=== PATIENT | male | born 1950 | race Caucasian/White ===

== ENCOUNTER 2018-07-11 11:59 | Outpatient (REF) | payer MEDICARE, BC, SELFPAY ==
[2018-07-11 12:50] LABS: Bilirubin Negative (Negative); Blood Trace-lysed (Negative); Clarity Clear; Glucose Negative (Negative); Ketones Negative (Negative); Leukocyte Esterase Negative (Negative); Nitrite Negative (Negative); Urobilinogen 0.2 EU/dL (Up TO 0.2)
[2018-07-11 13:19] LABS: Bacteria Rare HPF (Negative); C & S Indicated? No; Casts Negative LPF (Negative); Crystals Negative HPF (Negative); Epithelial Cells Rare HPF (Negative); Mucus Moderate (Negative); RBC 0-2 (0-2); WBC 0-2 HPF (0-5)
== END 2018-07-11 12:19 ==
LOC: LBN 11:59
PROVIDERS: PCP Emergency Medicine; Visit Provider Emergency Medicine
DX: R31.9 Hematuria, unspecified (principal)
CPT/HCPCS: 81003; 81015

== ENCOUNTER 2018-07-11 13:47 | Outpatient (CLI) | payer MEDICARE, BC, SELFPAY ==
--- NOTE | 2018-07-11 09:16 | DI.RAD_ITS ---
SYMPTOMS/DIAGNOSIS: ASTHMA, J45.909 PA AND LATERAL CHEST: Comparison 02/06/02. The heart size and pulmonary vasculature are within normal limits. The lungs are clear. No effusions or pneumothoraces are identified. The lungs appear somewhat hyperinflated with flattened diaphragms suggesting air trapping. Degenerative changes are seen in the spine. IMPRESSION: Hyperextended lungs which may reflect COPD. No focal acute infiltrates are seen.
== END 2018-07-11 14:07 ==
PROVIDERS: PCP Emergency Medicine; Visit Provider Emergency Medicine
DX: J45.909 Unspecified asthma, uncomplicated (principal); J44.9 Chronic obstructive pulmonary disease, unspecified
CPT/HCPCS: 71046

== ENCOUNTER 2019-03-12 16:48 | Outpatient (CLI) | payer MEDICARE, BC, SELFPAY ==
--- NOTE | 2019-03-12 13:15 | DI.RAD_ITS ---
SYMPTOMS/DIAGNOSIS: IMPINGEMENT SYNDROME OF LEFT SHOULDER, M75.42 LEFT SHOULDER: Multiple views. There are mild degenerative changes at the acromioclavicular joint. The glenohumeral joint appears well maintained. The bones are intact and normally mineralized. The soft tissues are unremarkable. IMPRESSION: Osteoarthritis of the left AC joint.
== END 2019-03-12 17:08 ==
PROVIDERS: PCP Emergency Medicine; Visit Provider Family Medicine
DX: M75.42 Impingement syndrome of left shoulder (principal); M19.012 Primary osteoarthritis, left shoulder
CPT/HCPCS: 73030

== ENCOUNTER → 2019-04-02 14:09 | Outpatient (BNVA) | payer MEDICARE, BC, SELFPAY | PROVIDERS: PCP Emergency Medicine; Referring Provider Emergency Medicine; Visit Provider Student in an Organized Health Care Education/Training Program | DX: M75.82 Other shoulder lesions, left shoulder (principal); I10 Essential (primary) hypertension | CPT/HCPCS: 20610; 99202; 99203; J1040 ==

== ENCOUNTER 2019-04-11 09:02 | Outpatient (CLI) | payer MEDICARE, BC, SELFPAY ==
[2019-04-11 13:17] LABS: Calculated LDL 85 mg/dL; Cholesterol 158 mg/dL (50-200); HDL Cholesterol 42 mg/dL (40-60); Triglyceride 157 mg/dL (30-150)
[2019-04-12 10:03] LABS: PSA, Screening 2.1 ng/ml (0-4.5)
== END 2019-04-11 09:22 ==
PROVIDERS: PCP Emergency Medicine; Visit Provider Emergency Medicine
DX: I10 Essential (primary) hypertension (principal); Z12.5 Encounter for screening for malignant neoplasm of prostate
CPT/HCPCS: 36415; 80061; 83721; 84153

== ENCOUNTER → 2019-05-21 12:51 | Outpatient (BNVA) | payer MEDICARE, BC, SELFPAY | PROVIDERS: PCP Emergency Medicine; Referring Provider Emergency Medicine; Visit Provider Student in an Organized Health Care Education/Training Program | DX: M75.82 Other shoulder lesions, left shoulder (principal); Z98.890 Other specified postprocedural states | CPT/HCPCS: 99213 ==

== ENCOUNTER 2019-05-25 08:49 | Outpatient (CLI) | payer MEDICARE, BC, SELFPAY ==
--- NOTE | 2019-05-25 09:35 | DI.MRI_ITS ---
SYMPTOM/DIAGNOSIS: LT SHOULDER PAIN, DECREASED RANGE OF MOTION LEFT SHOULDER MRI: Routine noncontrast examination was performed. There is hyperintense signal seen on the T 2 weighted images within the supraspinatus tendon at its insertion site consistent with a partial tear. The infraspinatus tendon is intact as are the subscapularis and teres minor tendons. The muscles show normal signal and size. No significant muscular fatty atrophy is present. The biceps tendon has a normal appearance and location. There is increased signal seen within the superior labrum consistent with a tear. The remainder of the labrum is grossly unremarkable. There are hypertrophic changes seen at the acromioclavicular joint consistent with degenerative change. Marrow signal is otherwise within normal limits. No evidence of an occult facture or avascular necrosis. There is a small amount of fluid in the joint space. No other abnormal fluid collections are seen. No soft tissue masses are appreciated. The ligaments appear grossly unremarkable. The articular cartilage at the glenohumeral joint appears unremarkable. IMPRESSION: 1. Partial tear involving the supraspinatus tendon. 2. Findings suggestive of a tear involving the superior labrum consistent with a slap-type II injury.
== END 2019-05-25 09:09 ==
PROVIDERS: PCP Emergency Medicine; Visit Provider Student in an Organized Health Care Education/Training Program
DX: M25.512 Pain in left shoulder (principal); M75.102 Unspecified rotator cuff tear or rupture of left shoulder, not specified as traumatic; S43.432A Superior glenoid labrum lesion of left shoulder, initial encounter
CPT/HCPCS: 73221

== ENCOUNTER → 2019-05-30 14:13 | Outpatient (BNVA) | payer MEDICARE, BC, SELFPAY | PROVIDERS: PCP Emergency Medicine; Referring Provider Emergency Medicine; Visit Provider Student in an Organized Health Care Education/Training Program | DX: M75.112 Incomplete rotator cuff tear or rupture of left shoulder, not specified as traumatic (principal); M19.012 Primary osteoarthritis, left shoulder | CPT/HCPCS: 99213 ==

== ENCOUNTER 2019-06-25 00:33 | Outpatient (CLI) | payer MEDICARE, BC, SELFPAY ==
--- NOTE | 2019-06-25 06:54 | DI.RAD_ITS ---
EXAM: RF JOINT INJECTION FLUORO GUID CLINICAL HISTORY: Left Shoulder Injection,LT ROTATOR CUFF TEAR, M75.102. TECHNIQUE: 2D and realtime digital imaging was performed. COMPARISON: No exams were available for comparison FINDINGS: A needle is positioned over the humeral head in conjunction with a joint injection carried out by Dr. Drummond. Contrast material is noted in the joint. Please see Dr. Drummond's procedure report for further information.
[2019-06-25] MEDS: Omnipaque 300 MG/ML 10 ML BTL IJ (07:55)
[2019-06-25] MEDS: Bupivacaine 0.5% Pres-Free 10 ML VIAL IJ (07:55)
[2019-06-25] MEDS: methylPREDNISolone ACETATE 80 MG/ML VIAL IM (14:41)
--- NOTE | 2019-06-25 16:50 | W.PROCNOTE ---
Date of service: 06/25/19 Time of Service: 08:06 Procedure Note Date of procedure: 06/25/19 Procedure: Left Shoulder Injection Surgeon/Proceduralist/Physician: Shubham Drummond Procedure Diagnosis: Left rotator cuff tendinitis Procedure Indications: Sal has had persistent pain of the LEFT shoulder. Noninvasive measures have been tried. To serve as both diagnostic and therapeutic, an injection under fluoroscopy was recommended. I had discussed the risks of the procedure and the patient elected to proceed. Procedure Description: Sal was greeted in the flouroscopy room. The correct side was identified and the consent was reviewed with the patient and signed. The patient was then placed in the supine position on the fluoroscopy table. The LEFT shoulder was then prepped with Chloraprep. The anterior injection starting point was identiifed by bony landmarks and fluoroscopy. The skin and soft tissue in the tract of the injection was anesthetized with 1% Lidocaine. A spinal needle was then inserted deep into the shoulder joint at the level of the recess between the glenoid and superior humeral head. A small amount of Omnipaque solution was injected to confirm intraarticular placement. Once confirmed, the shoulder was injected with 4cc of 0.5% Bupivicaine and 80mg of Depo-Medrol. A bandaid was placed on the injection site. The patient tolerated the procedure well and noted improvement in pre-injection pain.
== END 2019-06-25 00:53 ==
PROVIDERS: PCP Emergency Medicine; Visit Provider Student in an Organized Health Care Education/Training Program
DX: M75.102 Unspecified rotator cuff tear or rupture of left shoulder, not specified as traumatic (principal); M25.512 Pain in left shoulder; M75.82 Other shoulder lesions, left shoulder
CPT/HCPCS: 20610; 77002; J1040

== ENCOUNTER 2019-09-03 10:33 | Outpatient (CLI) | payer MEDICARE, BC, SELFPAY ==
--- NOTE | 2019-09-03 10:54 | DI.RAD_ITS ---
EXAM: XR THUMB LT INDICATION: L thumb CMC and MCP pain. COMPARISON: No exams were available for comparison TECHNIQUE: 2D digital imaging was performed. FINDINGS: At the 1st carpometacarpal joint, there is moderate joint space narrowing and prominent periarticular spurring. Mild subchondral sclerosis is present. The metacarpal phalangeal joint is well maintaine d. The interphalangeal joint shows joint space narrowing and periarticular spurring. The soft tissu es are unremarkable. IMPRESSION: Degenerative changes of the left thumb.
== END 2019-09-03 10:53 ==
PROVIDERS: PCP Emergency Medicine; Referring Provider Emergency Medicine; Visit Provider Student in an Organized Health Care Education/Training Program
DX: M79.645 Pain in left finger(s) (principal); M18.12 Unilateral primary osteoarthritis of first carpometacarpal joint, left hand; I10 Essential (primary) hypertension
CPT/HCPCS: 99214; 73140

== ENCOUNTER 2020-03-08 13:12 | Emergency (ER) | payer MEDICARE, BC, SELFPAY ==
[2020-03-08 13:20] VITALS: BP 149/77; PULSE 76; RESP 18; TEMP 36.7; O2SAT 95
--- NOTE | 2020-03-08 13:33 | W.ED.GENAD ---
Discharge Plan Disposition Patient Disposition: HOME Condition: Good Discharge Details Chief Complaint: Cellulitis Clinical Impression: Pain of toe of right foot Primary Care Provider: Adi Bonilla ED Provider: Luis Mchugh Home Meds and New Rx's Prescriptions: New prednisone 20 mg tablet 40 mg PO DAILY 5 Days Qty: 10 RF: 0 colchicine 0.6 mg capsule 0.6 mg PO BID Qty: 3 RF: 0 Continued amlodipine 10 mg tablet 10 mg PO DAILY Qty: 90 RF: 3 cephalexin 500 mg tablet 500 mg PO QID 7 Days Qty: 28 RF: 0 sildenafil [Viagra] 100 MG tablet 1 tab PO PRN Qty: 5 RF: 12 losartan-hydrochlorothiazide [Hyzaar] 100-25 mg tablet 1 tab PO DAILY Qty: 90 RF: 4 albuterol sulfate [Proventil HFA] 90 mcg/actuation HFA aerosol inhaler 2 puff Inhalation QID MDD 10 puffs PRN (Reason: asthma) Qty: 3 RF: 6 Flovent HFA 110 mcg/actuation HFA aerosol inhaler 2 puff Inhalation BID Qty: 3 RF: 6 pravastatin [Pravachol] 40 mg tablet 40 mg PO DAILY Qty: 90 RF: 4 Discharge Instructions Additional Instructions: We will ask our care management team to make you a follow-up appointment in podiatry clinic. Please begin the colchicine 1 tablet every 12 hours for a total of 3 doses. You may begin this this evening. You were given a first dose of prednisone and your next dose will be by prescription tomorrow. As we discussed we will continue treatment for skin infection with the previously prescribed cephalexin/Keflex. Please finish the entire course of this prescription. Return if develop a shaking chill, fever, or any other acute concerns. May apply ice to area to reduce discomfort. Elevate to reduce pain and swelling. Please wear an open toe shoe as we discussed. Medical Decision Making 70-year-old male presents from home stating he is on day 3 of right long/2nd toe erythema and pain. He was seen in clinic yesterday and started on What she has been taking. Overnight he feels there is subjective worsening for which he seeks evaluation today. He is afebrile and well-appearing. The DIP joint of the right 2nd toe is erythematous and swollen, tender to the touch. The patient's white blood cell count is 8, hematocrit 47, platelets 206. Chemistries reassuring, creatinine is 1.1, C-reactive protein 0.3, uric acid 5.8. X-ray with no evidence of acute fracture. See formal report. Discussed with patient that given the appearance, location, question evidence of crystal formation of the soft tissues, moderately elevated uric acid and CRP that I do feel there is a strong consideration for gout. We will continue Keflex. I will refer the patient to podiatry for recheck and follow-up. I will place him on 3 0.6 mg doses of colchicine and a brief burst of prednisone. He understands homecare, indications to seek reevaluation. Lab Data Lab results reviewed: Yes I reviewed the patient's lab results. Labs: Laboratory Results - last 24 hr 03/08/20 03/08/20 13:49 13:49 WBC 8.80 RBC 5.22 Hgb 16.3 Hct 47.1 MCV 90.2 MCH 31.2 MCHC 34.6 RDW 13.3 Plt Count 206 MPV 10.7 Immature Gran % 0.2 Neutrophils % 59.9 Lymphocytes % 24.0 Monocytes % 10.9 Eosinophils % 4.9 Basophils % 0.1 Absolute Neutrophils 5.27 Absolute Lymphocytes 2.11 Absolute Monocytes 0.96 H Absolute Eosinophils 0.43 Absolute Basophils 0.01 Sodium 139 Potassium 3.5 Chloride 102 Carbon Dioxide 26.8 Anion Gap 10.2 BUN 22 H Creatinine 1.14 Estimated GFR/1.73 m2 >= 60.00 Glucose 139 H Uric Acid 5.8 Calcium 8.7 C-Reactive Protein 0.36 H HPI General Mode of arrival: ambulatory. Date/Time Provider Initiated Documentation: 03/08/20 13:19. Information obtained by: patient. History of Present Illness 70 year old M presents to the emergency department with the chief complaint of Right third toe pain and erythema, on Keflex yesterday, described as moderate, Quality is described as dull and constant, and is localized to the right and lower extremity. Patient reports no radiation. Patient started experiencing this day(s) and it has been constant. No relieving factors improve symptom(s), No exacerbating factors reported . Patient notes other (No chills.); denies fever/chills. Patient did receive the following treatments prior to arrival, other (On Keflex since yesterday) Related Data Home Medications Medication Instructions Recorded Confirmed sildenafil [Viagra] 1 tab PO PRN #5 tab 12/08/16 03/08/20 losartan 100 1 tab PO DAILY #90 tab 03/13/19 03/08/20 mg-hydrochlorothiazide 25 mg tablet albuterol sulfate 90 mcg/actuation 2 puff INHALATION QID PRN #3 puff 07/24/19 03/08/20 aerosol inhaler MDD 10 puffs fluticasone propionate 110 2 puff INHALATION BID #3 puff 07/24/19 03/08/20 mcg/actuation HFA aerosol inhaler amlodipine 10 mg tablet 10 mg PO DAILY #90 tab 08/01/19 03/08/20 pravastatin 40 mg tablet 40 mg PO DAILY #90 tab-cap 09/11/19 03/08/20 cephalexin 500 mg tablet 500 mg PO QID 7 Days #28 tab 03/07/20 03/08/20 colchicine 0.6 mg PO BID #3 cap 03/08/20 prednisone 40 mg PO DAILY 5 Days #10 tab 03/08/20 Previous Rx's Medication Instructions Recorded losartan 100 1 tab PO DAILY #90 tab 03/13/19 mg-hydrochlorothiazide 25 mg tablet albuterol sulfate 90 mcg/actuation 2 puff INHALATION QID PRN #3 puff 07/24/19 aerosol inhaler MDD 10 puffs fluticasone propionate 110 2 puff INHALATION BID #3 puff 07/24/19 mcg/actuation HFA aerosol inhaler amlodipine 10 mg tablet 10 mg PO DAILY #90 tab 08/01/19 pravastatin 40 mg tablet 40 mg PO DAILY #90 tab-cap 09/11/19 cephalexin 500 mg tablet 500 mg PO QID 7 Days #28 tab 03/07/20 colchicine 0.6 mg PO BID #3 cap 03/08/20 prednisone 40 mg PO DAILY 5 Days #10 tab 03/08/20 Allergies Allergy/AdvReac Type Severity Reaction Status Date / Time enalapril Allergy Unknown RASH Verified 03/08/20 13:25 General Stated Complaint: Cellulitis BLAINE: 3 Review of Systems Narrative: No fever or chills, denies other injury or illness. 5 systems reviewed and negative. [facility] Medical History Asthma (Acute) BPH (benign prostatic hyperplasia) (Acute) Cardiac murmur (Acute) ECHO=trivial MR; stress echo=normal Essential hypertension (Acute 08/27/13) Generalized osteoarthrosis (Acute 05/02/12) RIGHT HIP W/ REPLACEMENT 05/2012 Hyperlipidemia (Acute) Obstructive sleep apnea syndrome (Acute) CPAP Polyuria (Inactive 05/26/12) PSA elevation (Acute 09/01/08) to Hina Undiagnosed cardiac murmurs (Acute) ECHO=trivial MR; stress echo=normal Surgical History Colonoscopy - MAC 2009 Status post hip replacement (Inactive) Total replacement of hip (~05/2012) right Family History Mother Hyperlipidemia Father Heart disease Myocardial infarction Sister No problems noted. Brother Heart disease Myocardial infarction Grandfather Heart disease Grandfather Heart disease Grandmother Hyperlipidemia Grandmother Stroke FAMILY HISTORY Heart disease Brother No problems noted. Sister No problems noted. Sister No problems noted. Brother No problems noted. Social History Smoking/Tobacco Use Status: Never Alcohol Intake: current Alcohol Intake frequency: 0-2 drinks per day Alcohol type: beer, wine and hard liquor Substance use type: does not use Household members: spouse current occupation: CPA Pets and animals: No Current gender identity: male What type of physical activity do you participate in: walking Duration: 30-45 minutes/day Frequency: 3-4 times per week Bhumi/Cheondoism: Scientology Special bhumi needs: No Do you feel safe at home: Yes Do you feel safe in your relationship?: Yes Exam Narrative Exam Narrative: GEN: awake, alert, oriented 3. Pleasant, well groomed, interactive. HEAD: Normocephalic, atraumatic EYES: PERRL, EOMI NECK: Full ROM, no PATRICK, no menigismus CHEST/RESP: Nontender, clear to auscultation bilateral, no wheeze/rhonchi/rales CARDIOVASCULAR: RRR, no murmur, rub alisa. 2+ Rad pulse bilateral EXT: Full ROM, right 2nd toe DIP joint is erythematous and tender. No distal or proximal tenderness. Palpable dorsalis pedis pulse bilaterally. The right foot is mildly warm to the touch. Neuro: Grossly normal neurologic exam, conversant, interactive. Psych: Speech fluent, thoughts congruent, affect normal Course Vital Signs Vital signs: Vital Signs Temperature 36.7 C 03/08/20 13:20 Pulse 76 03/08/20 13:20 Respiratory Rate 18 03/08/20 13:20 Blood Pressure 149/77 H 03/08/20 13:20 Pulse Oximetry 95 03/08/20 13:20 Temperature 36.7 C 03/08/20 13:20 Temperature Source Temporal Artery Scan 03/08/20 13:20 Pulse 76 03/08/20 13:20 Respiratory Rate 18 03/08/20 13:20 Respiratory Effort Non-Labored 03/08/20 13:27 Blood Pressure 149/77 H 03/08/20 13:20 Blood Pressure Position Sitting 03/08/20 13:20 Pulse Oximetry 95 03/08/20 13:20 Oxygen Delivery Method Room Air 03/08/20 13:20 Oxygen Flow Rate 0 03/08/20 13:20 Pain Level 1 03/08/20 13:20 Comment 03/08/20 13:20
[2020-03-08 13:59] LABS: Abs Immature Grans 0.02 k/cumm (0.0-0.09); Absolute Basophil Count 0.01 k/cumm (0.0-0.2); Absolute Eosinophil Count 0.43 k/cumm (0.0-0.7); Absolute Lymphocyte Count 2.11 k/cumm (1.2-3.4); Absolute Monocyte Count 0.96 k/cumm (0.11-0.7); Absolute Neutrophil Count 5.27 k/cumm (1.2-6.7); Basophils % 0.1; Eosinophils % 4.9; HCT 47.1 % (40.0-50.0); HGB 16.3 g/dL (13.5-17.5); Immature Grans % 0.2 %; Mean Corp. HGB Concentration 34.6 g/dL (32.0-36.0); Mean Corpuscular Hemoglobin 31.2 pg (27.0-33.0); Mean Corpuscular Volume 90.2 fL (80-95); Mean Platelet Volume 10.7 fL (8.0-11.0); Monocytes % 10.9; Neutrophils % 59.9; Platelet Count 206 x1000/uL (130-400); RBC 5.22 m/cumm (4.50-6.00); RBC Distribution Width 13.3 % (11.8-14.1)
[2020-03-08 14:07] LABS: Anion Gap 10.2 mmol/L (3-11); BUN 22 mg/dL (7-18); C-Reactive Protein 0.36 mg/dL (0.0-0.3); CO2 26.8 mmol/L (21.0-32.0); CREATININE 1.14 mg/dL (0.70-1.30); Calcium 8.7 mg/dL (8.5-10.1); Chloride 102 mmol/L (98-107); Glucose 139 mg/dL (74-106); Potassium 3.5 mmol/L (3.5-5.1); Sodium 139 mmol/L (136-145); Uric Acid 5.8 mg/dL (3.5-7.2)
--- NOTE | 2020-03-08 14:08 | DI.RAD_ITS ---
EXAM: XR TOE RT SECOND CLINICAL HISTORY: pain and swelling. TECHNIQUE: 2D digital imaging was performed. COMPARISON: No exams were available for comparison FINDINGS: BONES: No acute fracture is present. No bony destructive lesion is seen. JOINTS: No dislocation present. SOFT TISSUE: Soft tissue calcification medial to the middle phalanx of the 2nd toe. This is of uncer tain, if any clinical significance. The underlying bone is intact. No lytic or sclerotic lesion is seen. IMPRESSION: No evidence of acute fracture, dislocation, or subluxation. DATA REPOSITORY: RADIATION DOSE DELIVERED:
--- NOTE | 2020-03-08 14:15 | DI.VRAD_ITS ---
Addendum created by Sage Sofia MD on 03/08/2020 2:47:11 PM EDT Correction: There is a 5 mm ossifications in the on the medial aspect of the 2nd toe at the level of the middle phalanx which does not appear to be an acute process. Initial report created on 03/08/2020 2:14:56 PM EDT PROCEDURE INFORMATION: Exam: XR Right Toe(s) Exam date and time: 03/08/2020 2:02 PM Age: 70 years old Clinical indication: Toes; Right; Patient HX: 2nd toe pain, no known injury. Patient sts woke up and toe was red and swollen. No prev FX TECHNIQUE: Imaging protocol: XR Right toes. Views: Minimum 2 views. COMPARISON: No relevant prior studies available. FINDINGS: Bones/joints: Unremarkable. No acute fracture. Soft tissues: Normal. IMPRESSION: No acute findings. Dictated and Authenticated by: Sage Sofia MD. Ordering:HARVEY Smith MD
[2020-03-08] MEDS: predniSONE 40 MG, predniSONE 10 MG 50 MG PO (15:15)
--- NOTE | 2020-03-08 18:29 | NUR.NOTE ---
Nursing Note: podiatry consult faxed [facility]
== END 2020-03-08 15:19 | disposition home or self-care (01) ==
PROVIDERS: Emergency Provider Emergency Medicine; PCP Emergency Medicine
DX: M79.674 Pain in right toe(s) (principal); I10 Essential (primary) hypertension
CPT/HCPCS: 36415; 80048; 99284; 73660; 84550; 85025; 86140; J7512

== ENCOUNTER 2020-03-18 01:01 | Outpatient (CLI) | payer MEDICARE, BC, SELFPAY ==
[2020-03-18 17:21] LABS: Hemoglobin A1C 5.7 % (3.8-5.6)
== END 2020-03-18 01:21 ==
PROVIDERS: PCP Emergency Medicine; Visit Provider Emergency Medicine
DX: E11.9 Type 2 diabetes mellitus without complications (principal)
CPT/HCPCS: 36415; 83036

== ENCOUNTER 2020-05-19 10:46 | Outpatient (CLI) | payer MEDICARE, BC, SELFPAY ==
--- NOTE | 2020-05-19 11:00 | DI.RAD_ITS ---
EXAM: XR CHEST 2V PA LATERAL CLINICAL HISTORY: cough, SOB. r/o pneumonia,j40, bronchitis TECHNIQUE: 2D digital imaging was performed. COMPARISON: No exams were available for comparison FINDINGS: MEDIASTINUM: Normal. HEART: Normal. PULMONARY VASCULATURE: Normal. LUNGS: Clear. PLEURAL SPACE: No pleural effusion or pneumothorax. BONE:Normal. OTHER FINDINGS:Normal. IMPRESSION: No acute pulmonary findings. DATA REPOSITORY: RADIATION DOSE DELIVERED:
== END 2020-05-19 11:06 ==
PROVIDERS: PCP Emergency Medicine; Visit Provider Physician Assistant
DX: R05 Cough (principal); J40 Bronchitis, not specified as acute or chronic
CPT/HCPCS: 71046

== ENCOUNTER 2020-05-19 12:52 | Outpatient (CLI) | payer MEDICARE, BC, SELFPAY ==
[2020-05-21 21:15] LABS: SARS-CoV-2 RNA Undetected (Undetected); SARS-CoV-2 Specimen Source Nasopharynx
== END 2020-05-19 13:12 ==
PROVIDERS: PCP Emergency Medicine; Visit Provider Physician Assistant
DX: R05 Cough (principal); R06.02 Shortness of breath; J40 Bronchitis, not specified as acute or chronic
CPT/HCPCS: U0003; 71046

== ENCOUNTER 2020-06-30 07:27 | Outpatient (CLI) | payer MEDICARE, BC, SELFPAY ==
[2020-07-01 17:47] LABS: COVID-19 RT-PCR Result NEGATIVE (Negative)
== END 2020-06-30 07:47 ==
PROVIDERS: PCP Emergency Medicine; Visit Provider Family Medicine
DX: Z11.59 Encounter for screening for other viral diseases (principal); Z01.811 Encounter for preprocedural respiratory examination
CPT/HCPCS: U0003

== ENCOUNTER 2020-07-03 04:04 | Outpatient (CLI) | payer MEDICARE, BC, SELFPAY ==
[2020-07-03] MEDS: Albuterol HFA 18 GM 200 PUFF INH IH (12:03)
[2020-07-03] MEDS: Inhaler, Assist Device 1 EACH MC (12:03)
[2020-07-03] MEDS: Methacholine 100 MG VIAL IH (12:03)
--- NOTE | 2020-07-07 08:19 | W.PFT ---
Date of service: 07/03/20 Time of Service: 09:59 Pulmonary Function Test Result Interpretation Spirometry: Poor patient effort for spirometry. Spirometry shows mild obstructive airways disease with no significant bronchodilator response Lung Volumes: No evidence of restriction. Mild hyperinflation and air trapping Diffusion Capacity: Normal Airway Pressure: Normal Impression Poor patient effort for the spirometry. It shows Borderline mild obstructive airways disease with no significant bronchodilator response However these results may not be a true reflection of obstructive airways disease due to suboptimal patient effort Clinical Correlation therefore is recommended. Methacholine Challnege Test Date of Service Date of Service: 07/03/2020 Note After poor effort for spirometry showing possible borderline mild obstructive airways disease methacholine challenge testing was carried out up to methacholine concentration of 1 mg/mL at which point the patient had a 26% drop in FEV1 but again still showing a poor patient effort. Impression Positive methacholine challenge test.
== END 2020-07-03 04:24 ==
PROVIDERS: PCP Emergency Medicine; Visit Provider Emergency Medicine
DX: R05 Cough (principal); R94.2 Abnormal results of pulmonary function studies
CPT/HCPCS: 94060; 94726; 94729; 95070; 94010; J7674

== ENCOUNTER → 2021-02-10 13:15 | Outpatient (BNVA) | payer MEDICARE, BC, SELFPAY | PROVIDERS: PCP Emergency Medicine; Referring Provider Emergency Medicine; Visit Provider Surgery | DX: Z12.11 Encounter for screening for malignant neoplasm of colon (principal); Z12.12 Encounter for screening for malignant neoplasm of rectum ==

== ENCOUNTER 2021-03-26 06:07 | Day surgery (SDC) | payer MEDICARE, BC, SELFPAY ==
[2021-03-26 06:19] VITALS: BP 146/83; PULSE 65; RESP 16; TEMP 36.5; O2SAT 96
[2021-03-26] MEDS: Lactated Ringers 1,000 ML 80 ML IV (06:39)
--- NOTE | 2021-03-26 06:54 | W.ANESPRE ---
General Info Date of Service Date Performed: 03/26/21 Height: 6 ft Weight: 100.4 kg Body Mass Index (BMI): 29.9 Surgical Procedure: Operation Date: 03/26/21 07:35 Proposed Procedures Side Surgeon heather Miller MD Meds Allergies and Home Medications Allergies Allergy/AdvReac Type Severity Reaction Status Date / Time enalapril Allergy Unknown RASH Verified 03/24/21 11:42 Home Medication Medication Instructions Recorded sildenafil [Viagra] 1 tab PO PRN #5 tab 12/08/16 losartan 100 1 tab PO DAILY #90 tab 03/26/20 mg-hydrochlorothiazide 25 mg tablet budesonide-formoterol HFA 160 2 puff INHALATION BID #10.2 g 07/02/20 mcg-4.5 mcg/actuation aerosol inhaler albuterol sulfate 90 mcg/actuation 2 puff INHALATION QID PRN #3 puff 08/06/20 aerosol inhaler MDD 10 puffs amlodipine 10 mg tablet 10 mg PO DAILY #90 tab 08/06/20 pravastatin 40 mg tablet 40 mg PO DAILY #90 tab-cap 12/22/20 Current Visit Medications: Current Medications Generic Name Dose Route Start Last Admin Trade Name Freq PRN Reason Stop Dose Admin Ringer's Solution 1,000 mls @ 80 mls/hr 03/26/21 06:00 03/26/21 06:39 IV 04/24/21 23:59 80 mls/hr INFUSION SHERI Administration IV Miscellaneous Supplies 1 each 03/26/21 06:00 Iv Access IV 04/24/21 23:59 DIRECTED SHERI Sodium Chloride 0 ml 03/26/21 06:00 Normal Saline Flush 10 Ml Syr IV 04/24/21 23:59 PRN PRN Sodium Chloride 0 ml 03/26/21 06:00 Normal Saline 10 Ml Vial IJ 04/24/21 23:59 DIRECTED PRN Sterile Water 0 ml 03/26/21 06:00 Water,Injection,Sterile 10 Ml Vial IJ 04/24/21 23:59 DIRECTED PRN PFSH Active Problems Active Problems: Problem Status Onset Code Acromioclavicular joint arthritis M19.019 Left rotator cuff tear M75.102 Tendonitis of left rotator cuff M75.82 Neck pain M54.2 Cough R05 Bronchitis with acute wheezing J40 Arthritis of carpometacarpal (CMC) joint of left thumb M18.12 Asthma J45.909 BPH (benign prostatic hyperplasia) N40.0 Cardiac murmur R01.1 Essential hypertension 08/27/13 I10 Generalized osteoarthrosis 05/02/12 M15.9 Hyperlipidemia E78.5 Obstructive sleep apnea syndrome G47.33 PSA elevation 09/01/08 R97.20 Medical History Medical History Acromioclavicular joint arthritis Asthma BPH (benign prostatic hyperplasia) Cardiac murmur ECHO=trivial MR; stress echo=normal Essential hypertension (08/27/13) Generalized osteoarthrosis (05/02/12) RIGHT HIP W/ REPLACEMENT 05/2012 Hyperlipidemia Left rotator cuff tear Neck pain Obstructive sleep apnea syndrome CPAP Polyuria (05/26/12) PSA elevation (09/01/08) to Hina Tendonitis of left rotator cuff Injected: 04/02/2019 Surgical History Surgical History Colonoscopy - MAC 2008 Status post hip replacement Total replacement of hip (~05/2012) right Tobacco Smoking/Tobacco Use Status: Never Passive smoking exposure: No Alcohol Alcohol Intake: current Alcohol intake frequency: 0-2 drinks per day Alcohol type: beer, wine and hard liquor Substance Use Substance use type: does not use Vital Signs and Lab Results Vital Signs Most Recent Vital Signs in EMR: Most Recent Vital Signs Temp Pulse Resp BP Pulse Ox 36.5 C 65 16 146/83 H 96 03/26/21 06:19 03/26/21 06:19 03/26/21 06:19 03/26/21 06:19 03/26/21 06:19 Lab Results Blood Type / Crossmatch: No Data to Display Complete Blood Count: No Data to Display Complete Metabolic Panel: No Data to Display Liver Function Panel: No Data to Display Coagulation Panel: No Data to Display Cardiac Panel: No Data to Display Arterial Blood Gas: No Data to Display Venous Blood Gas: No Data to Display Pancreas Panel: No Data to Display Thyroid Panel: No Data to Display Infectious Disease: No Data to Display Blood Cultures: No Data to Display Toxicology Panel: No Data to Display Anesthesia Assessment and Plan Anesthesia History Personal History: No History of Anesthesia Complications Family History: No Family History of Anesthesia Complications Exercise Tolerance Exercise Tolerance: Metabolic Equivalents<4 Pertinent Negatives Pertinent Negatives: No Symptoms of GERD (Rare) and No Major Cardiovascular Symptoms or Complaints Cardiac & Pulmonary Exam Cardiac Exam: Normal S1/S2 Heart Sounds Pulmonary Exam: Clear Bilateral Breath Sounds Airway Exam Known Difficult Airway: No Mallampati Class: 3 Mouth Opening: Normal (> 3cm) Thyromental Distance: Greater than 3 cm Neck Range of Motion: Full ROM Neck Circumference: Normal Teeth Condition: Normal Dentition ASA Classification ASA Score: ASA 2 Emergency Case?: No NPO Status NPO Status: NPO Clears >2 hours, Solids >8 hours Anesthesia Plan Resuscitation Status: Full Code Anesthesia Technique: General Anesthesia Airway Planned: Natural Airway Monitors Used: Standard Monitors
[2021-03-26 07:00] VITALS: BMI 29.9
--- NOTE | 2021-03-26 07:33 | W.PM.HP.N ---
Date of service: 03/26/21 Time of Service: 07:38 Assessment and Plan Assessment and plan (1) Screening for colorectal cancer: Status: Acute Assessment and plan: 1) Encounter for colorectal cancer screening: Mr. Paul is a pleasant 71-year-old gentleman who is here today to discuss a screening colonoscopy. His last colonoscopy was in 2008 and was normal. He denies any changes in bowel habits, melena, hematochezia, abdominal pain, unintentional weight loss or family history of colon cancer. Risks, benefits and complications have been reviewed. Complications include but are not limited to bleeding, pain, perforation, missed small lesion/polyp, sore throat, aspiration and adverse reaction to the medications. Questions were entertained and answered to their satisfaction and they wished to proceed. No guarantees were given or implied. Proceed with colonoscopy under sedation Plan Detail Total time on date of encounter, ([id number] and non [id number]) (minutes): 20 Time was spent: providing direct patient care and documenting today's visit History of Present Illness History of Present Illness Chief Complaint: colorectal cancer screening Narrative: Mr. Paul is a 71 year old male who is here today to discuss a colonoscopy. His last colonoscopy was in 2008 and was normal. He denies any changes in bowel habits, melena, hematochezia, abdominal pain or family history of colon cancer. He is an active gentleman who does not have any shortness of breath with activity. His past medical history is significant for hypertension and hyperlipidemia. He does also have some asthma which is well controlled with Symbicort. He denies any chest pain. He has a benign cardiac murmur. He had an echo done which showed some very mild tricuspid regurg. He also underwent stress test which was normal. [facility] Medical History (Updated 03/26/21 @ 07:36 by Nish Miller MD) Acromioclavicular joint arthritis Asthma BPH (benign prostatic hyperplasia) Cardiac murmur ECHO=trivial MR; stress echo=normal Essential hypertension (08/27/13) Generalized osteoarthrosis (05/02/12) RIGHT HIP W/ REPLACEMENT 05/2012 Hyperlipidemia Left rotator cuff tear Neck pain Obstructive sleep apnea syndrome CPAP Polyuria (05/26/12) PSA elevation (09/01/08) to Hina Tendonitis of left rotator cuff Injected: 04/02/2019 Surgical History Colonoscopy - [facility] 2009 Status post hip replacement Total replacement of hip (~05/2012) right Family History Mother Hyperlipidemia Father Heart disease Myocardial infarction Brother Heart disease Myocardial infarction Grandfather Heart disease Grandfather Heart disease Grandmother Hyperlipidemia Grandmother Stroke FAMILY HISTORY Heart disease Social History Smoking/Tobacco Use Status: Never Smoking risk assessment performed?: Yes Alcohol Intake: current Alcohol Intake frequency: 0-2 drinks per day Alcohol type: beer, wine and hard liquor Substance use type: does not use Caregiver/Support person: No Household members: spouse Housing: house Communication Needs: None current occupation: CPA Pets and animals: No Sexually active: No Current gender identity: male What is your relationship status?: How often do you talk on the phone with friends or family?: decline to answer How often do you get together with friends or relatives?: decline to answer How often do you attend taoism or gnosticist services?: decline to answer Do you belong to any clubs or organized social groups?: decline to answer Panel score (0-1 are the most socially isolated patients): 1 What type of physical activity do you participate in: walking Duration: 30-45 minutes/day Frequency: 3-4 times per week Bhumi/Gnosticist: [employer] Special bhumi needs: No Do you feel safe at home: Yes Do you feel safe in your relationship?: Yes Meds Allergies and Home Medications Allergies Allergy/AdvReac Type Severity Reaction Status Date / Time enalapril Allergy Unknown RASH Verified 03/24/21 11:42 Home Medications Medication Instructions Recorded Confirmed Type sildenafil [Viagra] 1 tab PO PRN #5 tab 12/08/16 03/24/21 History losartan 100 1 tab PO DAILY #90 tab 03/26/20 03/26/21 Rx mg-hydrochlorothiazide 25 mg tablet budesonide-formoterol HFA 160 2 puff INHALATION BID #10.2 g 07/02/20 03/26/21 Rx mcg-4.5 mcg/actuation aerosol inhaler albuterol sulfate 90 mcg/actuation 2 puff INHALATION QID PRN #3 puff 08/06/20 03/26/21 Rx aerosol inhaler MDD 10 puffs amlodipine 10 mg tablet 10 mg PO DAILY #90 tab 08/06/20 03/26/21 Rx pravastatin 40 mg tablet 40 mg PO DAILY #90 tab-cap 12/22/20 03/26/21 Rx Exam Const General: cooperative, healthy appearing and comfortable Resp Effort & Inspection: normal respiratory effort Auscultation: clear to auscultation bilaterally Cardio Rate: regular rate Rhythm: regular rhythm Heart Sounds: S1 normal and S2 normal GI Palpation: soft, not firm, no guarding, not rigid and nontender Psych Appearance: grossly normal Mental Status: mental status grossly normal Speech and Movement: speech and movement normal Mood: congruent mood Affect: normal affect Attitude: cooperative Thought Content: normal Results Last Vital Signs Temp 97.7 F 03/26/21 06:19 Pulse 65 03/26/21 06:19 Resp 16 03/26/21 06:19 BP 146/83 H 03/26/21 06:19 Pulse Ox 96 03/26/21 06:19
[2021-03-26 08:25] VITALS: BP 124/84; PULSE 70; RESP 16; TEMP 36.4; O2SAT 93
--- NOTE | 2021-03-26 08:26 | W.ANESPOSTOP ---
Postoperative Evaluation Date, Time and Location Date Performed: 03/26/21 Time Performed: 08:26 Patient Location: Day Surgery Unit Vital Signs Most Recent Imported Vital Signs: Most Recent Vital Signs Temp Pulse Resp BP Pulse Ox 36.5 C 65 16 146/83 H 96 03/26/21 06:19 03/26/21 06:19 03/26/21 06:19 03/26/21 06:19 03/26/21 06:19 Most Recent Manually Entered Vital Signs: Adult Blood Pressure: 124/84 Heart Rate: 68 Respirations: 16 Oxygen Saturation (%): 95 Temperature (C): 36.4 C Pain Score (0-10 Scale): 0 Pain Score Most Recent Pain Score: Most Recent Pain Score Pain Level 10 03/26/21 06:19 Assessment Mental Status: Awake (Alert & Oriented to Patient Baseline) Airway and Respiratory Function: Patent airway with normal (patient baseline) respiratory exam Cardiovascular Function: Hemodynamically Stable Hydration Status: Adequately Hydrated Nausea & Vomiting: No Nausea or Vomiting Pain: Pt. Denies Any Pain Peripheral Nerve Block: Patient did not receive a nerve block
[2021-03-26 08:27] VITALS: BP 124/84; PULSE 68; RESP 16; TEMPC 36.4; O2SAT 95
--- NOTE | 2021-03-26 08:46 | W.COLOREPORT ---
Date of service: 03/26/21 Time of Service: 08:47 Colonoscopy Report Date of procedure: 03/26/21 Pre-op diagnosis general: screening for colorectal cancer Post-op diagnosis procedure note: same Procedure: Colonoscopy Surgeon: Nish Miller Anesthesia Type: MAC Estimated blood loss (mL): 0 Pathology: none sent Complications: None Disposition: same day Indications: This is a healthy 71-year-old male who presented for colorectal cancer screening. He has no complaints of abdominal pain, hematochezia, weight loss, or change in bowel habits. He has no family history of colorectal cancer. Prep: Miralax/Dulcolax Retraction Time: >12 minute Findings: normal colon, perianal skin tag Procedure Description: After informed consent was obtained, the patient was taken to the procedure room and placed in a left decubitus position. Monitors were applied and a time out was done. The patient's name, date of , procedure, allergies to medications, and metal in their body were reviewed. The patient was then sedated. Once sedated and comfortable, a digital rectal exam was done. External exam showed a skin tag. Internal exam revealed normal sphincter tone, and no palpable masses or gross blood. The colonoscope was then introduced and advanced to the cecum under direct visualization with no difficulty. The ileocecal valve and appendiceal orifice were visualized. The prep was good. The scope was then slowly withdrawn over 12 minutes in a circumferential manner to the rectum. In doing so, no polyps were encountered. There was no diverticulosis noted. The mucosa is pink and healthy. In the rectum, the scope was retroflexed, and no internal hemorrhoids were noted. The scope was straightened and withdrawn from the anus. The patient tolerated the procedure wll, and there were no immediate complications. The patient was taken to the Day Surgery Unit recovery area in good condition. Follow up: 10 years, or new symptoms
[2021-03-26 08:53] VITALS: BP 143/88; PULSE 60; RESP 16; TEMP 36.5; O2SAT 96
== END 2021-03-26 09:14 ==
LOC: SUR 06:07
PROVIDERS: PCP Emergency Medicine; Visit Provider Surgery
PROC: 0DJD8ZZ Inspection of Lower Intestinal Tract, Via Natural or Artificial Opening Endoscopic (ICD-10-PCS; CPT 45378; principal; 2021-03-26 07:30)
DX: Z12.11 Encounter for screening for malignant neoplasm of colon (principal); G47.33 Obstructive sleep apnea (adult) (pediatric); I10 Essential (primary) hypertension; E78.5 Hyperlipidemia, unspecified
CPT/HCPCS: G0121; J2704

== ENCOUNTER 2021-04-01 11:20 | Outpatient (CLI) | payer MEDICARE, BC, SELFPAY ==
--- NOTE | 2021-04-01 08:45 | DI.US_ITS ---
Exam(s) US SOFT TISSUE HEAD OR NECK EXAM: US SOFT TISSUE HEAD OR NECK CLINICAL HISTORY: Facial mass, R22.0, r/o cyst vs mass. TECHNIQUE: Ultrasound was performed using standard protocol. COMPARISON: No exams were available for comparison FINDINGS: Sonographic assessment utilizing grayscale and color Doppler imaging was performed and targeted to th e area of clinical concern. This is just lateral to the right eye There is a superficially located oval well-defined finding measuring approximately 10 x 6 millimeters with fluid interior and slightly thick wall measuring 2 millimeters. There does not appear to be a channel of communication to the overlying skin surface. IMPRESSION: As above. Appearance is most probably a sebaceous cyst or abscess. Appropriate follow-up recommende d DATA REPOSITORY:
== END 2021-04-01 11:40 ==
PROVIDERS: PCP Emergency Medicine; Visit Provider Nurse Practitioner Family
DX: R22.0 Localized swelling, mass and lump, head (principal)
CPT/HCPCS: 76536

== ENCOUNTER 2021-08-13 10:33 | Outpatient (CLI) | payer MEDICARE, BC, SELFPAY ==
--- NOTE | 2021-08-13 10:30 | RT.EKG_ITS ---
APPROVED REPORT Exam: Resting ECG Reason for Exam: chest discomfort Patient Location: O HR:78 bpm ECG Measurements Heart Rate 78 AXIS RI 205 P 27 QRSd 94 QRS 31 QT 381 T 98 QTc 436 Conclusion Sinus rhythm...normal P axis, V-rate 60- 99 Nonspecific T abnormalities, lateral leads...T <-0.10mV, I aVL V5 V6
== END 2021-08-13 10:34 | disposition home or self-care (01) ==
LOC: DI.CM 10:34
PROVIDERS: PCP Emergency Medicine; Visit Provider Physician Assistant
DX: R07.89 Other chest pain (principal)
CPT/HCPCS: 93010

== ENCOUNTER 2021-08-13 11:26 | Emergency (ER) | payer MEDICARE, BC, SELFPAY ==
[2021-08-13] VITALS (38 sets, daily range): BP systolic 116–142; BP diastolic 71–87; PULSE 67–79; RESP 10–21; TEMP 36.8; O2SAT 92–98
--- NOTE | 2021-08-13 11:15 | RT.EKG_ITS ---
APPROVED REPORT Exam: Resting ECG Reason for Exam: chest pain Patient Location: E HR:70 bpm ECG Measurements Heart Rate 70 AXIS IA 203 P 37 QRSd 88 QRS 16 QT 382 T 91 QTc 412 Conclusion Sinus rhythm...normal P axis, V-rate 60- 99 Nonspecific T abnormalities, lateral leads...T <-0.10mV, I aVL V5 V6. Sinus. No STEMI. I have reviewed and interpreted ECG and agree with software generated interpretation.
--- NOTE | 2021-08-13 11:29 | W.ED.GENAD ---
Discharge Plan Disposition Patient Disposition: HOME Condition: Stable Discharge Details Clinical Impression: Chest pain Primary Care Provider: Adi Bonilla ED Provider: Dulce Maria Iverson Home Meds and New Rx's Prescriptions: Continued clopidogrel 75 mg tablet 75 mg PO DAILY RF: 0 aspirin 81 mg tablet,chewable 81 mg PO DAILY RF: 0 acetaminophen [Tylenol Arthritis Pain] 650 mg tablet extended release 650 mg PO QID RF: 0 albuterol sulfate [Proventil HFA] 90 mcg/actuation HFA aerosol inhaler 2 puff Inhalation QID MDD 10 puffs PRN (Reason: asthma) Qty: 3 RF: 8 budesonide-formoterol [Symbicort] 160-4.5 mcg/actuation HFA aerosol inhaler 2 puff inhalation BID Qty: 10.2 RF: 6 sildenafil [Viagra] 100 MG tablet 1 tab PO PRN Qty: 5 RF: 12 atorvastatin 40 mg tablet 40 mg PO DAILY RF: 0 tramadol 50 mg tablet 50 mg PO PRN PRNRF: 0 metoprolol succinate 25 mg tablet extended release 24 hr 25 mg PO DAILY RF: 0 Discharge Instructions Instructions: Chest Pain (ED) Additional Instructions: Drink plenty of fluids and get plenty of rest. Continue your regular medications as directed. Follow-up with your primary care doctor for reevaluation and for referral to cardiology as directed. Return immediately to the emergency department if you develop any worsening or new concerning symptoms such as worsening chest pain, shortness of breath, dizziness or any other concerns. Referrals: Glenna Cruz MD [ [facility] STAFF PHYSICIAN] - Discharge Data Discharge Date/Time-TO BE ENTERED AT DEPARTURE: 08/13/21 16:05 Discharge Physician: Dulce Maria Iverson Medical Decision Making 71-year-old male with a history of remote history of PE post-op, hypertension, hyperlipidemia, sleep apnea and 1 month status post quadruple bypass in [place] presents for right-sided pleuritic chest pain this morning. EKG notes rate of 70, sinus, no STEMI, nondiagnostic. Vitals within normal limits. Patient appears comfortable and nontoxic. His midline surgical incision is healing well without signs of cellulitis. No right anterior chest tenderness. Differential diagnosis includes PE, ACS, musculoskeletal pain. History and presentation does not appear consistent with dissection. Will obtain cardiac work-up, CT chest. Labs and imaging reviewed. Troponin negative. CT chest notes small bilateral pleural effusions with question of bibasilar atelectasis versus pneumonia. No PE. He has no report of fever, cough or shortness of breath so presentation not consistent with pneumonia. Patient is agreeable to stay for repeat troponin which is negative. Repeat EKG unchanged. Case discussed with nurse practitioner Dulce Maria Stallworth from 's cardiothoracic surgeon Dr. Obi Cortez's practice in [place]. As patient work-up negative and history and presentation does not appear to with a cardiac etiology at this time, his pain could be residual due the previous multiple chest tubes, and overactive nerves postop. Patient is requesting to go home. Patient reassessed and he has no acute complaints. Advised to follow-up with Dr. Bonilla for reevaluation and for referral to cardiology. Usual and customary return precautions given prior to discharge. Medical Records Medical records reviewed: Yes I reviewed the patient's medical records. Imaging Data Radiologic Study: Radiologist's impression: CT CHEST PE CTA CLINICAL HISTORY: R sided chest pain, r/o acute pe, pneumonia. TECHNIQUE: Imaging Protocol: Axial CT angiography was performed with multi-slice acquisition and multi-planar and/or 3D reconstructions. CONTRAST MATERIAL: Intravenous: Omnipaque 350 Contrast volume:78 ml COMPARISON: CR XR CHEST 2V PA LATERAL from 05/19/2020 FINDINGS: Pulmonary Arteries: No evidence of filling defect to suggest pulmonary emboli. Tracheobronchial tree: Patent where visualized. Mediastinum and Madalyn: No dominant adenopathy or fluid collection. Pulmonary parenchyma: Mild respiratory motion and expiratory changes limit evaluation. Right basilar atelectasis. Greater left lower lobe atelectasis versus pneumonia. Pleura: Small bilateral pleural effusions. No pneumothorax. Heart: The heart is not dilated. Status post CABG severe coronary artery calcifications are seen. Aorta: Thoracic aorta non-dilated. Atherosclerotic changes. Upper abdomen: Unremarkable. Bones: Sternal wires. Degenerative changes, unremarkable for age. IMPRESSION: No evidence of pulmonary embolism. Small bilateral pleural effusions. Question of bibasilar atelectasis versus pneumonia. Lab Data Lab results reviewed: Yes I reviewed the patient's lab results. Labs: Laboratory Tests Range/Units 08/13/21 08/13/21 08/13/21 11:47 11:47 14:50 WBC (4.4-10.8) 10^3/uL 7.91 RBC (4.36-5.78) 10^6/uL 4.63 Hgb (13.5-17.5) g/dL 14.0 Hct (40.0-50.0) % 42.9 MCV (80-95) fL 92.7 MCH (27.0-33.0) pg 30.2 MCHC (32.0-36.0) % 32.6 RDW (11.8-14.1) % 13.1 Plt Count (130-400) 10^3/uL 541 H MPV (8.0-11.0) fL 9.4 Immature Gran % 0.4 Neutrophils % 58.6 Lymphocytes % 23.3 Monocytes % 11.5 Eosinophils % 5.6 Basophils % 0.6 Nucleated RBC % % 0 Absolute Neutrophils (1.2-6.7) 10^3/uL 4.64 Absolute Lymphocytes (1.2-3.4) 10^3/uL 1.84 Absolute Monocytes (0.1-0.8) 10^3/uL 0.91 H Absolute Eosinophils (0.0-0.7) 10^3/uL 0.44 Absolute Basophils (0.0-0.2) 10^3/uL 0.05 Sodium (136-145) mmol/L 138 Potassium (3.5-5.1) mmol/L 4.7 Chloride (98-107) mmol/L 102 Carbon Dioxide (21.0-32.0) mmol/L 29.1 Anion Gap (3-11) mmol/L 6.9 BUN (7-18) mg/dL 21 H Creatinine (0.70-1.30) mg/dL 1.1 Estimated GFR/1.73 m2 (mL/min/1.73m2) >= 60.00 Glucose (74-106) mg/dL 88 Calcium (8.5-10.1) mg/dL 9.1 Magnesium (1.8-2.4) mg/dL 2.6 H Total Bilirubin (0.2-1.0) mg/dL 0.5 AST (15-37) U/L 18 ALT (16-63) U/L 36 Alkaline Phosphatase (46-116) U/L 126 H Troponin I (<0.06) ng/mL < 0.05 < 0.05 Total Protein (6.4-8.2) g/dL 8.1 Albumin (3.4-5.0) g/dL 3.7 ECG Data Attestation: I personally reviewed and interpreted this ECG (s) as follows: Interpretation: #1 -- rate of 70, sinus, no acute ST elevation or depression. CO 203. QRS 88. QTc 412. #2 -- rate of 74, sinus, no acute ST elevation or depression. CO 217. QRS 92. QTc 420 HPI General Mode of arrival: ambulatory. Date/Time Provider Initiated Documentation: 08/13/21 11:27. Limitations to Documentation: no limitations. Information obtained by: patient. HPI Narrative: Patient is a 71-year-old male with a history of hypertension, hyperlipidemia, sleep apnea who is 1 month status post quadruple bypass while on vacation in [place] presents for right-sided chest pain that is worse with deep breath and movement since this morning. Patient states he has had intermittent chest and back pain which he felt was musculoskeletal since his surgery 1 month ago. He states the pain today is worse and that it is more constant and more intense on the right side. He states the pain is currently 4/10. He has not taken any medication for pain. He denies any fever, cough, shortness of breath, nausea, vomiting or dizziness. He does admit to a history of a pulmonary embolism after orthopedic surgery in the 1970s. He states he had not been treated with anticoagulation at that time as far as he knows. Related Data Home Medications Medication Instructions Recorded Confirmed sildenafil [Viagra] 1 tab PO PRN #5 tab 12/08/16 08/13/21 budesonide-formoterol HFA 160 2 puff INHALATION BID #10.2 g 07/02/20 08/13/21 mcg-4.5 mcg/actuation aerosol inhaler albuterol sulfate 90 mcg/actuation 2 puff INHALATION QID PRN #3 puff 08/06/20 08/13/21 aerosol inhaler MDD 10 puffs acetaminophen 650 mg 650 mg PO QID tab 08/13/21 08/13/21 tablet,extended release aspirin 81 mg chewable tablet 81 mg PO DAILY 08/13/21 08/13/21 atorvastatin 40 mg PO DAILY 08/13/21 08/13/21 clopidogrel 75 mg tablet 75 mg PO DAILY 08/13/21 08/13/21 metoprolol succinate 25 mg PO DAILY 08/13/21 08/13/21 tramadol 50 mg PO PRN PRN 08/13/21 08/13/21 Previous Rx's Medication Instructions Recorded budesonide-formoterol HFA 160 2 puff INHALATION BID #10.2 g 07/02/20 mcg-4.5 mcg/actuation aerosol inhaler albuterol sulfate 90 mcg/actuation 2 puff INHALATION QID PRN #3 puff 08/06/20 aerosol inhaler MDD 10 puffs Allergies Allergy/AdvReac Type Severity Reaction Status Date / Time enalapril Allergy Unknown RASH Verified 08/13/21 11:38 General BLAINE: 3 Review of Systems All systems reviewed & are unremarkable except as noted in HPI and below Constitutional Constitutional: Reports as per HPI, Denies chills and Denies fever(s) Eyes Eyes: Denies blurry vision ENT Ears, Nose, Mouth, and Throat: Denies dizziness, Denies sore throat and Denies throat swelling Cardiovascular Cardiovascular: Reports chest pain and Denies dyspnea Respiratory Respiratory: Denies cough and Denies dyspnea Gastrointestinal Gastrointestinal: Denies abdominal pain, Denies diarrhea and Denies vomiting Genitourinary Genitourinary: Denies hematuria and Denies dysuria Musculoskeletal Musculoskeletal: Denies back pain and Denies numbness Integumentary/Breasts Skin/Breast: Denies lesions and Denies rash Neurologic Neurologic: Denies dizziness, Denies localized weakness and Denies numbness Allergic/Immunologic Allergic/Immunologic: Denies throat swelling [facility] Medical History Acromioclavicular joint arthritis Asthma BPH (benign prostatic hyperplasia) Cardiac murmur ECHO=trivial MR; stress echo=normal Essential hypertension (08/27/13) Generalized osteoarthrosis (05/02/12) RIGHT HIP W/ REPLACEMENT 05/2012 Hyperlipidemia Left rotator cuff tear Neck pain Obstructive sleep apnea syndrome CPAP Polyuria (05/26/12) PSA elevation (09/01/08) to Hina Tendonitis of left rotator cuff Injected: 04/02/2019 [place] [facility] [place] Normal colonoscopy (~03/2021) Status post hip replacement Total replacement of hip (~05/2012) right Family History Mother Hyperlipidemia Father Heart disease Myocardial infarction Brother Heart disease Myocardial infarction Grandfather Heart disease Grandfather Heart disease Grandmother Hyperlipidemia Grandmother Stroke FAMILY HISTORY Heart disease Social History Smoking/Tobacco Use Status: Never Smoking risk assessment performed?: Yes Alcohol Intake: current Alcohol Intake frequency: 0-2 drinks per day Alcohol type: beer, wine and hard liquor Substance use type: does not use Caregiver/Support person: No Household members: spouse Housing: house Communication Needs: None current occupation: CPA Pets and animals: No Sexually active: No Current gender identity: male What is your relationship status?: How often do you talk on the phone with friends or family?: decline to answer How often do you get together with friends or relatives?: decline to answer How often do you attend pentecostal or temple services?: decline to answer Do you belong to any clubs or organized social groups?: decline to answer Panel score (0-1 are the most socially isolated patients): 1 What type of physical activity do you participate in: walking Duration: 30-45 minutes/day Frequency: 3-4 times per week Bhumi/Denominational: Che[employer]ism Special bhumi needs: No Do you feel safe at home: Yes Do you feel safe in your relationship?: Yes Exam Const General: cooperative and no acute distress HENMT Head: normal to inspection Face and sinus: normal facial exam Eyes General: appearance normal, both eyes and all related structures EOM: EOM intact bilaterally Neck Neck: normal visual inspection and No submandibular swelling Lymphatic: no lymphadenopathy noted Chest Chest/axillae images: 1. Well-healing vertical incision scar. No signs of cellulitis. Nontender. Resp Effort & Inspection: normal respiratory effort and able to speak in complete sentences Auscultation: clear to auscultation bilaterally Cardio Rate: regular rate Rhythm: regular rhythm GI Inspection: normal to inspection Palpation: soft, not firm, not rigid and nontender Auscultation: normal bowel sounds Skin General skin exam: no rashes or lesions noted Neuro General: patient alert, patient awake and patient oriented x3 Cognition: normal cognition Speech: speech normal Motor: muscle tone normal throughout Sensory Exam: no sensory deficits noted Extrem General: normal to inspection, full ROM, capillary refill normal, no calf tenderness bilaterally and no edema Psych Appearance: grossly normal Mental Status: mental status grossly normal Speech and Movement: speech and movement normal Affect: normal affect
--- NOTE | 2021-08-13 12:00 | DI.CT_ITS ---
Exam(s) CT CHEST PE CTA EXAM: CT CHEST PE CTA CLINICAL HISTORY: R sided chest pain, r/o acute pe, pneumonia. TECHNIQUE: Imaging Protocol: Axial CT angiography was performed with multi-slice acquisition and mu lti-planar and/or 3D reconstructions. CONTRAST MATERIAL: Intravenous: Omnipaque 350 Contrast volume:78 ml COMPARISON: CR XR CHEST 2V PA LATERAL from 05/19/2020 FINDINGS: Pulmonary Arteries: No evidence of filling defect to suggest pulmonary emboli. Tracheobronchial tree: Patent where visualized. Mediastinum and Madalyn: No dominant adenopathy or fluid collection. Pulmonary parenchyma: Mild respiratory motion and expiratory changes limit evaluation. Right basilar atelectasis. Greater left lower lobe atelectasis versus pneumonia. Pleura: Small bilateral pleural effusions. No pneumothorax. Heart: The heart is not dilated. Status post CABG severe coronary artery calcifications are seen. Aorta: Thoracic aorta non-dilated. Atherosclerotic changes. Upper abdomen: Unremarkable. Bones: Sternal wires. Degenerative changes, unremarkable for age. IMPRESSION: No evidence of pulmonary embolism. Small bilateral pleural effusions. Question of bibasilar atelectasis versus pneumonia. Findings were called to Dulce Maria Iverson of the emergency department. RADIATION DOSE DELIVERED: 438.77mGy.cm Total DLP DATA REPOSITORY: All CT scans at this facility are submitted to the National Radiology Data Registry (NRDR) Dose Index Registry (DIR) with the [employer] (ACR). RADIATION OPTIMIZATION: All CT scans at this facility use at least one of these dose optimization te chniques: automated exposure control; mA and/or kV adjustment per patient size (includes targeted exa ms where dose is matched to clinical indication); or iterative reconstruction.
[2021-08-13 12:05] LABS: Abs Immature Grans 0.03 10^3/uL (0.0-0.06); Absolute Basophil Count 0.05 10^3/uL (0.0-0.2); Absolute Eosinophil Count 0.44 10^3/uL (0.0-0.7); Absolute Lymphocyte Count 1.84 10^3/uL (1.2-3.4); Absolute Monocyte Count 0.91 10^3/uL (0.1-0.8); Absolute Neutrophil Count 4.64 10^3/uL (1.2-6.7); Basophils % 0.6; Eosinophils % 5.6; HCT 42.9 % (40.0-50.0); Immature Grans % 0.4; Lymphocytes % 23.3; MCH 30.2 pg (27.0-33.0); MCHC 32.6 % (32.0-36.0); MCV 92.7 fL (80-95); MPV 9.4 fL (8.0-11.0); Monocytes % 11.5; Neutrophils % 58.6; Nucleated RBC 0 %; Platelet Count 541 10^3/uL (130-400); RBC 4.63 10^6/uL (4.36-5.78); RDW 13.1 % (11.8-14.1); RDW-SD 44.4 fL; WBC 7.91 10^3/uL (4.4-10.8)
[2021-08-13] MEDS: Normal Saline 500 ML IV (12:10)
[2021-08-13 12:18] LABS: Albumin 3.7 g/dL (3.4-5.0); Alkaline Phosphatase 126 U/L (46-116); BUN 21 mg/dL (7-18); Bilirubin, Total 0.5 mg/dL (0.2-1.0); CREATININE 1.1 mg/dL (0.70-1.30); Calcium 9.1 mg/dL (8.5-10.1); Chloride 102 mmol/L (98-107); Glucose 88 mg/dL (74-106); Potassium 4.7 mmol/L (3.5-5.1); Sodium 138 mmol/L (136-145); Total Protein 8.1 g/dL (6.4-8.2)
[2021-08-13 12:19] LABS: ALT 36 U/L (16-63); AST 18 U/L (15-37); Anion Gap 6.9 mmol/L (3-11); CO2 29.1 mmol/L (21.0-32.0); Magnesium 2.6 mg/dL (1.8-2.4); Troponin I < 0.05 ng/mL (<0.06)
[2021-08-13] MEDS: Omnipaque 350 MG/ML 100 ML BTL IV (13:17)
--- NOTE | 2021-08-13 13:30 | RT.EKG_ITS ---
APPROVED REPORT Exam: Resting ECG Reason for Exam: chest pain Patient Location: E HR:74 bpm ECG Measurements Heart Rate 74 AXIS DE 217 P 10 QRSd 92 QRS 1 QT 384 T 85 QTc 426 Conclusion Sinus rhythm...normal P axis, V-rate 60- 99 Borderline prolonged DE interval...DE >212, V-rate 50- 90 Nonspecific T abnormalities, lateral leads...T <-0.10mV, I aVL V5 V6. Sinus. No STEMI. I have reviewed and interpreted ECG and agree with software generated interpretation.
[2021-08-13 15:16] LABS: Troponin I < 0.05 ng/mL (<0.06)
== END 2021-08-13 16:05 | disposition home or self-care (01) ==
PROVIDERS: Emergency Provider Physician Assistant; PCP Emergency Medicine
DX: R07.89 Other chest pain (principal); R07.81 Pleurodynia; J90 Pleural effusion, not elsewhere classified
CPT/HCPCS: 36415; 71275; 80053; 93005; 96360; 99285; 83735; 84484; 85025; 93010; 99284; J3490

== ENCOUNTER 2021-09-04 02:59 | Outpatient (CLI) | payer MEDICARE, BC, SELFPAY ==
[2021-09-04 23:03] LABS: Calculated LDL 49 mg/dL (<100); Cholesterol 115 mg/dL (<200); HDL Cholesterol 38 mg/dL (40-60); Triglyceride 143 mg/dL (<150)
== END 2021-09-04 03:00 | disposition home or self-care (01) ==
LOC: LBO 02:59
PROVIDERS: PCP Emergency Medicine; Visit Provider Emergency Medicine
DX: I10 Essential (primary) hypertension (principal); I21.9 Acute myocardial infarction, unspecified
CPT/HCPCS: 36415; 80061

== ENCOUNTER → 2021-09-07 09:34 | Outpatient (BNVA) | payer MEDICARE, BC, SELFPAY | PROVIDERS: PCP Emergency Medicine; Referring Provider Emergency Medicine; Visit Provider Internal Medicine Cardiovascular Disease | DX: I25.10 Atherosclerotic heart disease of native coronary artery without angina pectoris (principal); I48.0 Paroxysmal atrial fibrillation; I10 Essential (primary) hypertension; Z95.1 Presence of aortocoronary bypass graft | CPT/HCPCS: 99204; 99214 ==

== ENCOUNTER 2021-09-30 09:00 | Outpatient (RCR) | payer MEDICARE, BC, SELFPAY | END 2021-10-02 23:59 | disposition home or self-care (01) | LOC: CR 09:00 | PROVIDERS: PCP Emergency Medicine; Visit Provider Family Medicine | DX: Z51.89 Encounter for other specified aftercare (principal); I25.2 Old myocardial infarction; Z95.1 Presence of aortocoronary bypass graft | CPT/HCPCS: S9472 ==

== ENCOUNTER 2021-10-05 00:52 | Outpatient (CLI) | payer MEDICARE, BC, SELFPAY ==
--- NOTE | 2021-10-05 07:30 | DI.US_ITS ---
APPROVED REPORT EXAM: Comprehensive 2D, Doppler, and color-flow Echocardiogram Patient Location: Out-Patient Pipe Organ Mechanic: Zuly Simon RDCS (AE) Indications: s/p CABG, Murmur Other Information Study Quality: Adequate Conclusion Normal left ventricular wall thickness and chamber size. Estimated ejection fraction is 60%. Wall mot ion is normal Normal right ventricular size and systolic function Both atria are normal in size The aortic valve is sclerotic and trileaflet without stenosis or regurgitation Moderate mitral annular calcification. Trace mitral regurgitation Normal tricuspid valve with trace regurgitation Dilated aortic root (3.5 cm), ascending aorta (4.28 centimeters) Wall motion Left Ventricle The left ventricle is normal size. The left ventricular systolic function is normal. The left ventric ular ejection fraction is within the normal range. There is normal left ventricular wall thickness. T here is normal LV segmental wall motion. Left ventricular filling pattern is normal for age. Transmit ral Doppler flow pattern suggests impaired LV relaxation. There is no ventricular septal defect visua lized. LVEF is 59%. Right Ventricle The right ventricle is normal size. The right ventricular systolic function is normal. Atria The left atrium size is normal. The right atrium size is normal. The interatrial septum is intact wit h no evidence for an atrial septal defect. Aortic Valve The Aortic valve is sclerotic. Aortic valve is trileaflet. There is no aortic valvular stenosis. No a ortic regurgitation is present. Mitral Valve Moderate mitral annular calcification. No evidence of mitral valve stenosis. Trace mitral regurgitati on. Tricuspid Valve The tricuspid valve is normal in structure. There is no tricuspid valve stenosis. Trace tricuspid reg urgitation. Pulmonic Valve The pulmonary valve is normal in structure. There is no pulmonic valvular stenosis. There is no pulmo katty valvular regurgitation. Great Vessels The aortic root is normal in size. The ascending aorta is dilated.4.28 cm IVC is normal in size and c ollapses >50% with inspiration. Pericardium There is no pericardial effusion. 2D Dimensions IVSD d PLAX 0.92 cm M: 0.6-1.2 LV Vol A2C d MOD 89.4 mL LVPW d PLAX 0.93 cm M: 0.6 - 1.2 LV Vol A4C d MOD 128.3 mL LVID d PLAX 4.64 cm M: 4.2 - 5.8 LA vol/ BSA A2C s A-L 26.4 mL/m2 LVDs 3.00 cm M: 2.5 - 4.0 LA vol/ BSA A4C s A-L 19.1 mL/m2 Ao Root d 3.50 cm M: 3.1 - 3.7 LA Vol/ BSA Biplane s A-L 23.0 mL/m2 RA Area A4C 11.87 cm2 LA Area A4C s MOD 16.05 cm2 RA Vol/ BSA A4C s A-L 11.0 mL/m2 LA Area A2C s MOD 18.39 cm2 Ao Asc Diam d 4.28 cm M: 2.6 - 3.4 LV EF A4C MOD 59.7 % LV EF Teichholz 63.8 % LV EF A2C MOD 59.0 % LVEF (Mixon's) 58.65 % M: 52 - 72 LV EF Biplane MOD 58.6 % LV Volume 81.63 mL M: 62 - 150 SV 64.84 mL LV Volume Index 38.87 mL/m2 M: 34 - 74 SV Index 30.90 mL/m2 LV Vol Biplane MOD 110.6 mL FS 34.60 % LV Diastology MV E' medial 0.082 (>0.07 m/s) E/A Ratio 1.2 LV E/e MED 10.50 (<14) MV E Vmax 0.87 (0.4-1.3 m/s) MV E' lateral 0.127 (>0.1 m/s) MV A Vmax 0.70 (0.4-1.3 m/s) LV E/e LAT 6.80 (<14) MV E/A Ratio 1.17 MV E/E' medial 10.54 MV E/E' lateral 6.81 Aortic Valve LVOT Area 2.84 cm2 AoV Area Vmax 2.04 cm2 LVOT Vmax 1.47 m/s AoV Area/ BSA (Vmax) 0.97 cm2/m2 LVOT Mean Sang. 0.94 m/s [place] Mean Sang. 1.83 cm2 LVOT Peak Grad 8.6 mmHg [place] Mean Sang. Index 0.87 cm2/m2 LVOT Mean Grad 4.2 mmHg LVOT VTI 0.282 m LVOT Diam s 1.90 cm AoV Vmax 2.05 m/s Velocity Ratio 0.71 AoV Mean Sang. 1.46 m/s AoV Peak Grad 16.8 mmHg LVOT SV 80.08 mL AoV Mean Grad 9.4 mmHg AoV VTI 0.378 m AoV Area VTI 2.12 cm2 AoV Area/ BSA (VTI) 1.01 cm/m2 Mitral Valve MV DT 220 (160-240 msec) MV PHT 64 msec MV Area PHT 3.45 cm2 MV VTI 0.301 m MV Area VTI 2.66 (4.0-6.0 cm2) Pulmonary Valve PV Vmax 1.15 (0.5-1.5 m/s) RVOT Peak Gr. 1.94 mmHg PV Peak Grad 5.3 mmHg RVOT Mean Gr. 0.85 mmHg PV Mean Grad 3.0 mmHg RVOT VTI 0.128 m PV VTI 0.204 m RVOT Vmax 0.70 m/s Tricuspid Valve TR Peak Grad 23.6 mmHg TR Vmax 2.43 m/s RA Pressure 3.00 mmHg RVSP (TR) 26.7 mmHg
== END 2021-10-05 01:12 ==
PROVIDERS: PCP Emergency Medicine; Visit Provider Internal Medicine Cardiovascular Disease
DX: R01.1 Cardiac murmur, unspecified (principal); Z95.1 Presence of aortocoronary bypass graft; I35.8 Other nonrheumatic aortic valve disorders; I77.810 Thoracic aortic ectasia
CPT/HCPCS: 93306

== ENCOUNTER 2021-11-02 09:00 | Outpatient (RCR) | payer MEDICARE, BC, SELFPAY | END 2021-11-02 23:59 | disposition home or self-care (01) | LOC: CR 09:00 | PROVIDERS: PCP Emergency Medicine; Visit Provider Family Medicine | DX: Z51.89 Encounter for other specified aftercare (principal); I25.2 Old myocardial infarction; Z95.1 Presence of aortocoronary bypass graft; I25.10 Atherosclerotic heart disease of native coronary artery without angina pectoris | CPT/HCPCS: S9472 ==

== ENCOUNTER 2021-11-25 11:00 | Outpatient (RCR) | payer MEDICARE, BC, SELFPAY | END 2021-11-30 23:59 | disposition home or self-care (01) | LOC: CR 11:00 | PROVIDERS: PCP Emergency Medicine; Visit Provider Family Medicine | DX: I25.2 Old myocardial infarction (principal); Z95.1 Presence of aortocoronary bypass graft; Z51.89 Encounter for other specified aftercare | CPT/HCPCS: S9472 ==

== ENCOUNTER 2021-12-03 09:43 | Outpatient (CLI) | payer MEDICARE, BC, SELFPAY ==
--- NOTE | 2021-12-03 09:00 | DI.RAD_ITS ---
Exam(s) XR SHOULDER RT COMPLETE 2+V EXAM: XR SHOULDER RT COMPLETE 2+V CLINICAL HISTORY: R shoulder pain. TECHNIQUE: 2D digital imaging was performed. FINDINGS: BONES: No acute fracture is present. No bony destructive lesion is seen. Spurring at the lesser tube rosity. JOINTS: Glenohumeral joint space is well maintained. No dislocation present. Spurring at AC joint a nd tip of the acromion. Mild spurring inferior glenoid. SOFT TISSUE: Normal. IMPRESSION: Degenerative changes. No acute abnormality. DATA REPOSITORY: RADIATION DOSE DELIVERED:
== END 2021-12-03 09:44 | disposition home or self-care (01) ==
LOC: DIORS 09:43
PROVIDERS: PCP Emergency Medicine; Referring Provider Emergency Medicine; Visit Provider Student in an Organized Health Care Education/Training Program
DX: M25.511 Pain in right shoulder (principal); S43.431A Superior glenoid labrum lesion of right shoulder, initial encounter; X58.XXXA Exposure to other specified factors, initial encounter; M75.81 Other shoulder lesions, right shoulder
CPT/HCPCS: 99214; 73030

== ENCOUNTER → 2021-12-07 09:52 | Outpatient (BNVA) | payer MEDICARE, BC, SELFPAY | PROVIDERS: PCP Emergency Medicine; Referring Provider Emergency Medicine; Visit Provider Internal Medicine Cardiovascular Disease | DX: I48.0 Paroxysmal atrial fibrillation (principal); I25.10 Atherosclerotic heart disease of native coronary artery without angina pectoris; Z95.1 Presence of aortocoronary bypass graft; I10 Essential (primary) hypertension | CPT/HCPCS: 99214; 99213 ==

== ENCOUNTER 2021-12-17 01:36 | Outpatient (CLI) | payer MEDICARE, BC, SELFPAY ==
--- NOTE | 2021-12-17 08:30 | DI.RAD_ITS ---
Exam(s) RF JOINT INJECTION FLUORO GUID EXAM: RF JOINT INJECTION FLUORO GUID CLINICAL HISTORY: R SHOULDER INJ UNDER FLUORO,rt shoulder pain, m25.511 TECHNIQUE: Fluoroscopy provided. Radiologist not present. CONTRAST MATERIAL: None COMPARISON: No exams were available for comparison FINDINGS: Fluoroscopy was provided for right shoulder therapeutic injection. Submitted image(s) reveal needle tip in the glenohumeral joint at the level of the upper inner quadra nt of the humeral head. Some intra-articular contrast is noted. Please refer to the procedure report for complete details. Cumulative Dose: felix Velazquez=2.51 mGy IMPRESSION: RADIATION DOSE DELIVERED:
--- NOTE | 2021-12-17 15:00 | W.PROCNOTE ---
Procedure Note Date of procedure: 12/17/21 Procedure: Right Shoulder Injection Surgeon/Proceduralist/Physician: Shubham Drummond Procedure Diagnosis: Right Shoulder Pain Procedure Indications: Sal has had persistent pain of the RIGHT shoulder. Noninvasive measures have been tried. To serve as both diagnostic and therapeutic, an injection under fluoroscopy was recommended. I had discussed the risks of the procedure and the patient elected to proceed. Procedure Description: Sal was greeted in the flouroscopy room. The correct side was identified and the consent was reviewed with the patient and signed. The patient was then placed in the supine position on the fluoroscopy table. The RIGHT shoulder was then prepped with Chloraprep. The anterior injection starting point was identiifed by bony landmarks and fluoroscopy. The skin and soft tissue in the tract of the injection was anesthetized with 1% Lidocaine. A spinal needle was then inserted deep into the shoulder joint at the level of the recess between the glenoid and superior humeral head. A small amount of Omnipaque solution was injected to confirm intraarticular placement. Once confirmed, the shoulder was injected with 4cc of 0.5% Bupivicaine and 80mg of Depo-Medrol. A bandaid was placed on the injection site. The patient tolerated the procedure well.
[2021-12-17] MEDS: Bupivacaine 0.5% Pres-Free 10 ML VIAL 5 ML IJ (15:02)
[2021-12-17] MEDS: Omnipaque 300 MG/ML 10 ML BTL IJ (15:03)
[2021-12-17] MEDS: methylPREDNISolone ACETATE 80 MG/ML VIAL IM (15:04)
== END 2021-12-17 01:56 ==
PROVIDERS: PCP Family Medicine; Visit Provider Student in an Organized Health Care Education/Training Program
DX: M25.511 Pain in right shoulder (principal)
CPT/HCPCS: 20610; 77002; J1040

== ENCOUNTER 2021-12-30 09:00 | Outpatient (RCR) | payer MEDICARE, BC, SELFPAY | END 2021-12-31 23:59 | disposition home or self-care (01) | LOC: CR 09:00 | PROVIDERS: PCP Emergency Medicine; Visit Provider Family Medicine | DX: Z51.89 Encounter for other specified aftercare (principal); I25.2 Old myocardial infarction; Z95.1 Presence of aortocoronary bypass graft | CPT/HCPCS: S9472 ==

== ENCOUNTER 2022-01-01 03:34 | Outpatient (RCR) | payer MEDICARE, BC, SELFPAY | END 2022-01-30 23:59 | disposition home or self-care (01) | LOC: CR 03:34 | PROVIDERS: PCP Family Medicine; Visit Provider Internal Medicine Cardiovascular Disease | DX: Z51.89 Encounter for other specified aftercare (principal); I25.2 Old myocardial infarction; Z95.1 Presence of aortocoronary bypass graft | CPT/HCPCS: S9472 ==

== ENCOUNTER 2022-02-24 11:43 | Outpatient (REF) | payer MEDICARE, BC, SELFPAY ==
[2022-02-25 17:57] LABS: COVID-19 RT-PCR UVMMC Result Negative (Negative)
== END 2022-02-24 11:44 | disposition home or self-care (01) ==
LOC: LBN 11:43
PROVIDERS: PCP Family Medicine; Visit Provider Family Medicine
DX: Z20.822 Contact with and (suspected) exposure to COVID-19 (principal)
CPT/HCPCS: U0003; U0005

== ENCOUNTER → 2022-04-29 01:43 | Outpatient (CLI) | payer MEDICARE, BC, SELFPAY ==
--- NOTE | 2022-04-29 08:00 | DI.RAD_ITS ---
Exam(s) XR KNEE LT 3V AP,LAT,ALEX EXAM: XR KNEE LT 3V AP,LAT,ALEX CLINICAL HISTORY: left knee pain, M25.569. TECHNIQUE: 2D digital imaging was performed of the left knee. Three images were obtained. AP, late ral and PA tunnel views were obtained. COMPARISON: No priors for comparison. FINDINGS: BONES: No acute fracture is present. No bony destructive lesion is seen. JOINTS: The knee is normally aligned. There is a moderate joint effusion. Mild spurring of the poste rior patella is noted. SOFT TISSUE: Atherosclerosis is present. Surgical clips are seen in the soft tissues. IMPRESSION: 1. Moderate joint effusion. 2. Mild degenerative changes. DATA REPOSITORY: RADIATION DOSE DELIVERED:
== END ==
PROVIDERS: PCP Family Medicine; Visit Provider Family Medicine
DX: M17.12 Unilateral primary osteoarthritis, left knee (principal); M25.462 Effusion, left knee
CPT/HCPCS: 73562

== ENCOUNTER → 2022-06-21 09:45 | Outpatient (BNVA) | payer MEDICARE, BC, SELFPAY | PROVIDERS: PCP Family Medicine; Visit Provider Internal Medicine Cardiovascular Disease | DX: I25.810 Atherosclerosis of coronary artery bypass graft(s) without angina pectoris (principal); Z95.1 Presence of aortocoronary bypass graft; I10 Essential (primary) hypertension; E78.5 Hyperlipidemia, unspecified | CPT/HCPCS: 99214; 99213 ==

== ENCOUNTER → 2022-06-29 14:06 | Outpatient (CLI) | payer MEDICARE, BC, SELFPAY ==
--- NOTE | 2022-06-29 09:30 | DI.RAD_ITS ---
Exam(s) XR CHEST 2V PA LATERAL EXAM: XR CHEST 2V PA LATERAL CLINICAL HISTORY: ASTHMA--J45.909 TECHNIQUE: 2D digital imaging was performed of the chest. Three images were obtained. PA and later al views were obtained. COMPARISON: CR XR CHEST 2V PA LATERAL from 05/19/2020 FINDINGS: MEDIASTINUM: Normal. HEART: Normal. PULMONARY VASCULATURE: Normal. LUNGS: Clear. The lungs are hyperinflated consistent with underlying COPD. PLEURAL SPACE: No pleural effusion or pneumothorax. BONE:Within normal limits for the patient's age. Patient is status post CABG. OTHER FINDINGS:Normal. IMPRESSION: No acute pulmonary findings. DATA REPOSITORY: RADIATION DOSE DELIVERED:
--- OUTSIDE RECORDS SUMMARY | 2022-06-29 14:22 | XMS_ITS | Encounter Summary ---
:1950 Author Organization [facility] [place] [address] Care Team Providers Name Role Phone ChadAdi Felicia Primary Care Provider Encounter Details Date Type Department Care Team Description 05/19/2012 Anti-Coag Orthopaedics at [facility] Emani Saldivar Osteoarthritis of Telephone Visit [facility] [place] [phone] Social History Tobacco Use Types Packs/Day Years Used Date Never Smoker Smokeless Tobacco: Never Used Alcohol Use Standard Drinks/Week Comments Yes 0 (1 standard drink = 0.6 oz pure alcoho l) Sex Assigned at Date Recorded Not on file documented as of this encounter Progress Notes Emani Saldivar RN - 05/19/2012 4:16 PM EDT Anticoagulation Therapy Telephone Note: Indication: DVT Prophylaxis S/P Joint Replacement Duration of treatment: 3 months (Hx of DVT) Anticipated End Date:ends 08/16 INR:1.6 Lovenox Qd until INR is 2.5 Drawn by:vna Next INR Due:Tuesday 05/22 Patient Contact Preference: Message left on answering machine E-Mail: x Spoke with patient's Warfarin dose : x Increased Decreased Maintained Bleeding: Epistaxis Black tarry stools Gingival bleeding Abnormal bruising Hematuria surgical site Hemoptysis x No bleeding / bruising reported Recent medication changes: Yes x No Have you missed a dose of Coumadin? Yes x No Dietary Changes: Yes x No documented in this encounter Plan of Treatment Not on filedocumented as of this encounter Procedures Procedure Name Priority Date/Time Associated Diagnosis Comme nts EXTERNAL LAB RESULTS Routine 05/19/2012 Results for this procedure are i n the results section . documented in this encounter Results (ABNORMAL) External Lab Results (05/19/2012) P athologist Signature POC INR 1.6 0.9 - 1.1 (External Lab) Specimen (Source) Anatomical Location Collection Method / Collectio n Time Received Time / Laterality Volume 05/19/2012 Historical Provider CHEMISTRY ORDERABLES documented in this encounter Visit Diagnoses Diagnosis Osteoarthritis of right hip Osteoarthrosis, unspecified whether gene ralized or localized, pelvic region and thigh documented in this encounter Care Teams Radio Station Manager Relationship Specialty Start Date End Date Adi Bonilla DO PCP - General 08/25/10 08/24/15 [address] [place] [address] documented as of this encounter
--- OUTSIDE RECORDS SUMMARY | 2022-06-29 14:22 | XMS_ITS | Encounter Summary ---
:1950 Author Organization [facility] [place] [address] Care Team Providers Name Role Phone Adi Bonilla DO Primary Care Provider Reason for Referral Consultation (Routine) - Canceled Specialty Diagnoses / Procedures Referred By Contact Refer red To Contact Plastic Surgery Diagnoses Digital mucinous cyst of finger Keisha Iraheta MD [facility] Plastic Surg [address] [facility] [address] [place] [address] [place] [address] Referral ID Status Reason Start Date Expiration Date Visits V isits Requested Authorized [id number] Canceled Consult, 08/16/2017 08/16/2018 1 1 Test & Treat Reason for Visit Reason Comments Skin Lesion Consultation (Routine) - Closed Specialty Diagnoses / Procedures Referred By Contact Refer red To Contact Dermatology Diagnoses lesion of finger Adi Bonilla DO [facility] [address] [place], [place] [address] [place] [phone] Fax: Referral ID Status Reason Start Date Expiration Date Visits V isits Requested Authorized [id number] Closed Evaluate and 07/05/2017 07/05/2018 1 1 Treat Connection Center Encounter Details Date Type Department Care Team Description 08/15/2017 Office Visit Dermatology at [facility] Keisha Iraheta MD Digital mucinous cyst [address] [facility] of finger (Primary [address] Dx) [place] [address] [phone] [address]-DERMATOLOGY [place], [place] [address] Social History Tobacco Use Types Packs/Day Years Used Date Never Smoker Smokeless Tobacco: Never Used Alcohol Use Standard Drinks/Week Comments Yes 0 (1 standard drink = 0.6 oz pure alcoho l) Sex Assigned at Date Recorded Not on file documented as of this encounter Progress Notes Keisha Iraheta MD - 08/15/2017 10:20 AM EST Images from the original note were not included. DERMATOLOGY - NEW PATIENT NOTE Date of service: 08/15/2017 Sal Paul : 1950, 67 y.o. CC: Nodule on the finger. HPI: Sal Paul is a 67 y.o. male referred by Adi Bonilla with the following concerns: Right 4th finger tender eroded lesion present for 6 months, no previous treatments. He has expresseda clear fluid from the lesion in the past. It gets inflamed on-off ever few weeks. Relevant Skin History: - Skin cancer (including type): None Family History: Melanoma: None Relevant Social History: - CPA - Medications: Reviewed. Allergies: No Known Allergies Review of Systems: - General: Feels well. Denies unintentional weight loss, fever, night sweats, severe pain at site ofinterest. - Skin: No other skin concerns. Examination: - Constitutional: Patient was alert, well-appearing and in no noticeable distress. - Skin: focused exam of the right hand Diagnosis/Skin findings/Assessment/Plan: 1. Digital mucous cyst: right ring finger at the proximal nail fold: erythematous papule ~6 mm with erosion and corresponding nail distrophy. -discussed nature of this benign growth, a pseudocyst from the joint capsule, oftne 2/2 arthritis -infection possible if inoculated, therefore care must be taken to prevent trauma -definitive Tx is w excision Refer to plastic surgery. -Rx: Mupirocin ointment TID for 1-2 weeks during inflammation in case of bacterial infection -ROS today negative to suggest active infection RTC: PRN. The following photos were obtained with patient consent: Note initiated by eKly Winkler LPN. I am documenting this encounter acting as the scribe for and in the presence of Keisha Iraheta MD: I performed the above scribed service and agree with the accuracy of the documentation in this encounter. Reviewed and signed by Keisha Iraheta MD Resident in Dermatology [facility] Patient seen in conjunction with staff data solutions architect: Lisa Guerra MD Section of Dermatology [facility] Lisa Guerra MD - 08/15/2017 10:20 AM EST I directly supervised Dr. Iraheta in the care of this patient. I saw and evaluated this patient with Dr. Iraheta. He presented the history and physical exam details to me, then we saw the patient together and I confirmed these findings. I agree with details as written. My physical examination confirms Dr. Iraheta's findings. The assessment and plan were formulated in discussion with me at the time of visit and I agree with them as documented. LISA GUERRA MD FAAD Staff Physician documented in this encounter Plan of Treatment Scheduled Referrals Name Type Priority Associated Diagnoses Order S chedule Referral to Hand Outpatient Referral Routine Digital Mucinous Ordered: Clinic Cyst Of Finger 08/16/2017 documented as of this encounter Visit Diagnoses Diagnosis Digital mucinous cyst of finger - Primar y documented in this encounter Care Teams Optical Fabricator Relationship Specialty Start Date End Date Adi Bonilla DO PCP - General Family Medicine 08/25/15 05/26/[address] [place] [address] documented as of this encounter
--- OUTSIDE RECORDS SUMMARY | 2022-06-29 14:22 | XMS_ITS | Encounter Summary ---
:1950 Author Organization [facility] Address [address] [place] [address] Care Team Providers Name Role Phone Adi Bonilla Primary Care Provider Encounter Details Date Type Department Care Team Description 10/23/2012 Hospital Encounter XRay at [facility] Anticoagulated on Coumadin; [address] [place] [address] H/O total hip arthroplasty; [place], [place] Status post hip replacement [phone] Social History Tobacco Use Types Packs/Day Years Used Date Never Smoker Smokeless Tobacco: Never Used Alcohol Use Standard Drinks/Week Comments Yes 0 (1 standard drink = 0.6 oz pure alcoho l) Sex Assigned at Date Recorded Not on file documented as of this encounter Medications at Time of Discharge Medication Sig Dispensed Refills Start Date End Date losartan-hydrochlorothiazi Take 1 tablet by 0 de (HYZAAR) 100-25 mg per mouth daily. tablet amlodipine (NORVASC) 5 mg Take 5 mg by mouth 0 tablet daily. atorvastatin (LIPITOR) 40 Take 1 tablet by 30 tablet 0 05/0305/22/2013 mg tablet mouth every evening. albuterol (PROVENTIL Inhale 2 puffs into 0 05/27/2016 HFA;VENTOLIN HFA) 90 the lungs every 4 mcg/actuation inhaler hours as needed. Use with spacer fluticasone (FLOVENT) 110 Inhale 1 puff into 0 05/27/2016 mcg/actuation inhaler the lungs 2 times daily. sildenafil (VIAGRA) 100 mg 100MG, PO, PRN 0 03/2505/23/2019 tablet documented as of this encounter Plan of Treatment Not on filedocumented as of this encounter Procedures Procedure Name Priority Date/Time Associated Diagnosis Comme nts XR PELVIS AP AND Routine 10/23/2012 12:41 Anticoagulated on Re sults for this HIP 2 VIEWS OF 1 PM EST Coumadin procedure are in HIP H/O total hip the results arthroplasty section. Status post hip replacement documented in this encounter Results XR pelvis AP and hip 2 views of 1 hip (10/23/2012 12:41 PM EST) Anatomical Region Laterality Modality Pelvis, Hip N/A Radiographic Imaging Specimen (Source) Anatomical Collection Method Collection Time Re ceived Time Location / / Volume Laterality 10/23/2012 12:41 PM EST Narrative 10/23/2012 3:33 PM EST Examination AP PELVIS AND 2 VIEWS ONE HIP/RIGHT Clinical History Status Post CARY Comparison June 2012. Technique Findings The cementless right total hip arthropla sty is unchanged in appearance and alignment and no radiolucencies or perip rosthetic fracture. ??The left hip joint space is preserved with several fine andrey tabular labral calcifications. Impression Uncomplicated cementless right total hip arthroplasty. Procedure Note Ericka Garza MD - 10/23/2012Formatt ing of this note might be different from the original. Examination AP PELVIS AND 2 VIEWS ONE HIP/RIGHT Clinical History Status Post CARY Comparison June 2012. Technique Findings The cementless right total hip arthropla sty is unchanged in appearance and alignment and no radiolucencies or perip rosthetic fracture. The left hip joint space is preserved with several fine andrey tabular labral calcifications. Impression Uncomplicated cementless right total hip arthroplasty. Anthony Benitez MD IMG DX ORDERABLES documented in this encounter Visit Diagnoses Diagnosis Anticoagulated on Coumadin Encounter for therapeutic drug monitorin g H/O total hip arthroplasty Hip joint replacement by other means Status post hip replacement Hip joint replacement by other means documented in this encounter Care Teams Division Operations Manager Relationship Specialty Start Date End Date Adi Bonilla DO PCP - General 08/25/10 08/24/15 [address] [place] [address] documented as of this encounter
--- OUTSIDE RECORDS SUMMARY | 2022-06-29 14:22 | XMS_ITS | Encounter Summary ---
:1950 [place] [address] Care Team Providers Name Role Phone Adi Bonilla DO Primary Care Provider Reason for Visit Reason Comments Rash Consultation (Routine) - Closed Specialty Diagnoses / Procedures Referred By Contact Refer red To Contact Dermatology Diagnoses RASH Adi Bonilla DO [facility] Dermatology [address] [place], [place] [address] [place] [phone] Fax: Referral ID Status Reason Start Date Expiration Date Visits V isits Requested Authorized [id number] Closed Consult, 08/25/2015 08/24/2016 1 1 [facility] Encounter Details Date Type Department Care Team Description 10/21/2015 Office Visit Dermatology at Tristen Talley MD [facility] [address] [place] [address] Seborrheic dermatitis; Alicia Nowak PA [facility] [place] [address] Facial eczema [address] [place] [address] Social History Tobacco Use Types Packs/Day Years Used Date Never Smoker Smokeless Tobacco: Never Used Alcohol Use Standard Drinks/Week Comments Yes 0 (1 standard drink = 0.6 oz pure alcoho l) Sex Assigned at Date Recorded Not on file documented as of this encounter Patient Instructions Patient InstructionsFoRosa Maria garcia LPN - 10/21/2015 3:29 PM EST Dry Skin Care You have been diagnosed with Seborrheic Dermatitis that requires a sensitive skin care regimen. It is very important to follow this plan as outlined below. ?? Take short, cool showers. Use soap only where absolutely needed. Pat skin dry. ?? Immediately after bathing, apply moisturizing cream to body. ?? Use only the following personal care products. They are are recommended by our clinic because they have been extensively tested and are least likely to cause distress to your skin. ?? Soap: Dove Unscented Bar Soap or Vanicream bar soap ?? Facial cleanser: CeraVe Foaming Facial Cleanser or CeraVe Hydrating Cleanser ?? Shampoo and Conditioner: Free&Clear shampoo, Free&Clear conditioner ?? Moisturizer: CeraVe cream, CeraVe lotion, CeraVe lite lotion, Vanicream cream ?? Laundry Detergent: ALL Free&Clear. Do not use fabric softener or dryer sheets. Treat with Ketoconazole cream apply to areas on face twice daily, wean off as skin improves, then use as needed for active flares Okay to mix OTC Hydrocortisone cream with Ketoconazole for a short period of time. Steroids should be used infrequently documented in this encounter Progress Notes Robert Shields MD - 10/28/2015 1:54 PM EST Patient seen and examined. Slight scale on glabella and nasolabial fold c/w seborrheic dermatitis. Will try topical ketoconale cream twice daily, if flares mix with OTC hydrocortisone. Follow sensitiveskin care and call if there is no improvement or worsening. Patient seen in conjunction with Alicia Navarro PA-C Signed by: ROBERT SHIELDS MD Section of Dermatology [facility] Alicia Navarro PA - 10/21/2015 2:57 PM EST DERMATOLOGY - NEW PATIENT NOTE Date of service: 10/21/2015 Sal Paul : 1950 Dermatology Physician Lathe Mechanic Note: Alicia Navarro PA-C Chief Complaint Patient presents with ??? Rash Mr. Sal Paul is a 65 y.o. male. This is a new patient referred by Adi Bonilla DO HPI: Mr. Paul presents for a rash that is not evident for today's visit. This started approximately 12 months ago Patient reports skin appeared: Flaky, dry, whitish areas: zygoma, malar, paranasal area, n/l folds sometimes chin and eyelids; not very itchy Rash lasts about 3-4 days, resolves with OTC Cortisone This condition has appeared twice this winter Uses unknown soap, new shave cream in the past year or so, does not moisturize. H/o scalp dandruff, denies h/o eczema. Past Skin History: No known h/o melanoma No known h/o non-melanoma skin cancer No known h/o eczema, atopy No known h/o psoriasis, or other skin disease Medical History: Patient Active Problem List Diagnosis Code ??? Asthma J45.909 ??? HTN (hypertension) I10 ??? Hypercholesteremia E78.0 ??? 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 Elevated PSA R97.2 ??? BPH (benign prostatic hypertrophy) without obstruction N40.0 ??? Heart murmur R01.1 ??? CIRO (obstructive sleep apnea)- on CPAP in past G47.33 ??? Elevated blood sugars- minimal R73.09 Procedure Screening Questions: Defibrillator/Pacemaker: No Artificial Joints: Right THR 2012 Heart Valves: No Blood Thinners: No Prophylactic Antibiotics: Yes Medications: Current Outpatient Prescriptions Medication Sig Dispense Refill ??? pravastatin (PRAVACHOL) 40 mg Tablet Take 1 tablet by mouth daily. ??? losartan-hydrochlorothiazide (HYZAAR) 100-25 mg per tablet Take 1 tablet by mouth daily. ??? albuterol (PROVENTIL HFA;VENTOLIN HFA) 90 mcg/actuation inhaler Inhale 2 puffs into the lungs every 4 hours as needed. Use with spacer ??? fluticasone (FLOVENT) 110 mcg/actuation inhaler Inhale 1 puff into the lungs 2 times daily. ??? amlodipine (NORVASC) 5 mg tablet Take 5 mg by mouth daily. ??? sildenafil (VIAGRA) 100 mg tablet 100MG, PO, PRN No current facility-administered medications for this visit. Allergies: No Known Allergies Family History: No known h/o melanoma No known h/o non-melanoma skin cancer No known h/o eczema, atopy No known h/o psoriasis, or other skin disease Social History: Occupation: [employer] Recreation: Golf, Bicycle Other environmental exposures: No Has Pets:No Other animal exposures: No Recent Travel History: [place] for a weekend in September Review of Systems: General: Feels well Skin: As per HPI; no other skin concerns Examination: Constitutional: Patient was pleasant, alert, well-appearing and in no noticeable distress. Skin:abbreviated skin examination was performed.This includes the face Skin Type: 2 Specific skin findings: 1. slightly scaly overlying erythematous patches on glabella, nasolabial folds, and mental crease. Diagnosis/Assessment/Treatment Plan: 1. Seborrheic Dermatitis and or Eczema, I discussed this condition with the patient and explored therapeutic options. I recommended treating with: - Rx: Ketoconazole cream, apply to affected areas 2 times daily until rash resolves, then use as needed for active flares. 1-2x/wk for maintenance PRN. - Mix OTC Hydrocortisone cream with Ketoconazole only with active flares - Encouraged sensitive skin care to avoid potential allergy/irritant skin contacts - Discussed chronic/recurrent nature and need for flare vs maintenance tx - Dry/Sensitive Skin Care You have been diagnosed with a condition that requires a sensitive skin care regimen. It is very important to follow this plan as outlined below. ?? Take short, cool showers. Use soap only where absolutely needed. Pat skin dry. ?? Immediately after bathing, apply moisturizing cream to body. ?? Use only the following personal care products. They are are recommended by our clinic because they have been extensively tested and are least likely to cause distress to your skin. ?? Soap: Dove Unscented Bar Soap or Vanicream bar soap ?? Facial cleanser: CeraVe Foaming Facial Cleanser or CeraVe Hydrating Cleanser ?? Shampoo and Conditioner: Free&Clear shampoo, Free&Clear conditioner ?? Moisturizer: CeraVe cream, CeraVe lotion, CeraVe lite lotion, Vanicream cream ?? Laundry Detergent: ALL Free&Clear. Do not use fabric softener or dryer sheets. At least half of this 30 min appointment was spent [id number] in counseling with this patient. We discussed pathophysiology, diagnosis, treatment, concerns, expectations and follow-up with regard to the patient's diagnosis. I also addressed the patient's concerns and answered questions with regard to the above. LOS: [id number] RTC in 2 months, sooner if symptoms worsen Appointment made when patient departed Instructed to call with questions or concerns. Note initiated by ROSA MARIA SAMAYOA LPN I am documenting this encounter acting as the scribe for and in the presence of Alicia Navarro PA-C I performed the above scribed service and agree with the accuracy of the documentation in this encounter. Reviewed and signed by Alicia Navarro PA-C Dermatology [facility] Patient seen in conjunction with/supervision of Attending Physician: Robert Shields MD Section of Dermatology [facility] documented in this encounter Plan of Treatment Not on filedocumented as of this encounter Visit Diagnoses Diagnosis Seborrheic dermatitis Seborrheic dermatitis, unspecified Facial eczema Contact dermatitis and other eczema, due to unspecified cause documented in this encounter Care Teams Nurses Superintendent Relationship Specialty Start Date End Date Adi Bonilla DO PCP - General Family Medicine 08/25/15 05/26/[address] [place] [address] documented as of this encounter
--- OUTSIDE RECORDS SUMMARY | 2022-06-29 14:22 | XMS_ITS | Encounter Summary ---
:1950 Author Organization [facility] Address [address] [place] [address] Care Team Providers Name Role Phone Adi Bonilla DO Primary Care Provider Reason for Visit Reason Comments Joint Replacement SP R CARY DOS 05/16/12 Encounter Details Date Type Department Care Team Description 05/29/2014 Office Visit Orthopaedics at [facility] Anthony Benitez H/O total hip arthroplasty, right (Primary Dx); [facility] MD Amanda Status post [place] [address] [place] [address] ORTHOPAEDIC SURGERY [place] [address] Social History Tobacco Use Types Packs/Day Years Used Date Never Smoker Smokeless Tobacco: Never Used Alcohol Use Standard Drinks/Week Comments Yes 0 (1 standard drink = 0.6 oz pure alcoho l) Sex Assigned at Date Recorded Not on file documented as of this encounter Last Filed Vital Signs Vital Sign Reading Time Taken Comments Blood Pressure 127/70 05/29/2014 1:21 PM EDT Pulse 73 05/29/2014 1:21 PM EDT Temperature - - Respiratory Rate - - Oxygen Saturation - - Inhaled Oxygen Concentration - - Weight 93 kg (205 lb) 05/29/2014 1:21 PM EDT Height 182.9 cm (6') 05/29/2014 1:21 PM EDT Body Mass Index 27.8 05/29/2014 1:21 PM EDT documented in this encounter Progress Notes Anthony Benitez - 05/29/2014 1:40 PM EDT Mr. Paul is a 64-year-old gentleman who is now two years status post right total hip replacement, specifically ceramic on high-density polyethylene. He really has no major complaints. On occasion, he is aware that he describes some muscle twinge, but for all practical purposes, he is unlimited as far as his activity. Facitiously asking if he can still climb up ladders which he still does with confidence.. On his physical exam while seated, I can bring him through an excellent range of motion with neither pain nor apprehension. He can rise from a chair without use of his arms and his gait is within normal limits. He still has some slight atrophy of the right thigh musculature, but it is of no clinical significance. His x-rays continued to show satisfactory position of the implant. Nothing to suggest stress shielding, implant failure, loosening, or malposition. Contralateral hip is free of any significant disease. ASSESSMENT: Very satisfactory course. Admonitions about extremes of motion, good foot care, and dental prophylaxis were emphasized. We will see him in two year's time for followup with x-rays or earlier p.r.n. CC: Adi Bonilla DO documented in this encounter Plan of Treatment Not on filedocumented as of this encounter Visit Diagnoses Diagnosis H/O total hip arthroplasty, right - Prim mary Status post hip replacement Hip joint replacement by other means documented in this encounter Care Teams Sustainable Communities Designer Relationship Specialty Start Date End Date Adi Bonilla DO PCP - General 08/25/10 08/24/[address] [place] [address] documented as of this encounter
--- OUTSIDE RECORDS SUMMARY | 2022-06-29 14:22 | XMS_ITS | Encounter Summary ---
:1950 Author Organization [facility] [place] [address] Care Team Providers Name Role Phone Adi Bonilla DO Primary Care Provider Encounter Details Date Type Department Care Team Description 06/27/2012 Anti-Coag Orthopaedics at [facility] [place] [place] Cara Flores Osteoarthritis of Telephone Visit [facility] GUILLAUME [place] [phone] Social History Tobacco Use Types Packs/Day Years Used Date Never Smoker Smokeless Tobacco: Never Used Alcohol Use Standard Drinks/Week Comments Yes 0 (1 standard drink = 0.6 oz pure alcoho l) Sex Assigned at Date Recorded Not on file documented as of this encounter Progress Notes Cara Flores RN - 06/27/2012 2:49 PM EDT Anticoagulation Therapy Telephone Note: Sal Cintia Beverly 1950 Surgeon:Emmanuel Indication: DVT Prophylaxis S/P Joint Replacement Duration of treatment: 3 months (Hx of DVT) Anticipated End Date:ends 08/16 INR: Drawn by: Next INR Due:patient transferred back to Dr Bonilla's patient's PCP for 06/20/12. Chart of Coumadindosing and INRS faxed to office. Spoke with Glenna GALAVIZ who states they took over care on 06/20/12. Patient Contact Preference: Message left on answering machine E-Mail: Spoke with patient Warfarin dose : Increased Decreased Maintained Bleeding: Epistaxis Black tarry stools Gingival bleeding Abnormal bruising Hematuria surgical site Hemoptysis x No bleeding / bruising reported Recent medication changes: Yes x No Have you missed a dose of Coumadin? Yes x No Dietary Changes: Yes x No Anticoagulation Therapy Telephone Note: Sal Paul 1950 Surgeon:Emmanuel Indication: DVT Prophylaxis S/P Joint Replacement Duration of treatment: 3 months (Hx of DVT) Anticipated End Date:ends 08/16 INR:3.0 Drawn by:nidia Fields Next INR Due:06/15/12 This will be done at our lab as he has an appointment. [facility] is discharging him so he will need to get his INR's done as an outpatient. Patient Contact Preference: Message left on answering machine E-Mail: x Spoke with patient Warfarin dose : Increased X Decreased Maintained Bleeding: Epistaxis Black tarry stools Gingival bleeding Abnormal bruising Hematuria surgical site Hemoptysis x No bleeding / bruising reported Recent medication changes: Yes x No Have you missed a dose of Coumadin? Yes x No Dietary Changes: Yes x No documented in this encounter Plan of Treatment Not on filedocumented as of this encounter Visit Diagnoses Diagnosis Osteoarthritis of right hip Osteoarthrosis, unspecified whether gene ralized or localized, pelvic region and thigh documented in this encounter Care Teams Electric Motors Salesperson Relationship Specialty Start Date End Date Adi Bonilla DO PCP - General 08/25/10 08/24/15 [address] [place] [address] documented as of this encounter
--- OUTSIDE RECORDS SUMMARY | 2022-06-29 14:22 | XMS_ITS | Encounter Summary ---
:1950 Author Organization [facility] [place] [address] Care Team Providers Name Role Phone Adi Bonilla DO Primary Care Provider Encounter Details Date Type Department Care Team Description 06/06/2012 Anti-Coag Orthopaedics at [facility] Bianca Jama Osteoarthritis of Telephone Visit [facility] [place] [phone] Social History Tobacco Use Types Packs/Day Years Used Date Never Smoker Smokeless Tobacco: Never Used Alcohol Use Standard Drinks/Week Comments Yes 0 (1 standard drink = 0.6 oz pure alcoho l) Sex Assigned at Date Recorded Not on file documented as of this encounter Progress Notes Bianca Jama RN - 06/06/2012 1:17 PM EDT Anticoagulation Therapy Telephone Note: Sal Cintia Beverly 1950 Surgeon:Emmanuel Indication: DVT Prophylaxis S/P Joint Replacement Duration of treatment: 3 months (Hx of DVT) Anticipated End Date:ends 08/16 INR:2.9 Drawn by:keturah Fields Next INR Due:06/08/12 Patient Contact Preference: Message left on answering machine E-Mail: x Spoke with patient Warfarin dose : Increased x Decreased Maintained Bleeding: Epistaxis Black tarry stools [...] Name Priority Date/Time Associated Diagnosis Comme nts POCT INR Routine 06/06/2012 Results for thi s procedure are in the resu lts section. documented in this encounter Results (ABNORMAL) POCT INR (06/06/2012) P athologist Signature POC INR 2.9 0.9 - 1.1 (External Lab) Comment: [facility] Historical Provider POINT OF CARE TEST ORDERABLE S documented in this encounter Visit Diagnoses Diagnosis Osteoarthritis of right hip Osteoarthrosis, unspecified whether gene ralized or localized, pelvic region and thigh documented in this encounter Care Teams Pond Scaler Relationship Specialty Start Date End Date Adi Bonilla DO PCP - General 08/25/10 08/24/15 [address] [place] [address] documented as of this encounter
--- OUTSIDE RECORDS SUMMARY | 2022-06-29 14:22 | XMS_ITS | Encounter Summary ---
:1950 Author Organization [facility] [place] [address] Care Team Providers Name Role Phone Adi Bonilla DO Primary Care Provider Encounter Details Date Type Department Care Team Description 05/25/2012 Anti-Coag Orthopaedics at [facility] Cara Flores Osteoarthritis of Telephone Visit [facility] [place] [phone] Social History Tobacco Use Types Packs/Day Years Used Date Never Smoker Smokeless Tobacco: Never Used Alcohol Use Standard Drinks/Week Comments Yes 0 (1 standard drink = 0.6 oz pure alcoho l) Sex Assigned at Date Recorded Not on file documented as of this encounter Progress Notes Cara Flores RN - 05/25/2012 12:50 PM EDT Anticoagulation Therapy Telephone Note: Sal Paul 1950 Surgeon:Emmanuel Indication: DVT Prophylaxis S/P Joint Replacement Duration of treatment: 3 months (Hx of DVT) Anticipated End Date:ends 08/16 INR:2.3 Drawn by:keturah Fields Next INR Due:05/29/12 Patient Contact Preference: Message left on answering machine E-Mail: x Spoke with patient's Warfarin dose : Increased Decreased X Maintained Bleeding: Epistaxis Black tarry stools Gingival [...] Diagnosis Comme nts EXTERNAL LAB RESULTS Routine 05/25/2012 Results for this procedure are i n the results section . documented in this encounter Results (ABNORMAL) External Lab Results (05/25/2012) P athologist Signature POC INR 2.3 0.9 - 1.1 (External Lab) Comment: [facility] Health Specimen (Source) Anatomical Location Collection Method / Collectio n Time Received Time / Laterality Volume 05/25/2012 Historical Provider CHEMISTRY ORDERABLES documented in this encounter Visit Diagnoses Diagnosis Osteoarthritis of right hip Osteoarthrosis, unspecified whether gene ralized or localized, pelvic region and thigh documented in this encounter Care Teams Radio Station Manager Relationship Specialty Start Date End Date Adi Bonilla DO PCP - General 08/25/10 08/24/[address] [place] [address] documented as of this encounter
--- OUTSIDE RECORDS SUMMARY | 2022-06-29 14:22 | XMS_ITS | Encounter Summary ---
:1950 Author Organization [facility] [place] [address] Care Team Providers Name Role Phone Adi Bonilla Primary Care Provider Encounter Details Date Type Department Care Team Description 05/29/2014 Hospital Encounter XRay at [facility] H/O total hip [address] [place] [address] [place] [phone] Social History Tobacco Use Types Packs/Day Years Used Date Never Smoker Smokeless Tobacco: Never Used Alcohol Use Standard Drinks/Week Comments Yes 0 (1 standard drink = 0.6 oz pure alcoho l) Sex Assigned at Date Recorded Not on file documented as of this encounter Medications at Time of Discharge Medication Sig Dispensed Refills Start Date End Date losartan-hydrochlorothiaz Take 1 tablet by 0 05/03 katerina (HYZAAR) 100-25 mg mouth daily. per tablet pravastatin (PRAVACHOL) Take 1 tablet by 0 2013 40 mg Tablet mouth daily. amlodipine (NORVASC) 5 mg Take 5 mg by mouth 0 tablet daily. albuterol (PROVENTIL Inhale 2 puffs into 0 05/27/2016 HFA;VENTOLIN HFA) 90 the lungs every 4 mcg/actuation inhaler hours as needed. Use with spacer fluticasone (FLOVENT) 110 Inhale 1 puff into 0 05/27/2016 mcg/actuation inhaler the lungs 2 times daily. sildenafil (VIAGRA) 100 100MG, PO, PRN 0 03/25/20 10 05/23/2019 mg tablet documented as of this encounter Plan of Treatment Not on filedocumented as of this encounter Procedures Procedure Name Priority Date/Time Associated Diagnosis Comme nts XR PELVIS AND Routine 05/29/2014 12:36 H/O total hip Results f or this LATERAL HIP PM EDT arthroplasty procedure are i n the results section. documented in this encounter Results XR pelvis and lateral hip (05/29/2014 12:36 PM EDT) Anatomical Region Laterality Modality Pelvis, Hip N/A Radiographic Imaging Specimen (Source) Anatomical Collection Method Collection Time Re ceived Time Location / / Volume Laterality 05/29/2014 12:36 PM EDT Narrative 05/29/2014 2:54 PM EDT Examination PELVIS+LATERAL HIP/RIGHT Clinical History 05/16/12 RIGHT CARY Comparison 10/23/2012, 05/16/2012. Technique AP pelvis, frogleg lateral right hip. Findings The patient is status post noncemented r ight total hip arthroplasty. ??No interval subsidence, periprosthetic frac ture, or new significant periprosthetic radiolucency is detected. Mild apparent lucency about the medial aspect of the acetabular cup, is unchanged. Heterotopi c ossification adjacent to the greater trochanter is unchanged. ??Mild left hip joint osteoarthropathy with small marginal osteophytes and relative preser vation of joint space again noted. Impression Unchanged appearance of the right total hip arthroplasty without interval radiographic complication seen. Procedure Note Oscar Horton MD - 05/29/2014Formatti ng of this note might be different from the original. Examination PELVIS+LATERAL HIP/RIGHT Clinical History 05/16/12 RIGHT CARY Comparison 10/23/2012, 05/16/2012. Technique AP pelvis, frogleg lateral right hip. Findings The patient is status post noncemented r ight total hip arthroplasty. No interval subsidence, periprosthetic frac ture, or new significant periprosthetic radiolucency is detected. Mild apparent lucency about the medial aspect of the acetabular cup, is unchanged. Heterotopi c ossification adjacent to the greater trochanter is unchanged. Mild left hip j oint osteoarthropathy with small marginal osteophytes and relative preser vation of joint space again noted. Impression Unchanged appearance of the right total hip arthroplasty without interval radiographic complication seen. Anthony Benitez MD IMG DX ORDERABLES documented in this encounter Visit Diagnoses Diagnosis H/O total hip arthroplasty Hip joint replacement by other means documented in this encounter Care Teams Banquet Food Server Relationship Specialty Start Date End Date Adi Bonilla DO PCP - General 08/25/10 08/24/15 [address] [place] [address] documented as of this encounter
--- OUTSIDE RECORDS SUMMARY | 2022-06-29 14:22 | XMS_ITS | Encounter Summary ---
:1950 Author Organization [facility] [place] [address] Care Team Providers Name Role Phone Adi Bonilla Primary Care Provider Encounter Details Date Type Department Care Team Description 06/15/2012 Hospital Encounter XRay at [facility] S/P hip replacement [address] [place] [address] [place] [address] Social History Tobacco Use Types Packs/Day Years Used Date Never Smoker Smokeless Tobacco: Never Used Alcohol Use Standard Drinks/Week Comments Yes 0 (1 standard drink = 0.6 oz pure alcoho l) Sex Assigned at Date Recorded Not on file documented as of this encounter Medications at Time of Discharge Medication Sig Dispensed Refills Start Date End Date losartan-hydrochlorothia Take 1 tablet by 0 05/18 zide (HYZAAR) 100-25 mg mouth daily. per tablet amlodipine (NORVASC) 5 Take 5 mg by mouth 0 mg tablet daily. atorvastatin (LIPITOR) Take 1 tablet by 30 tablet 0 012 05/22/2013 40 mg tablet mouth every evening. calcium carbonate (TUMS) Take 2 tablets by 0 05/0310/23/2012 200 mg calcium (500 mg) mouth 2 times daily chewable tablet (with meals). multivitamin Take 1 tablet by 0 05/18/20122012 Xtqd-Hz-RL-Min mouth daily. (THERAPEUTIC-M) 27-0.4 mg tablet warfarin (COUMADIN) 5 mg Take by mouth daily. 60 tablet 2 0 05/18/2012 10/23/2012 tablet Daily dose determined by INR. Goal INR 2.0-3.0. Please see discharge summary for today's dose. albuterol (PROVENTIL Inhale 2 puffs into 0 05/27/2016 HFA;VENTOLIN HFA) 90 the lungs every 4 mcg/actuation inhaler hours as needed. Use with spacer fluticasone (FLOVENT) Inhale 1 puff into 0 05/27/2016 110 mcg/actuation the lungs 2 times inhaler daily. sildenafil (VIAGRA) 100 100MG, PO, PRN 0 03/25/20 10 05/23/2019 mg tablet documented as of this encounter Plan of Treatment Not on filedocumented as of this encounter Procedures Procedure Name Priority Date/Time Associated Diagnosis Comme nts XR PELVIS AND Routine 06/15/2012 9:28 AM S/P hip replacement R esults for this LATERAL HIP EDT procedure are i n the results section. documented in this encounter Results XR pelvis and lateral hip (06/15/2012 9:28 AM EDT) Anatomical Region Laterality Modality Pelvis, Hip N/A Radiographic Imaging Specimen (Source) Anatomical Collection Method Collection Time Re ceived Time Location / / Volume Laterality 06/15/2012 9:28 AM EDT Narrative 06/15/2012 9:36 AM EDT Examination PELVIS+LATERAL HIP/RIGHT Clinical History 05/16/12 RIGHT CARY Comparison May 16, 2012. Technique AP view of the pelvis/both hips. ??Later al view of right hip. Findings Non cemented right total hip arthroplast y in stable, anatomic alignment. ??No periprosthetic lucencies. No complicatio n. Left hip joint space is well-preserved. ??Superiorly adjacent to the acetabulum a small labral calcification is seen. Procedure Note Violet Peña MD - 2011 Examination PELVIS+LATERAL HIP/RIGHT Clinical History 05/16/12 RIGHT CARY Comparison May 16, 2012. Technique AP view of the pelvis/both hips. Lateral view of right hip. Findings Non cemented right total hip arthroplast y in stable, anatomic alignment. No periprosthetic lucencies. No complicatio n. Left hip joint space is well-preserved. Superiorly adjacent to the acetabulum a small labral calcification is seen. Anthony Benitez MD IMG DX ORDERABLES documented in this encounter Visit Diagnoses Diagnosis S/P hip replacement Hip joint replacement by other means documented in this encounter Care Teams Budget And Policy Analyst Relationship Specialty Start Date End Date Adi Bonilla DO PCP - General 08/25/10 08/24/15 [address] [place] [address] documented as of this encounter
--- OUTSIDE RECORDS SUMMARY | 2022-06-29 14:22 | XMS_ITS | Encounter Summary ---
:1950 Demographics Home Phone Preferred Language Unknown Marital Status Unknown Zoroastrianism Affiliation Unknown Race Unknown Ethnic Group Unknown Author Organization [facility] Address [address] [place] [address] Care Team Providers Name Role Phone Unavailable Primary Care Provider Unavailable Encounter Details Date Type Department Care Team Description 02/24/2022 Lab Requisition [facility] Outr Resulting Lab, Pathology & Laboratory Provider [facility] [address] [place] [address] Social History Tobacco Use Types Packs/Day Years Used Date Never Assessed Sex Assigned at Date Recorded Not on file documented as of this encounter Plan of Treatment Not on filedocumented as of this encounter Procedures Procedure Name Priority Date/Time Associated Diagnosis Comme nts COVID-19 TEST [facility] Today 02/24/2022 11:35 LAB PCR EDT COVID-19 TESTING Routine 02/24/2022 11:35 Results for this EDT procedure are i n the results section. documented in this encounter Results COVID-19 TEST [facility] LAB PCR (02/24/2022 11:35 EDT) Specimen Swab Performing Organization Address City/State/ZIP Code Phon e Number [facility] [address] [place] [address] SERVICES COVID-19 TESTING (02/24/2022 11:35 EDT) COVID-19 rt-PCR Negative Negative [facility] Result Comment: [facility] This test has not been FDA c leared or approved. This test has been authorized by FDA under an EUA for use by authorized laboratories. This test has been authorized only for detection of nucleic acid fro SERVICES m 2019-nCoV, not for any oth er viruses or pathogens. This test is only authorized for the duration of the declaration that circumstances exist justifying the authorization of emergency use of in vitro d iagnostic tests for detectio n and/or diagnosis of 2019-nCoV under section 564(b)(1) of Act, 21 U.S.C ?? 360bbb-3(b) (1), unless the authorization is terminated or revoked sooner. Negative results do not prec lude 2019-nCoV infection and should not be used as the sole basis for treatment or other patient management decisions. Negative results must be combined with clinical observa tions, patient history, and epidemiological informatio n. Testing was performed using the dion SARS-CoV-2 assay ([employer] on the Dion 6800 System Performing Lab Dion 6800 [facility] Lab [facility] SERVICES Specimen Swab Performing Organization Address City/State/ZIP Code Phon e Number [facility] [address] [phone] SERVICES documented in this encounter Visit Diagnoses Not on filedocumented in this encounter
--- OUTSIDE RECORDS SUMMARY | 2022-06-29 14:22 | XMS_ITS | Encounter Summary ---
:1950 Author Organization [facility] [place] [address] Care Team Providers Name Role Phone Chad, Adi Duarte DO Primary Care Provider Encounter Details Date Type Department Care Team Description 06/01/2012 [place]Coag [place] [facility] [place] Le of Telephone Visit [facility] [place] [id number] Social History Tobacco Use Types Packs/Day Years Used Date Never Smoker Smokeless Tobacco: Never Used Alcohol Use Standard Drinks/Week Comments Yes 0 (1 standard drink = 0.6 oz pure alcoho l) Sex Assigned at Date Recorded Not on file documented as of this encounter Progress Notes Nuha Le RN - 06/01/2012 2:37 PM EDT Anticoagulation Therapy Telephone Note: Sal Chamberlain Beverly 1950 Surgeon:Emmanuel Indication: DVT Prophylaxis S/P Joint Replacement Duration of treatment: 3 months (Hx of DVT) Anticipated End Date:ends 08/16 INR:2.7 Drawn by:keturah Fields Next INR Due:06/06/12 Patient Contact Preference: Message left on answering machine E-Mail: x Spoke with patient Warfarin dose : Increased Decreased x Maintained Bleeding: Epistaxis Black tarry stools Gingival [...] Diagnosis Comme nts EXTERNAL LAB RESULTS Routine 06/01/2012 Results for this procedure are i n the results section . documented in this encounter Results (ABNORMAL) External Lab Results (06/01/2012) P athologist Signature POC INR 2.7 (A) 0.9 - 1.1 Historical Provider CHEMISTRY ORDERABLES documented in this encounter Visit Diagnoses Diagnosis Osteoarthritis of right hip Osteoarthrosis, unspecified whether gene ralized or localized, pelvic region and thigh documented in this encounter Care Teams [facility] Shift Lead Relationship Specialty Start Date End Date Adi Bonilla DO PCP - General 08/25/10 08/24/[address] [place] [address] documented as of this encounter
--- OUTSIDE RECORDS SUMMARY | 2022-06-29 14:22 | XMS_ITS | Encounter Summary ---
:1950 Author Organization [facility] [place] [address] Care Team Providers Name Role Phone ChadAdi DO Primary Care Provider Encounter Details Date Type Department Care Team Description 05/29/2012 Anti-Coag Orthopaedics at [facility] [place], Osteoarthritis of Telephone Visit [facility] [place] [phone] Social History Tobacco Use Types Packs/Day Years Used Date Never Smoker Smokeless Tobacco: Never Used Alcohol Use Standard Drinks/Week Comments Yes 0 (1 standard drink = 0.6 oz pure alcoho l) Sex Assigned at Date Recorded Not on file documented as of this encounter Progress Notes Justin Love RN - 05/29/2012 11:45 AM EDT Anticoagulation Therapy Telephone Note: Sal Cintia Beverly 1950 Surgeon:Emmanuel Indication: DVT Prophylaxis S/P Joint Replacement Duration of treatment: 3 months (Hx of DVT) Anticipated End Date:ends 08/16 INR:4.6 Drawn by:keturah Fields Next INR Due:06/01/12 No assisted physical therapy until INR is below 3.4. Patient Contact Preference: Message left on answering [...] Diagnosis Comme nts EXTERNAL LAB RESULTS Routine 05/29/2012 Results for this procedure are i n the results section . documented in this encounter Results (ABNORMAL) External Lab Results (05/29/2012) P athologist Signature POC INR 4.6 0.9 - 1.1 (External Lab) Comment: vna Historical Provider CHEMISTRY ORDERABLES documented in this encounter Visit Diagnoses Diagnosis Osteoarthritis of right hip Osteoarthrosis, unspecified whether gene ralized or localized, pelvic region and thigh documented in this encounter Care Teams Procurement Analyst Relationship Specialty Start Date End Date Adi Bonilla DO PCP - General 08/25/10 08/24/15 [address] [place] [address] documented as of this encounter
--- OUTSIDE RECORDS SUMMARY | 2022-06-29 14:22 | XMS_ITS | Encounter Summary ---
:1950 Author Organization [facility] [place] [address] Care Team Providers Name Role Phone ChadAdi sung DO Primary Care Provider Reason for Visit Reason Comments Aftercare Of Tjr right CARY Encounter Details Date Type Department Care Team Description 05/22/2013 Office Visit Orthopaedics at [facility] Philipp Armando S/P hip replacement [facility] AMY Greenberg (Primary Dx) [place] [address] [place] [address] ORTHOPAEDIC SURGERY [place], [place] [address] Social History Tobacco Use Types Packs/Day Years Used Date Never Smoker Smokeless Tobacco: Never Used Alcohol Use Standard Drinks/Week Comments Yes 0 (1 standard drink = 0.6 oz pure alcoho l) Sex Assigned at Date Recorded Not on file documented as of this encounter Last Filed Vital Signs Vital Sign Reading Time Taken Comments Blood Pressure 146/71 05/22/2013 12:55 PM EDT Pulse 74 05/22/2013 12:55 PM EDT Temperature - - Respiratory Rate - - Oxygen Saturation - - Inhaled Oxygen Concentration - - Weight 97.5 kg (215 lb) 05/22/2013 12:55 PM EDT Height 182.9 cm (6') 05/22/2013 12:55 PM EDT Body Mass Index 29.16 05/22/2013 12:55 PM EDT documented in this encounter Progress Notes Philipp Armando PA - 05/22/2013 1:35 PM EDT Patient Name: Sal Paul : 1950 MR#: [id number] Case Date: 05-16-2012 Surgeon: Soni Benitez Procedure: right total hip replacement HPI: Sal Paul is a very pleasant 63 y.o. year-old male who presents for a 1 years follow-up of the above procedure. The patient has been doing very well and his pain is markedly improved over preoperative status. No fevers, chills, nausea, vomiting, or symptoms of infection. Sal has been ambulating with no assistive device and working with a maintenance trainer. He is very pleased with his outcomeso far, he has no concerns at this time. Physical Exam: Well-appearing male in no acute distress. Alert and Oriented x 3 and answers all questions appropriately. The incision is well healed, with no signs of infection. Hip Exam: Right Rios Hip Score: Less than 30 degrees of fixed flexion: Yes Less than 10 degrees of fixed adduction: Yes less than 10 degrees of fixed int rotation in extension: Yes Limb Length discrepancy: 0cm Motion: Total degrees of Flexion:115 Total degrees of Abduction:30 Total degrees of Ext Rotation: 35 Total degrees of Adduction: 0 Gait Abnormality: Normal Pulses Palpable: Right PT: Yes Right DP:Yes Motor/Sensory: Right Distal Motor: Normal Distal Sensory: Normal Hip Abductors 4 X-RAYS: Multiple radiographic views were obtained at my request and reviewed with the patient. X-rays show a well-placed prosthesis with no evidence of fracture or loosening. ASSESSMENT/PLAN: 1 years post-op and doing well. Continue weightbearing as tolerated and working on range of motion, and we will see him back in 1 years for repeat examination. x-rays will be needed atthat time. Patient may return to normal activities as his pain and function allow. We discussed the appropriate precautions surrounding dental prophylaxis. I stressed that he should avoid elective dental procedures for the first 6 months after surgery and then call the office for a prescription prior to any further dental work for the lifetime of the joint replacement. We also discussed maintaining good foot care and giving prompt attention to any source of infection throughout thebody including foot ulcers and urinary tract infections. Signed: AMY CANNON 05/22/2013 documented in this encounter Plan of Treatment Not on filedocumented as of this encounter Visit Diagnoses Diagnosis S/P hip replacement - Primary Hip joint replacement by other means documented in this encounter Care Teams Director Recreation Center Relationship Specialty Start Date End Date Adi Bonilla DO PCP - General 08/25/10 08/24/15 [address] [place] [address] documented as of this encounter
--- OUTSIDE RECORDS SUMMARY | 2022-06-29 14:22 | XMS_ITS | Clinical Summary ---
:1950 Author Organization [facility] [place] [address] Care Team Providers Name Role Phone Polo Hernández MD Primary Care Provider Allergies No known active allergies Medications Medication Sig Dispensed Refills Start Date End Date Status amlodipine (NORVASC) Take 5 mg by mouth 0 Active 5 mg tablet daily. losartan-hydrochloro Take 1 tablet by 0 05/18/2012 Active thiazide (HYZAAR) mouth daily. 100-25 mg per tablet pravastatin Take 1 tablet by 0 02/26/2014 Active (PRAVACHOL) 40 mg mouth daily. Tablet fluticasone Inhale 1 puff into 0 Active (FLOVENT) 110 the lungs 2 times mcg/actuation HFA daily. Aerosol Inhaler amoxicillin (AMOXIL) PRN before dental 0 02/25/2016 Active 500 mg Capsule appointments atorvastatin 0 05/24/2022 Active (Lipitor) 40 mg Tablet Symbicort 160-4.5 Inhale 2 puffs into 0 04/03/2022 Active mcg/actuation HFA the lungs 2 times Aerosol Inhaler daily. metoprolol succinate 0 05/24/2022 Active XL (Toprol-XL) 25 mg Tablet Sustained Release 24 hr Active Problems Problem Noted Date History of total right hip replacement, Dr. Benitez. D OS: 05/16/2012. 05/23/2019 Elevated PSA 05/18/2012 BPH (benign prostatic hypertrophy) without obstruction 05/18/2012 Heart murmur 05/18/2012 CIRO (obstructive sleep apnea)- on CPAP in past 012 Overview: Increased O2 requirement at night, instr ucted to wear CPAP at home at night, close follow up with PCP. Elevated blood sugars- minimal 05/18/2012 Overview: Pt will have close follow up with PCP, m onitored closely throughout his hospital stay, no correction required. H/o DVT/PE following LE trauma 05/16/2012 Overview: Patient will be bridged on Lovenox until INR >2.5 and on Coumadin 3-6 months. 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 Benitez. DOS: 05/16/2012. (Kristin dorothy Dx) 05/27/2022 Hospital Encounter Radiology Emani Lancaster, Hist ory of total right hip replacement, Dr. Benitez. DOS: 05/16/2012. ; BATH HOUSE ATTENDANT Pain in right h ip 05/19/2022 Telephone Orthopaedics Emani Lancaster, Right Hip Pain (XR BATH HOUSE ATTENDANT ORDER) from Last 3 Months Immunizations Name Administration Dates Next Due Hepatitis A Vaccine, unspecified formulation 03/25/2010 Influenza Vaccine (Novel) [id number], Injectable 03/25/2010 Influenza Vaccine, Whole 08/10/2005 Tdap Vaccine 03/25/2010 Typhoid Live, Oral 03/25/2010 Yellow Fever Vaccine 03/25/2010 Social History Tobacco Use Types Packs/Day Years Used Date Never Smoker Smokeless Tobacco: Never Used Alcohol Use Standard Drinks/Week Comments Yes 0 (1 standard drink = 0.6 oz pure alcoho l) Sex Assigned at Date Recorded Not on file Last Filed Vital Signs Vital Sign Reading Time Taken Comments Blood Pressure 148/92 05/27/2022 10:14 AWARE Pt is AM EDT treating/monitor ing Pulse 69 05/23/2019 11:32 AM EDT Temperature 36.6 ??C (97.9 ??F) 06/15/2012 9:40 AM EDT Respiratory Rate 18 05/18/2012 1:20 PM EDT Oxygen Saturation 94% 05/23/2019 11:32 AM EDT Inhaled Oxygen - - Concentration Weight 86.5 kg (190 lb 9.6 05/27/2022 10:14 oz) AM EDT Height 181.6 cm (5' 11.5) 05/27/2022 10:14 AM EDT Body Mass Index 26.21 05/27/2022 10:14 AM EDT Plan of Treatment Health Maintenance Due Date Last Done Comments Covid-19 Vaccine (#1) 01/16/1955 Pneumoccocal Vaccine: 65+ (1 - PCV) 1957 Hepatitis C Screening 1969 Colonoscopy 01/16/1996 Zoster vaccine (1 of 2) 2001 Tetanus vaccine 03/25/2020 03/25/2010 Influenza (Flu) vaccine (1 of 1 - 06/03/2022 03/25/2010, Influenza standard series) Tdap adult Completed 03/25/2010 Medical Devices Implanted Type Area Dialysis Nurse Device Shelf Model / Identifier Expiration Serial / Date Lot Head,Fmrl,+6mm,11-13,36mm ([id number]) (Autoreq) - [id number] IMPLAN TS Right: DO NOT USE Depuy 07/16/2016 [id number] / Implanted: Qty: 1 on [facility]16/2012 [facility] Ortho Te - / [id number] Procedures Procedure Name Priority Date/Time Associated Diagnosis Comme nts XR PELVIS AND HIP 2 Routine 05/27/2022 9:41 AM History of tota l Results for this VIEWS RIGHT EDT right hip procedure are i n Dr. celsa the results Emmanuel. DOS: section. 05/16/2012. Pain in right hip from Last 3 Months Results XR Pelvis and Hip 2 Views Right (05/27/2022 9:41 AM EDT) Anatomical Region Laterality Modality Pelvis, Hip Right Digital Radiography Specimen (Source) Anatomical Location Collection Method / Collectio n Time Received Time / Laterality Volume Impressions 05/27/2022 10:45 AM EDT Unchanged uncomplicated right total hip arthroplasty. Thank you for letting us participate in the care of this patient. ??If you are a health care provider and have any questi ons regarding this report, please contact the number below. ??For patients who have questions please contact the health home care physical therapist that requested your imaging first. ? Narrative 05/27/2022 10:45 AM EDT EXAMINATION: XR PELVIS AND HIP 2 VIEWS RIGHT CLINICAL HISTORY: RT CARY 3 year routine follow up visit (as entered by ordering provider in the order requisition) TECHNIQUE: AP view the pelvis. AP and frog leg late ral views of the right hip. COMPARISON: Pelvis and right hip radiographs 05/23/20, 05/27/2016, 05/29/2014, 10/23/2012. FINDINGS: There is diffuse osseous demineralizatio n. There is a right total hip arthroplasty. The femoral head component is centered within the acetabular cup. No periprosth etic fracture or bone resorption. There is unchanged heterotopic ossificat ion along anterior margin of the proximal right femur. Unchanged mild right hip joint space josh rowing with subchondral sclerosis and marginal osteophyte formation. Similar appearance of advanced degenerat silverio disc disease and facet arthropathy lower lumbar spine. Procedure Note Jazmyne Mckinley MD - 05/27/2022Formattin g of this note might be different from the original. EXAMINATION: XR PELVIS AND HIP 2 VIEWS R IGHT CLINICAL HISTORY: RT CARY 3 year routine follow up visit (as entered by ordering provider in the order requisition) TECHNIQUE: AP view the pelvis. AP and frog leg late ral views of the right hip. COMPARISON: Pelvis and right hip radiographs 05/23/20, 05/27/2016, 05/29/2014, 10/23/2012. FINDINGS: There is diffuse osseous demineralizatio n. There is a right total hip arthroplasty. The femoral head component is centered within the acetabular cup. No periprosth etic fracture or bone resorption. There is unchanged heterotopic ossificat ion along anterior margin of the proximal right femur. Unchanged mild right hip joint space josh rowing with subchondral sclerosis and marginal osteophyte formation. Similar appearance of advanced degenerat silverio disc disease and facet arthropathy lower lumbar spine. IMPRESSION Unchanged uncomplicated right total hip arthroplasty. Thank you for letting us participate in the care of this patient. If you are a health care provider and have any questi ons regarding this report, please contact the number below. For patients w ho have questions please contact the health home care physical therapist that requested your imaging first. Emani Lancaster BATH HOUSE ATTENDANT IMG DX ORDERABLES from Last 3 Months Insurance Payer Benefit Plan / Subscriber ID Effective Phone Address T ype Group Dates [facility] [id number] 2018-Prese [address] [facility] [place] [address] [place] [address] MEDICARE MEDICARE PART [id number] 2017-Prese [phone] [facility] [place] [phone] [id number] [address] (Home) [place] [address] (Work) Advance Directives Documents on File Type Date Recorded Patient Continuous Yarn Dyeing Machine Operator Explanati on Advance Directives and Living 05/16/2012 1:02 PM Will Latest Code Status on File Code Status Date Activated Date Inactivated Comments Full Code 05/16/2012 10:04 AM 05/18/2012 5:53 PM Care Teams Spreading Machine Operator Relationship Specialty Start Date End Date Polo Hernández MD PCP - General Family Medicine 05/27/[address] [place] [address]
--- OUTSIDE RECORDS SUMMARY | 2022-06-29 14:22 | XMS_ITS | Encounter Summary ---
:1950 Author Organization [facility] [address] Care Team Providers Name Role Phone Adi Bonilla Primary Care Provider Encounter Details Date Type Department Care Team Description 08/22/2017 Telephone Dermatology at [facility] IrahetaKeisha MD [address] [facility] [place] [address] [address]-DERMATOLOGY [phone] [place], [place] [address] (Wo rk) Social History Tobacco Use Types Packs/Day Years Used Date Never Smoker Smokeless Tobacco: Never Used Alcohol Use Standard Drinks/Week Comments Yes 0 (1 standard drink = 0.6 oz pure alcoho l) Sex Assigned at Date Recorded Not on file documented as of this encounter Miscellaneous Notes Telephone Encounter - Kely Winkler LPN - 09/01/2017 8:27 AM EST I spoke to the pharmacy and this has been taken care of. Telephone Encounter - Cara Mayorga - 08/22/2017 11:21 AM EST Received a call from Татьяна at the [facility] for Sal Paul and they wanted to know if theycould replace the Mupirocin from a cream to ointment. This will save the patient about $300 and bestnumber to reach them back is [phone]. documented in this encounter Plan of Treatment Not on filedocumented as of this encounter Visit Diagnoses Not on filedocumented in this encounter Care Teams Supervisor Pig Machine Relationship Specialty Start Date End Date Adi Bonilla DO PCP - General Family Medicine 08/25/15 05/26/[address] [place] [address] documented as of this encounter
--- OUTSIDE RECORDS SUMMARY | 2022-06-29 14:22 | XMS_ITS | Encounter Summary ---
:1950 Demographics Home Phone Preferred Language Unknown Marital Status Unknown Caodaism Affiliation Unknown Race Unknown Ethnic Group Unknown Author Organization [facility] Address [address] [place] [address] Care Team Providers Name Role Phone Unavailable Primary Care Provider Unavailable Encounter Details Date Type Department Care Team Description 06/30/2020 Lab Requisition [facility] Outr Resulting Lab, Pathology & Laboratory Provider [facility] [address] [place], [place] [address] Social History Tobacco Use Types Packs/Day Years Used Date Never Assessed Sex Assigned at Date Recorded Not on file documented as of this encounter Plan of Treatment Not on filedocumented as of this encounter Procedures Procedure Name Priority Date/Time Associated Comments Diagnosis DO NOT ORDER Today 06/30/2020 10:44 Results for this STANDALONE - BROAD EDT procedure are in COVID TEST the results section. COVID-19 TESTING Routine 06/30/2020 10:44 Results for this EDT procedure are i n the results section. documented in this encounter Results DO NOT ORDER STANDALONE - BROAD COVID TEST (06/30/2020 10:44 EDT) COVID-19 rt-PCR NEGATIVE Negative [facility] Result Comment: LABORATORY 2019-novel Coronavirus (2019 -nCoV) not detected by the qRT-PCR assay. Consider testing for other respiratory viruses or re-collecting for 2019-nCoV testing. Note: Optimum timing for peak viral levels du ring infections caused by 20 -nCoV have not been determined. Collection of multiple specimens from the same patient may be necessary to detect the virus. Limitations Positive results are indicat silverio of active infection with SARS-CoV-2 but do not rule out bacterial infection or co-infection with other viruses. The agent detected may not be the definite cause of diseas e. In addition, detection of viral RNA may not indicate the presence of infectious virus or that SARS-CoV-2 is the causative agent for clinical symptoms. Negative results do not prec lude SARS-CoV-2 infection and should not be used as the sole basis for patient management decisions. Negative results must be combined with clinical observations, patient his tory, and epidemiological in formation. False negative results may also occur if amplification inhibitors are present in the specimen or if inadequate numbers of organisms are present in the specimen. Op timum specimen types and brando ing for peak viral levels during infections caused by SARS-CoV-2 have not been fully determined. Collection of multiple specimens (types and time points) from the same patient may be necessary to detect the virus. The test was validated for u se with upper respiratory specimens obtained via nasopharyngeal or oropharyngeal swabs in VTM, UTM, M4, M5, M6, saline, and MTM media. The performance of this test has not be en established for other spe cimens. Specimens collected using other FDA recommended Specimen Collection Materials listed in the FDA COVID-19 Diagnostic Technologies communication (December 27, 2019) are pr ocessed with the caveat that they were not all validated for use with this test and the result must be interpreted in this context. Furthermore, a false negative results may occur if a specimen is improperly collected, transported or handled. If the virus mutates in the RT-PCR target region, SARS-CoV-2 may not be detected or may be detected less predictably. Inhibitors or other types of interference may produce a false negative result. An interference study evaluating the effect of common cold medications was not performed. This test is not FDA-cleared but its performance characteristics were established by our CLIA-certified, CAP-accredited, high complexity laboratory in accordance with CLIA regulations, College of [employer] an Pathologists (CAP) guidel kris (Dec 20, 2019), and FDA guidance (Dec 01, 2019). This test is only for use un tony the Food and Drug Administration's Emergency Use Authorization. Specimen Swab - Entire nasopharynx (body structur e) Performing Organization Address City/State/ZIP Code Phon e Number [facility] [place], [place] COVID-19 TESTING (06/30/2020 10:44 EDT) COVID-19 rt-PCR NEGATIVE Negative [facility] Result Comment: LABORATORY 2019-novel Coronavirus (2019 -nCoV) not detected by the qRT-PCR assay. Consider testing for other respiratory viruses or re-collecting for 2019-nCoV testing. Note: Optimum timing for peak viral levels du ring infections caused by 20 19-nCoV have not been determined. Collection of multiple specimens from the same patient may be necessary to detect the virus. Limitations Positive results are indicat silverio of active infection with SARS-CoV-2 but do not rule out bacterial infection or co-infection with other viruses. The agent detected may not be the definite cause of diseas e. In addition, detection of viral RNA may not indicate the presence of infectious virus or that SARS-CoV-2 is the causative agent for clinical symptoms. Negative results do not prec lude SARS-CoV-2 infection and should not be used as the sole basis for patient management decisions. Negative results must be combined with clinical observations, patient his tory, and epidemiological in formation. False negative results may also occur if amplification inhibitors are present in the specimen or if inadequate numbers of organisms are present in the specimen. Op timum specimen types and brando ing for peak viral levels during infections caused by SARS-CoV-2 have not been fully determined. Collection of multiple specimens (types and time points) from the same patient may be necessary to detect the virus. The test was validated for u se with upper respiratory specimens obtained via nasopharyngeal or oropharyngeal swabs in VTM, UTM, M4, M5, M6, saline, and MTM media. The performance of this test has not be en established for other spe cimens. Specimens collected using other FDA recommended Specimen Collection Materials listed in the FDA COVID-19 [employer] communication (December 27, 2019) are pr ocessed with the caveat that they were not all validated for use with this test and the result must be interpreted in this context. Furthermore, a false negative results may occur if a specimen is improperly collected, transported or handled. If the virus mutates in the RT-PCR target region, SARS-CoV-2 may not be detected or may be detected less predictably. Inhibitors or other types of interference may produce a false negative result. An interference study evaluating the effect of common cold medications was not performed. This test is not FDA-cleared but its performance characteristics were established by our CLIA-certified, CAP-accredited, high complexity laboratory in accordance with CLIA regulations, College of [employer] an Pathologists (CAP) guidel kris (Dec 20, 2019), and FDA guidance (Dec 01, 2019). This test is only for use un tony the Food and Drug Administration's Emergency Use Authorization. Performing Lab [facility] LABORATORY SERVICES Specimen Swab Performing Organization Address City/State/ZIP Code Phon e Number [facility] [address] [place] [address] SERVICES [facility] [place], [place] documented in this encounter Visit Diagnoses Not on filedocumented in this encounter
--- OUTSIDE RECORDS SUMMARY | 2022-06-29 14:22 | XMS_ITS | Encounter Summary ---
:1950 Author Organization [facility] [place] [address] Care Team Providers Name Role Phone Adi Bonilla DO Primary Care Provider Encounter Details Date Type Department Care Team Description 08/30/2017 Telephone Plastic Surgery at [facility] [place] [address] Social History Tobacco Use Types Packs/Day Years Used Date Never Smoker Smokeless Tobacco: Never Used Alcohol Use Standard Drinks/Week Comments Yes 0 (1 standard drink = 0.6 oz pure alcoho l) Sex Assigned at Date Recorded Not on file documented as of this encounter Miscellaneous Notes Telephone Encounter - Palak Robertson - 08/30/2017 9:02 AM EST Telephone call with patient documented in this encounter Plan of Treatment Not on filedocumented as of this encounter Visit Diagnoses Not on filedocumented in this encounter Care Teams Process Worker Relationship Specialty Start Date End Date Adi Bonilla DO PCP - General Family Medicine 08/25/15 05/26/[address] [place] [address] documented as of this encounter
--- OUTSIDE RECORDS SUMMARY | 2022-06-29 14:22 | XMS_ITS | Encounter Summary ---
:1950 Author Organization [place] [address] Care Team Providers Name Role Phone Adi Bonilla DO Primary Care Provider Encounter Details Date Type Department Care Team Description 05/18/2012 Orders Only Orthopaedics at [facility] Anthony Benitez, S/P hip replacement [facility] [place] [address] [facility] [phone] ORTHOPAEDIC SURGERY [place], [place] [address] Social History Tobacco Use Types Packs/Day Years Used Date Never Smoker Smokeless Tobacco: Never Used Alcohol Use Standard Drinks/Week Comments Yes 0 (1 standard drink = 0.6 oz pure alcoho l) Sex Assigned at Date Recorded Not on file documented as of this encounter Plan of Treatment Not on filedocumented as of this encounter Results XR pelvis and lateral [...] replacement Hip joint replacement by other means S/P hip replacement Hip joint replacement by other means documented in this encounter Care Teams Afternoon Babysitter Relationship Specialty Start Date End Date Adi Bonilla DO PCP - General 08/25/10 08/24/15 [address] [place] [address] documented as of this encounter
--- OUTSIDE RECORDS SUMMARY | 2022-06-29 14:22 | XMS_ITS | Encounter Summary ---
:1950 Author Organization [facility] [place] [address] Care Team Providers Name Role Phone ChadAdi sung Primary Care Provider Encounter Details Date Type Department Care Team Description 05/23/2019 Hospital Encounter XRay at [facility] Emani Lancaster Hx of total hip [address] [place] [address] Dr Chamberlain, CALL CENTER SPECIALIST arthroplasty, right [facility] [address] [place] [phone] [place] [address] Social History Tobacco Use Types Packs/Day Years Used Date Never Smoker Smokeless Tobacco: Never Used Alcohol Use Standard Drinks/Week Comments Yes 0 (1 standard drink = 0.6 oz pure alcoho l) Sex Assigned at Date Recorded Not on file documented as of this encounter Medications at Time of Discharge Medication Sig Dispensed Refills Start Date End Date amoxicillin (AMOXIL) PRN before dental 0 02/25/20 16 500 mg Capsule appointments losartan-hydrochlorothi Take 1 tablet by mouth 0 05/18/2012 azide (HYZAAR) 100-25 daily. mg per tablet fluticasone (FLOVENT) Inhale 1 puff into the 0 110 mcg/actuation HFA lungs 2 times daily. Aerosol Inhaler pravastatin (PRAVACHOL) Take 1 tablet by mouth 0 02/26/2014 40 mg Tablet daily. amlodipine (NORVASC) 5 Take 5 mg by mouth 0 mg tablet daily. documented as of this encounter Plan of Treatment Not on filedocumented as of this encounter Procedures Procedure Name Priority Date/Time Associated Diagnosis Comme nts XR PELVIS AND HIP 2 Routine 05/23/2019 10:37 AM Hx of total hi p Results for this VIEWS RIGHT EDT arthroplasty, right procedur e are in the results section. documented in this encounter Results XR Pelvis and Hip 2 Views Right (05/23/2019 10:37 AM EDT) Anatomical Region Laterality Modality Pelvis, Hip Right Digital Radiography Specimen (Source) Anatomical Location Collection Method / Collectio n Time Received Time / Laterality Volume Impressions 05/23/2019 2:23 PM EDT Right total hip arthroplasty. No acute change. Thank you for letting us participate in the care of this patient. For questions regarding this report, please contact e number below. ? Narrative 05/23/2019 2:23 PM EDT EXAMINATION: XR PELVIS AND HIP 2 VIEWS RIGHT CLINICAL HISTORY: Hx of total hip arthro plasty, right TECHNIQUE: AP pelvis with AP and lateral views of t he right hip COMPARISON: A 20/02/2016 FINDINGS: A right total hip arthroplasty is in jay ce. No acute change or complication is seen. Degenerative disc disease present lower lumbar spine. Procedure Note Philipp Goldstein MD - 05/23/2019Forma tting of this note might be different from the original. EXAMINATION: XR PELVIS AND HIP 2 VIEWS R IGHT CLINICAL HISTORY: Hx of total hip arthro plasty, right TECHNIQUE: AP pelvis with AP and lateral views of t he right hip COMPARISON: A 20/02/2016 FINDINGS: A right total hip arthroplasty is in jay ce. No acute change or complication is seen. Degenerative disc disease present lower lumbar spine. IMPRESSION Right total hip arthroplasty. No acute c hange. Thank you for letting us participate in the care of this patient. For questions regarding this report, please contact e number below. Emani Lancaster APRN IMG DX ORDERABLES documented in this encounter Visit Diagnoses Diagnosis Hx of total hip arthroplasty, right documented in this encounter Care Teams Peace Officer Relationship Specialty Start Date End Date Adi Bonilla DO PCP - General Family Medicine 08/25/15 05/26/22 [address] [place] [address] documented as of this encounter
--- OUTSIDE RECORDS SUMMARY | 2022-06-29 14:22 | XMS_ITS | Encounter Summary ---
:1950 Author Organization [facility] [place] [address] Care Team Providers Name Role Phone ChadAdi sung Primary Care Provider Encounter Details Date Type Department Care Team Description 05/23/2012 Anti-Coag [place] [facility] [place]i Saldivar Osteoarthritis of Telephone Visit [facility] [place] [phone] Social History Tobacco Use Types Packs/Day Years Used Date Never Smoker Smokeless Tobacco: Never Used Alcohol Use Standard Drinks/Week Comments Yes 0 (1 standard drink = 0.6 oz pure alcoho l) Sex Assigned at Date Recorded Not on file documented as of this encounter Progress Notes Emani Saldivar RN - 05/23/2012 4:58 PM EDT Anticoagulation Therapy Telephone Note: Indication: DVT Prophylaxis S/P Joint Replacement Duration of treatment: 3 months (Hx of DVT) Anticipated End Date:ends 08/16 INR:4.4 Hold pt tonight and tomorrow Drawn by:vna Next INR Due: Patient Contact Preference: Message left on answering [...] Diagnosis Comme nts EXTERNAL LAB RESULTS Routine 05/23/2012 Results for this procedure are i n the results section . documented in this encounter Results (ABNORMAL) External Lab Results (05/23/2012) P athologist Signature POC INR 4.4 0.9 - 1.1 (External Lab) Specimen (Source) Anatomical Location Collection Method / Collectio n Time Received Time / Laterality Volume 05/23/2012 Historical Provider CHEMISTRY ORDERABLES documented in this encounter Visit Diagnoses Diagnosis Osteoarthritis of right hip Osteoarthrosis, unspecified whether gene ralized or localized, pelvic region and thigh documented in this encounter Care Teams Marshmallow Machine Worker Relationship Specialty Start Date End Date Adi Bonilla DO PCP - General 08/25/10 08/24/15 [address] [place] [address] documented as of this encounter
--- OUTSIDE RECORDS SUMMARY | 2022-06-29 14:22 | XMS_ITS | Encounter Summary ---
:1950 Author Organization [facility] Address [address] [place] [address] Care Team Providers Name Role Phone Polo Hernández MD Primary Care Provider [phone] Reason for Visit Reason Comments Follow-up RT CARY 05/16/12 Encounter Details Date Type Department Care Team Description 05/27/2022 Office Visit Orthopaedics at [facility] Emani Lancaster, History of total [facility] COPIER OPERATOR right hip [address] [facility] replacement, [place] [address] Benitez. DOS: [phone] ORTHOPAEDIC 05/16/2012. ([facility] Dx) [place], [place] [address] Social History Tobacco Use Types [...] Pt is AM EDT treating/monitor ing Pulse - - Temperature - - Respiratory Rate - - Oxygen Saturation - - Inhaled Oxygen - - Concentration Weight 86.5 kg (190 lb 9.6 05/27/2022 10:14 oz) AM EDT Height 181.6 cm (5' 11.5) 05/27/2022 10:14 AM EDT Body Mass Index 26.21 05/27/2022 10:14 AM EDT documented in this encounter Progress Notes TonnyEmani Cintia, COPIER OPERATOR - 05/27/2022 10:40 AM EDT Arthroplasty/Orthopaedic History: 1. Right hip CARY DOS: 05/16/2012. Dr. Benitez. Chief Complaint : 10 years/routine rotary f/u for above HPI: Sal Paul is a very pleasant 72 y.o. year-old male and is now 10 years status post right total hip replacement. The patient has been doing well. The patient is not having any pain. No fevers, chills, nausea, vomiting, or symptoms of infection. Sal has been ambulating with no assistive deviceand remains active. He had a recent RI while golfing in [place] with reported CABG surgery and is doing well in that regard. He has lost some weight. He does have some left sided ITB issues working with PT. He is not taking pain medicine on a regular basis. No interval falls or injuries. Patient's medications, allergies, past medical, surgical, social and family histories were reviewed and updated as appropriate. ROS: Denies: fever, chills, night sweats, nausea, or vomiting BP (!) 148/92 Comment: MD AWARE Pt is treating/monitoring Ht 181.6 cm (5' 11.5) Wt 86.5 kg (190 lb 9.6 oz) BMI 26.21 kg/m?? Physical Exam: Well-appearing male in no acute distress. Alert and Oriented x 3 and answers all questions appropriately. Hip Exam: Right Leg length: Longer leg: left Limb Length discrepancy: a few mm's. Chronic obligatory ER of the right hip. Motion: Flexion contracture: 0 Total degrees of Flexion:115 Total degrees of Abduction:30 Total degrees of Ext Rotation: 30 Total degrees of Internal Rotation: 15 Gait Abnormality: Normal Pulses Palpable: Right PT: Yes Right DP:Yes Motor/Sensory: Right Distal Motor: Normal Distal Sensory: Normal Hip Abductors 5 Trendelenburg test: negative X-RAYS: Multiple radiographic views were obtained at my request and reviewed with the patient. X-rays show a well-placed prosthesis with no evidence of fracture, subsidence, loosening, or periprosthetic complication. Questionnaire Responses:NONE ASSESSMENT/PLAN: Mr. Paul is a 72 y.o. year old male status post right total hip replacement. He continues to do well at 10 years post op. Activity precautions to prevent premature implant failure and joint specific exercises reviewed. We will see him back in 5 years for repeat examination. X-rays will be needed at that time. Patient may continue with normal activities as his pain and function allow. Pt agrees, questions solicited/answered, will return as scheduled and as needed for concerns or questions. Pt understands they may also call us prn for above. We discussed the appropriate precautions surrounding dental prophylaxis; according to the AAOS Appropriate Use Criteria we do not recommend antibiotic use prior to dental procedures for Sal. Recommended antibiotic: N/A. He does request a letter for his dentist regarding the current AAOS guidelines. LETTER in [facility]. If Sal has any changes in health status we recommend he contact our office prior to dental procedures for updated recommendations Should maintain good foot care and giving prompt attention to any source of infection throughout thebody including foot ulcers and urinary tract infections. All questions were answered. Signed: EMANI LANCASTER APRN 05/27/2022 documented in this encounter Plan of Treatment Not on filedocumented as of this encounter Visit Diagnoses Diagnosis History of total right hip replacement, Dr. Benitez. DOS: 05/16/2012. - Primary documented in this encounter Care Teams Plate Mill Hand Relationship Specialty Start Date End Date Polo Hernández MD PCP - General Family Medicine 05/27/[address] [place] [address] [address] [place] [address] documented as of this encounter
--- OUTSIDE RECORDS SUMMARY | 2022-06-29 14:22 | XMS_ITS | Encounter Summary ---
:1950 Author Organization [facility] [place] [address] Care Team Providers Name Role Phone Chad, Adi Duarte DO Primary Care Provider Encounter Details Date Type Department Care Team Description 06/12/2012 Anti-Coag Orthopaedics at [facility] Bianca Jama Osteoarthritis of right hip; Telephone Visit [facility] GUILLAUME Patel [place] [id number] Social History Tobacco Use Types Packs/Day Years Used Date Never Smoker Smokeless Tobacco: Never Used Alcohol Use Standard Drinks/Week Comments Yes 0 (1 standard drink = 0.6 oz pure alcoho l) Sex Assigned at Date Recorded Not on file documented as of this encounter Progress Notes Bianca Jama RN - 06/12/2012 3:03 PM EDT Anticoagulation Therapy Telephone Note: Sal [...] Associated Diagnosis Comme nts POCT INR Routine 06/12/2012 Results for thi s procedure are in the resu lts section. documented in this encounter Results (ABNORMAL) Prothrombin Time (06/15/2012 8:57 AM EDT) athologist Signature PT 26.5 (H) 11.9 - 14.7 [facility] [employer] Comment: [facility] Transfusion Committee Guidelines: I NR less than 2.0, PTT less than OR equal to 43.5 seconds, or Fibrinogen gre ater than or equal to 100 mg/dl indicate adequate procoagulant activity for hemostasis in patients without underlying bleeding disorders. INR 2.4 (H) 0.9 - 1.1 [employer] Specimen Anatomical Collection Method Collection Time Receive d Time (Source) Location / / Volume Laterality Blood specimen 06/15/2012 8:57 AM 012 9:11 (specimen) EDT AM EDT Resulting Agency Comment Spec In Lab Anthony Benitez MD HEMATOLOGY ORDERABLES Performing Organization Address City/State/[place] [address] [employer] (ABNORMAL) POCT INR (06/12/2012) athologist Signature POC INR 3.0 0.9 - 1.1 (External Lab) Comment: [facility] Historical Provider POINT OF CARE TEST ORDERABLE S documented in this encounter Visit Diagnoses Diagnosis Osteoarthritis of right hip Osteoarthrosis, unspecified whether gene ralized or localized, pelvic region and thigh Anticoagulated on Coumadin Encounter for therapeutic drug monitorin g documented in this encounter Care Teams Core Loader Relationship Specialty Start Date End Date Adi Bonilla DO PCP - General 08/25/10 08/24/15 [address] [place] [address] documented as of this encounter
--- OUTSIDE RECORDS SUMMARY | 2022-06-29 14:22 | XMS_ITS | Encounter Summary ---
:1950 Author Organization [facility] [place] [address] Care Team Providers Name Role Phone Chad, Adi RUSSELL Primary Care Provider Reason for Visit Reason Comments Aftercare Of Tjr R CARY 05/16/12 Encounter Details Date Type Department Care Team Description 05/27/2016 [place] [facility] [place] Benitez H/O total hip [facility] MD Amanda arthroplasty, [place] [address] [place] [address] ORTHOPAEDIC SURGERY [place], [place] [address] Social History Tobacco Use Types Packs/Day Years Used Date Never Smoker Smokeless Tobacco: Never Used Alcohol Use Standard Drinks/Week Comments Yes 0 (1 standard drink = 0.6 oz pure alcoho l) Sex Assigned at Date Recorded Not on file documented as of this encounter Last Filed Vital Signs Vital Sign Reading Time Taken Comments Blood Pressure 148/77 05/27/2016 10:56 AM EDT Pulse 66 05/27/2016 10:56 AM EDT Temperature - - Respiratory Rate - - Oxygen Saturation - - Inhaled Oxygen Concentration - - Weight 93 kg (205 lb) 05/27/2016 10:56 AM EDT verbal Height 182.9 cm (6') 05/27/2016 10:56 AM EDT verbal Body Mass Index 27.8 05/27/2016 10:56 AM EDT documented in this encounter Progress Notes Anthony Benitez - 05/27/2016 11:00 AM EDT Mr. Paul is a 66-year-old gentleman who is now 4 years status post a right total hip replacement, ceramic on high density polyethylene on cemented SROM with a pinnacle. He is doing very well. On a rare occasion, he will have a little stiffness but that dissipates. 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 In any event, as far as his hip, he is delighted with it and he has been walking more at the instigation of his who is 12 years status post a right total hip replacement and a much more fit lady. On his physical exam while seated, I can bring his hip through a satisfactory range of motion without either pain or apprehension and his gait is perfectly normal. His x-rays continue to show satisfactory position of the implant. Nothing to suggest stress shielding, implant failure, loosening or malposition. The contralateral hip is free of any significant disease. ASSESSMENT: A very satisfactory course. Again, admonitions about good foot care and dental prophylaxis were emphasized but I think under the circumstances, we will bring him back in 3 years' time for followup with films or earlier p.r.n. cc: Dr. Adi Bonilla documented in this encounter Plan of Treatment Not on filedocumented as of this encounter Visit Diagnoses Diagnosis H/O total hip arthroplasty, right documented in this encounter Care Teams Tap And Die Maker Technician Relationship Specialty Start Date End Date Adi Bonilla DO PCP - General Family Medicine 08/25/15 05/26/[address] [place] [address] documented as of this encounter
--- OUTSIDE RECORDS SUMMARY | 2022-06-29 14:22 | XMS_ITS | Encounter Summary ---
:1950 Author Organization [place] [address] Care Team Providers Name Role Phone Adi Bonilla DO Primary Care Provider Encounter Details Date Type Department Care Team Description 06/08/2012 Anti-Coag Orthopaedics at [facility] [place], Osteoarthritis of Telephone Visit [facility] [place] [phone] Social History Tobacco Use Types Packs/Day Years Used Date Never Smoker Smokeless Tobacco: Never Used Alcohol Use Standard Drinks/Week Comments Yes 0 (1 standard drink = 0.6 oz pure alcoho l) Sex Assigned at Date Recorded Not on file documented as of this encounter Progress Notes Justin Love RN - 06/08/2012 11:57 AM EDT Anticoagulation Therapy Telephone Note: Sal Paul 1950 Surgeon:Emmanuel Indication: DVT Prophylaxis S/P Joint Replacement Duration of treatment: 3 months (Hx of DVT) Anticipated End Date:ends 08/16 INR:2.4 Drawn by:keturah Fields Next INR Due:06/12/12 Patient Contact Preference: Message left on answering [...] Diagnosis Comme nts EXTERNAL LAB RESULTS Routine 06/08/2012 Results for this procedure are i n the results section . documented in this encounter Results (ABNORMAL) External Lab Results (06/08/2012) P athologist Signature POC INR 2.4 0.9 - 1.1 (External Lab) Comment: [facility] Historical Provider CHEMISTRY ORDERABLES documented in this encounter Visit Diagnoses Diagnosis Osteoarthritis of right hip Osteoarthrosis, unspecified whether gene ralized or localized, pelvic region and thigh documented in this encounter Care Teams Hand Engraver Relationship Specialty Start Date End Date Adi Bonilla DO PCP - General 08/25/10 08/24/[address] [place] [address] documented as of this encounter
--- OUTSIDE RECORDS SUMMARY | 2022-06-29 14:22 | XMS_ITS | Encounter Summary ---
:1950 Author Organization [facility] [place] [address] Care Team Providers Name Role Phone Polo Hernández MD Primary Care Provider [phone] Encounter Details Date Type Department Care Team Description 05/27/2022 Hospital Encounter XRay at [facility] Emani Lancaster History of total right hip r eplacement, Dr. Benitez. DOS: 05/16/2012. ; [address] [facility] [facility] [address] Cintia APRN Pain in right hip [facility] [id number] [place] [phone] [place] [address] Social History Tobacco Use Types Packs/Day Years Used Date Never Smoker Smokeless Tobacco: Never Used Alcohol Use Standard Drinks/Week Comments Yes 0 (1 standard drink = 0.6 oz pure alcoho l) Sex Assigned at Date Recorded Not on file documented as of this encounter Medications at Time of Discharge Medication Sig Dispensed Refills Start Date End Date atorvastatin (Lipitor) 0 05/24/2022 40 mg Tablet Symbicort 160-4.5 Inhale 2 puffs into the 0 04/03 mcg/actuation HFA lungs 2 times daily. Aerosol Inhaler metoprolol succinate XL 0 05/24/2022 (Toprol-XL) 25 mg Tablet Sustained Release 24 hr amoxicillin (AMOXIL) 500 PRN before dental 0 02/01 mg Capsule appointments losartan-hydrochlorothia Take 1 tablet by mouth 0 05/18/2012 zide (HYZAAR) 100-25 mg daily. per tablet fluticasone (FLOVENT) Inhale 1 puff [...] EDT right hip procedure are i n replacement, the results Emmanuel. DOS: section. 05/16/2012. Pain in right hip documented in this encounter Results XR Pelvis [...] who have questions please contact the health nurse wound care that requested your imaging first. ? Narrative [...] ho have questions please contact the health nurse wound care that requested your imaging first. Emani Lancaster ICT SUPPORT AND TEST ENGINEERS IMG DX ORDERABLES documented in this encounter Visit Diagnoses Diagnosis History of total right hip replacement, Dr. Benitez. DOS: 05/16/2012. Pain in right hip Pain in joint, pelvic region and thigh documented in this encounter Care Teams Awning Craftsman Relationship Specialty Start Date End Date Polo Hernández MD PCP - General Family Medicine 05/27/[address] [place] [address] documented as of this encounter
--- OUTSIDE RECORDS SUMMARY | 2022-06-29 14:22 | XMS_ITS | Encounter Summary ---
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 [address] Benitez. DOS: [phone] ORTHOPAEDIC 05/16/2012. SURGERY [place], [place] [address] Social History Tobacco Use Types Packs/Day Years Used Date Never Smoker Smokeless Tobacco: Never Used Alcohol Use Standard Drinks/Week Comments Yes 0 (1 standard drink = 0.6 oz pure alcoho l) Sex Assigned at Date Recorded Not on file documented as of this encounter Last Filed Vital Signs Vital Sign Reading Time Taken Comments Blood Pressure 120/60 05/23/2019 11:32 AM EDT Pulse 69 05/23/2019 11:32 AM EDT Temperature - - Respiratory Rate - - Oxygen Saturation 94% 05/23/2019 11:32 AM EDT Inhaled Oxygen Concentration - - Weight 99.8 kg (220 lb) 05/23/2019 11:32 AM EDT Height 182.9 cm (6') 05/23/2019 11:32 AM EDT Body Mass Index 29.84 05/23/2019 11:32 AM EDT documented in this encounter Progress Notes Emani Lancaster, [employer] - 05/23/2019 11:40 AM EDT Arthroplasty/Orthopaedic History: 1. Right hip CARY DOS: 05/16/2012. Dr. Benitez. Chief Complaint: Routine rotary f/u for right hip CARY HPI: Sal Paul is a very pleasant 69 y.o. year-old male and is now 7 years post right total hip replacement. The patient has been doing very well. The patient is not having any pain. He does noticea small LLD on the right being short and some chronic outward rotation of the right foot not interfering with his lifestyle. No night sweats. No fevers, chills, nausea, vomiting, or symptoms of infection. Sal has been ambulating with no assistive device and working with PT for his LEFT shoulder. He is not taking pain medicine for his hip. Patient's medications, allergies, past medical, surgical, social and family histories were reviewed and updated as appropriate. ROS: Denies: fever, chills, night sweats, nausea, or vomiting BP 120/60 (BP Location (NBP): Left arm, Patient Position: Sitting, BP Cuff Sizes: Adult (25-34 cm)) Pulse 69 Ht 182.9 cm (6') Wt 99.8 kg (220 lb) SpO2 94% BMI 29.84 kg/m?? Physical Exam: Well-appearing male in no acute distress. Alert and Oriented x 3 and answers all questions appropriately. The incision is reportedly well healed, with no signs of infection. Hip Exam: Right, There is mild obligatory ER of the right hip and a tight ITB. No pain with palpation. No GTB pain. No pain with IR/ER. SLR capability is strong. EHL/FHL 5/5. Negative nerve root tension sign. Leg length: Longer leg: left Limb Length discrepancy: A few mm's Motion: Flexion contracture: 0 Total degrees of Flexion:115 Total degrees of Abduction:30 Total degrees of Ext Rotation: 30 Total degrees of Internal Rotation: 15 Gait Abnormality: Normal Pulses Palpable: Right PT: Yes Motor/Sensory: Right Distal Motor: Normal Distal Sensory: Normal Hip Abductors 5 Trendelenburg test: negative X-RAYS: Multiple radiographic views were obtained at my request and reviewed with the patient. X-rays show a well-placed prosthesis with no evidence of fracture, subsidence, loosening, or periprosthetic complication. 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 Questionnaire Responses: [facility] Surgical Postop Visit 05/23/2019 PROMIS-10 General Health Very Good PROMIS-10 Quality of Life Very Good PROMIS-10 Physical Health Very Good PROMIS-10 Mental Health Very Good PROMIS-10 Social Activity Very Good PROMIS-10 Everyday Activities Mostly PROMIS-10 Pain 0 -No Pain PROMIS-10 Fatigue Mild PROMIS-10 Social Roles Very Good PROMIS-10 Anxious or Depressed Never PROMIS PHYSICAL HEALTH SCORE 54.1 PROMIS MENTAL HEALTH SCORE 56 HOOS JR Scores 100 Problems with surgical incision/wound after surgery No Gone to ER since knee surgery No Admitted to hospital since recent ortho surgery No Additional surgery on same body part No CARY Grade 9 Pain in other HIP None Back pain at this moment Very mild Satisfaction with Treatment Satisfied Choose Same Treatment Again Definitely yes [facility] Response 05/23/2019 HOOS JR Scores 100 Spine [facility] Response 05/23/2019 HOOS JR Scores 100 ASSESSMENT/PLAN: Mr. Paul is a 69 y.o. year old male status post right total hip replacement ~ 7 years ago. Overall, doing very well. He continues to feel better than before his surgery. Activity precautions to prevent premature implant failure and joint specific exercises reviewed. I reviewed some hip abductor strengthening and ITB stretching exercises that may help with his overall feeling of ER of his foot and stress on his ITB. We will see him back in 3 years for repeat examination. X-rays will be needed at that time. Patient may continue with normal activities as his pain and function allow. We discussed the appropriate precautions surrounding dental prophylaxis; according to the AAOS Appropriate Use Criteria we do not recommend antibiotic use prior to dental procedures for Sal. However, His Dentist does recommend antibiotic use. Therefore, Recommended antibiotic: Amoxicillin (50mg/kg, maximum 2 gm) 1 hour prior to dental work; dose: 2000 mg If Sal has any changes in health status we recommend he contact our office prior to dental procedures for updated recommendations We also discussed maintaining good foot care and giving prompt attention to any source of infection throughout the body including foot ulcers and urinary tract infections. All questions were answered. Signed: EMANI LANCASTER APRN 05/23/2019 documented in this encounter Plan of Treatment Not on filedocumented as of this encounter Visit Diagnoses Diagnosis History of total right hip replacement, Dr. Benitez. DOS: 05/16/2012. documented in this encounter Care Teams Chair And Couch Maker Relationship Specialty Start Date End Date Adi Bonilla DO PCP - General Family Medicine 08/25/15 05/26/22 [facility] [address] [place] [address] documented as of this encounter
--- OUTSIDE RECORDS SUMMARY | 2022-06-29 14:23 | XMS_ITS | Encounter Summary ---
:1950 [place] [address] Care Team Providers Name Role Phone Adi Bonilla DO Primary Care Provider Encounter Details Date Type Department Care Team Description 05/08/2012 Hospital Encounter Laboratory Damon Hobson ([facility] MD Amanda joint disease) of [place], [place] CENTER [address] ORTHOPAEDIC [phone] [place] [address] Social History Tobacco Use Types Packs/Day Years Used Date Never Smoker Smokeless Tobacco: Never Used Alcohol Use Standard Drinks/Week Comments Yes 0 (1 standard drink = 0.6 oz pure alcoho l) Sex Assigned at Date Recorded Not on file documented as of this encounter Medications at Time of Discharge Medication Sig Dispensed Refills Start Date End Date losartan-hydrochlorot Take 1 tablet by 0 05/18/20 12 hiazide (HYZAAR) mouth daily. 100-25 mg per tablet amlodipine (NORVASC) Take 5 mg by mouth 0 5 mg tablet daily. acetaminophen Take 2 tablets by 42 tablet 0 05/18/201205/04 (TYLENOL) 500 mg mouth every 8 hours tablet for 7 days. After 7 days, may take Tylenol every 8 hours as needed for mild pain. atorvastatin Take 1 tablet by 30 tablet 0 05/18/20122012 (LIPITOR) 40 mg mouth every evening. tablet bisacodyl (DULCOLAX) Place 1 suppository 3 suppository 0 06/15/2012 10 mg suppository rectally daily as needed (constipation or if no BM in 48 hours). calcium carbonate Take 2 tablets by 0 05/18/2012 10/23/2012 (TUMS) 200 mg calcium mouth 2 times daily (500 mg) chewable (with meals). tablet enoxaparin (LOVENOX) Inject 0.4 mLs 3 Syringe 3 05/18/2012 06/15/2012 40 mg/0.4 mL Syrg subcutaneously. Give injection 1 injection daily until INR (Coumadin level) is greater than 2.5. Then continue on Coumadin only. multivitamin Take 1 tablet by 0 05/18/20122012 Rexz-Bz-YN-Min mouth daily. (THERAPEUTIC-M) 27-0.4 mg tablet OXYcodone Take 1-3 tablets by 100 tablet 0 05/18/201205/18 (ROXICODONE) 5 mg mouth every 6 hours immediate release as needed for Pain. tablet As your pain improves, it is VERY important to decrease your dose of Oxycodone and space your doses further apart. polyethylene glycol Take 17 g by mouth 10 each 0 05/18/20 12 06/15/2012 (MIRALAX) 17 gram daily. Continue packet daily until having regular bowel movements, then use as needed for constipation or if no BM in 48 hours. senna-docusate Take 1-4 tablets by 60 tablet 3 05/18/2012 0 06/15/2012 (PERICOLACE) 8.6-50 mouth 2 times daily. mg per tablet warfarin (COUMADIN) 5 Take by mouth daily. 60 tablet 2 05/0310/23/2012 mg tablet Daily dose determined by INR. Goal INR 2.0-3.0. Please see discharge summary for today's dose. OXYcodone Take 1-2 tablets by 100 tablet 0 05/18/201206/15 (ROXICODONE) 5 mg mouth every 4 hours immediate release as needed for Pain. tablet As your pain improves, it is VERY important to decrease your dose of Oxycodone and space your doses further apart. mupirocin (BACTROBAN) Apply topically 2 0 05/18/2012 2 % ointment times daily. As directed albuterol (PROVENTIL Inhale 2 puffs into 0 05/27/2016 HFA;VENTOLIN HFA) 90 the lungs every 4 mcg/actuation inhaler hours as needed. Use with spacer fluticasone (FLOVENT) Inhale 1 puff into 0 05/27/2016 110 mcg/actuation the lungs 2 times inhaler daily. atorvastatin 0 03/25/2010 05/18/2012 (LIPITOR) 40 mg tablet losartan-hydrochlorot 1 Tablet(s), PO, 0 03/25/20 10 05/18/2012 hiazide (HYZAAR) Once daily 100-25 mg per tablet sildenafil (VIAGRA) 100MG, PO, PRN 0 03/25/2010 0 05/23/2019 100 mg tablet documented as of this encounter Plan of Treatment Not on filedocumented as of this encounter Procedures Procedure Name Priority Date/Time Associated Comments Diagnosis DIFFERENTIAL, Routine 05/08/2012 1:52 PM Results for this AUTOMATED EDT procedure are i n the results section. TYPE AND SCREEN, SDP Routine 05/08/2012 1:52 PM DJD (degenerat silverio (FUTURE SURGERY, [facility] EDT joint disease) of SAME DAY PROGRAM hip ONLY) ABO/RH TYPING Routine 05/08/2012 1:52 PM DJD (degenerative Res ults for this EDT joint disease) of procedure are in hip the results section. URINALYSIS WITH Routine 05/08/2012 1:52 PM DJD (degenerative R esults for this REFLEX CULTURE EDT joint disease) of procedur e are in hip the results section. PROTHROMBIN TIME Routine 05/08/2012 1:52 PM DJD (degenerative Results for this EDT joint disease) of procedure are in hip the results section. CBC (WITH DIFF) Routine 05/08/2012 1:52 PM DJD (degenerative R esults for this EDT joint disease) of procedure are in hip the results section. ANTIBODY SCREEN Routine 05/08/2012 1:52 PM DJD (degenerative R esults for this EDT joint disease) of procedure are in hip the results section. URINE CULTURE Routine 05/08/2012 1:52 PM DJD (degenerative Res ults for this EDT joint disease) of procedure are in hip the results section. BASIC METABOLIC PANEL Routine 05/08/2012 1:52 PM DJD (degenera tive Results for this (NON-FASTING) EDT joint disease) of procedure are in hip the results section. documented in this encounter Results DIFFERENTIAL, AUTOMATED (05/08/2012 1:52 PM EDT) P athologist Signature Neutrophils % 44.6 34.0 - CERNER 71.0 % MILLENNIUM Neutr Abs (ANC) 3.12 1.50 - CERNER 6.30 MILLENNIUM x10(3)/mcL Lymphocytes % 42.2 19.0 - CERNER 53.0 % MILLENNIUM Lymphocytes Abs 3.0 1.0 - 3.6 CERNER x10(3)/mcL MILLENNIUM Monocytes % 6.4 4.0 - 13.0 CERNER % MILLENNIUM Monocyte Abs 0.4 0.2 - 1.0 CERNER x10(3)/mcL MILLENNIUM Eosinophils % 6.4 0.0 - 7.0 CERNER % MILLENNIUM Eosinophils Abs 0.4 0.0 - 0.5 CERNER x10(3)/mcL MILLENNIUM Basophils % 0.3 0.0 - 2.0 CERNER % MILLENNIUM Basophils Abs 0.0 0.0 - 0.2 CERNER x10(3)/mcL MILLENNIUM Immature Gran % 0.10 0.00 - CERNER 0.66 % MILLENNIUM Comment: Immature granulocytes(IG's)percentage an d absolute count will include metamyelocytes, myelocytes, and promyelo cytes. Blood smears from CBCs yielding IG's will be scanned manually for concor dance. If this scan disagrees with the automated IG or if promyelocytes are not ed, a manual differential will be performed. Lily Gran Abs 0.01 0.00 - 0.05 x10(3)/mcL CER NER MILLENNIUM Specimen Anatomical Collection Method Collection Time Receive d Time (Source) Location / / Volume Laterality Blood specimen 05/08/2012 1:52 PM 012 2:00 (specimen) EDT PM EDT Damon Hobson MD HEMATOLOGY ORDERABLES Performing Organization Address City/State/ZIP Code Phon e Number [place] [id number] CERNER MILLENNIUM ANTIBODY SCREEN (05/08/2012 1:52 PM EDT) Analysis Performed At Patho logist Time Signature Ab Screen Negative [facility] Expires at [id number] [facility] [id number] on: [facility] Specimen Anatomical Collection Method Collection Time Receive d Time (Source) Location / / Volume Laterality Blood specimen 05/08/2012 1:52 PM 012 2:20 (specimen) EDT PM EDT Resulting Agency Comment Spec In Lab Damon Hobson MD BLOOD BANK ORDERABLES Performing Organization Address City/[facility]/[place] [address] [facility] ABO/RH TYPING (05/08/2012 1:52 PM EDT) P athologist Signature ABORh Type B Pos [facility] Specimen Anatomical Collection Method Collection Time Receive d Time (Source) Location / / Volume Laterality Blood specimen 05/08/2012 1:52 PM 012 2:20 (specimen) EDT PM EDT Resulting Agency Comment Spec In Lab Damon Hobson MD BLOOD BANK ORDERABLES Performing Organization Address City/[facility]/[place] [address] [facility] Urine culture Clean Catch Urine (05/08/2012 1:52 PM EDT) Patholo gist Method Time Signature Urine Culture [facility] ? Patient Name: SAL MARAVILLA ? Ordered By: [facility]ON [facility] ? MR#: [id number] ?LOC: ??4V ? /Sex: ??1950 (62 years), ? Male ? PROCEDURE: Urine Culture ?SOURCE: U CC ? COLLECTED: 05/08/2012 13:52 ? STARTED: 05/08/2012 14:17 ? FINAL REPORT ? Final Report ? Verified:05/09/2012 08:08 ? No growth (Less than 1,000 cfu/ml). ? Specimen (Source) Anatomical Collection Method Collection Time Re ceived Time Location / / Volume Laterality Urine specimen 05/08/2012 1:52 05/08/2012 2:17 obtained by clean PM EDT PM EDT catch procedure (specimen) Resulting Agency Comment Spec In Lab Damon Hobson MD MICROBIOLOGY - GENERAL ORDER MICH Performing Organization Address City/State/[place] [address] CERNER MILLENNIUM Urinalysis with microscopic (05/08/2012 1:52 PM EDT) [facility] Method Time Signature Glucose UA Negative Negative CERNER mg/dL MILLENNIUM Protein UA Negative mg/dL CERNER MILLENNIUM Bilirubin UA Negative Negative CERNER mg/dL MILLENNIUM Urobilinogen UA Normal mg/dL CERNER MILLENNIUM pH UA 6.0 5.0 - 8.0 CERNER MILLENNIUM Blood UA Negative mg/dL CERNER MILLENNIUM Ketones UA Negative mg/dL CERNER MILLENNIUM Nitrite UA Negative CERNER MILLENNIUM Leukocytes UA Negative mcL CERNER MILLENNIUM Appearance UA Clear Clear CERNER MILLENNIUM Spec [place] UA 1.011 1.002 - CERNER 1.030 MILLENNIUM Color UA Yellow Yellow CERNER MILLENNIUM RBC UA <1 0 - 3 /HPF CERNER MILLENNIUM WBC UA 1 0 - 3 /HPF CERNER MILLENNIUM Specimen Anatomical Collection Method Collection Time Receive d Time (Source) Location / / Volume Laterality Urine specimen 05/08/2012 1:52 PM 012 2:00 (specimen) EDT PM EDT Resulting Agency Comment Spec In Lab Damon Hobson MD URINE ORDERABLES Performing Organization Address City/[facility]/ZIP Code Phon e Number [address] CERNER MILLENNIUM Prothrombin Time (05/08/2012 1:52 PM EDT) athologist Signature PT 12.6 11.9 - 14.7 CERNER sec MILLENNIUM Comment: [facility] Transfusion Committee Guidelines: I NR less than 2.0, PTT less than OR equal to 43.5 seconds, or Fibrinogen gre ater than or equal to 100 mg/dl indicate adequate procoagulant activity for hemostasis in patients without underlying bleeding disorders. INR 0.9 0.9 - 1.1 CERNER MILLENNIUM Specimen Anatomical Collection Method Collection Time Receive d Time (Source) Location / / Volume Laterality Blood specimen 05/08/2012 1:52 PM 012 2:00 (specimen) EDT PM EDT Resulting Agency Comment Spec In Lab Damon Hobson MD HEMATOLOGY ORDERABLES Performing Organization Address City/[facility]/ZIP Code Phon e Number [address] [facility] MILLENNIUM (ABNORMAL) Basic Metabolic Panel (non-fasting) (05/08/2012 1:52 PM EDT) athologist Signature Glucose Lvl 177 60 - 199 CERNER mg/dL [facility] Comment: Diabetes: >=200 mg/dL plus symp toms BUN 14 10 - 20 mg/dL CERNER MILLENNIU M Creatinine 0.97 0.80 - 1.50 mg/dL CERNER MILL ENNIUM Comment: Please note that the pediatric reference intervals supplied above were not validated at [facility]. Results from pediatri c patients should be interpreted in conjunction to the patient's age, height and muscle mass. Sodium 138 135 - 145 mmol/L CERNER BELKIS NIUM Potassium 3.3 (L) 3.5 - 5.0 mmol/L CERNER BELKIS NIUM Comment: Please note: ??Patients with WBC >100,00 0 may have falsely elevated Potassium levels. ??For accurate Potassium quantif ication in these patients send serum separator tube (gold top) for subsequent determinations. ??Contact the Clinical Chemistry Laboratory if there are any qu estions. Chloride 99 98 - 107 mmol/L CERNER MILLENN IUM CO2 31 22 - 31 mmol/L CERNER MILLENNI UM Anion Gap 8 5 - 15 mmol/L CERNER MILLENNIU M Calcium 9.3 8.5 - 10.5 mg/dL CERNER BELKIS NIUM Estimated GFR >60 >=60 CERNER MILLENNIU M Comment: The National Kidney Disease Education Pr ogram (NKDEP) has recommended all laboratories report estimated GFR (eGFR) along with plasma creatinine measurements to assist you with recognit ion of early kidney disease. Caveats: ??Plasma creatinine should be a t steady-state (unchanged within the past week). For patient s multiply eGFR by 1.2. The MDRD equation was developed using patients be tween the ages of 18 and 70 years. ?? The MDRD equation has not been validated for patients < 18 years of age and should not be used to assess renal function in the pediatric population. ??The MDRD eGFR equation will also overestimate the true GFR of patients above the age of 70. ??This overestimation is variable bu t increases with age. At present, NKDEP does NOT recommend usi ng the MDRD equation for drug dosing purposes and pharmacists should continue to use their current dosing methods. In addition, numerical eGFR values great er than 60 ml/min/1.73 square meters should be treated as > 60, and not an ex act number due to greater inaccuracies at these higher values. Per NKDEP, they classify normal renal function as any GFR >60ml/min/1.73 square meters; chronic kidney disease wh en GFR <60, and renal failure when GFR <15. ??This calculation may not be valid for patients with atypical muscle mass (very lean or obese), acute renal failur e, and in patients with diabetic kidney disease. References: http://nkdep.nih.gov/resources/NKDEP_Sug gestn4Labs_0606_508.pdf http://www.kidney.org/professionals/kls/ pdf/faq_gfr.pdf Kj K, Juan Carlos NA, Ross AK, Isidro TS, Jduith AD, Herminio SHREYA. Relative performance of the MDRD and CKD-EPI equa tions for estimating glomerular filtration rate among patients with vari ed clinical presentations. Clin J Am Soc Nephrol;6:1963-72. Specimen Anatomical Collection Method Collection Time Receive d Time (Source) Location / / Volume Laterality Blood specimen 05/08/2012 1:52 PM 012 2:00 (specimen) EDT PM EDT Resulting Agency Comment Spec In Lab Damon Hobson MD CHEMISTRY ORDERABLES Performing Organization Address City/[facility]/ZIP Code Phon e Number [address] CERNER MILLENNIUM CBC (with Diff) (05/08/2012 1:52 PM EDT) P athologist Signature WBC 7.0 4.0 - 10.0 CERNER x10(3)/mcL MILLENNIUM RBC 5.27 4.63 - 6.08 CERNER x10(6)/mcL MILLENNIUM Hemoglobin 16.7 13.7 - 17.5 CERNER gm/dL MILLENNIUM Hematocrit 47.4 40.0 - 51.0 CERNER % MILLENNIUM MCV 89.9 79.0 - 92.0 CERNER fL MILLENNIUM MCH 31.7 25.6 - 32.2 CERNER pg MILLENNIUM MCHC 35.2 32.0 - 36.5 CERNER gm/dL MILLENNIUM Platelets 190 145 - 370 CERNER x10(3)/mcL MILLENNIUM RDWSD 42.1 35.0 - 46.0 CERNER fL MILLENNIUM RDWCV 13.0 10.9 - 14.4 CERNER % MILLENNIUM MPV 10.5 9.0 - 12.0 CERNER fL MILLENNIUM Specimen Anatomical Collection Method Collection Time Receive d Time (Source) Location / / Volume Laterality Blood specimen 05/08/2012 1:52 PM 012 2:00 (specimen) EDT PM EDT Resulting Agency Comment Spec In Lab Damon Hobson MD HEMATOLOGY ORDERABLES Performing Organization Address City/[facility]/ZIP Code Phon e Number [address] CERNER MILLENNIUM documented in this encounter Visit Diagnoses Diagnosis DJD (degenerative joint disease) of hip Osteoarthrosis, unspecified whether gene ralized or localized, pelvic region and thigh documented in this encounter Care Teams Abattoir Supervisor Relationship Specialty Start Date End Date Adi Bonilla DO PCP - General 08/25/10 08/24/15 [address] [place] [address] documented as of this encounter
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
--- OUTSIDE RECORDS SUMMARY | 2022-06-29 14:23 | XMS_ITS | Encounter Summary ---
:1950 Author Organization [facility] [place] [address] Care Team Providers Name Role Phone Adi Bonilla DO Primary Care Provider Reason for Visit Reason Comments Right Hip Pain Encounter Details Date Type Department Care Team Description 05/04/2012 Office Visit Orthopaedics at [facility] Anthony Benitez ([facility] MD [place] joint disease) of hip [facility] (Primary Dx) [place] [address] CENTER [phone] ORTHOPAEDIC SURGERY [place], [place] [address] Social History Tobacco Use Types Packs/Day Years Used Date Never Smoker Smokeless Tobacco: Never Used Alcohol Use Standard Drinks/Week Comments Yes 0 (1 standard drink = 0.6 oz pure alcoho l) Sex Assigned at Date Recorded Not on file documented as of this encounter Last Filed Vital Signs Vital Sign Reading Time Taken Comments Blood Pressure 136/88 05/04/2012 11:04 AM EDT Pulse 81 05/04/2012 11:04 AM EDT Temperature - - Respiratory Rate - - Oxygen Saturation - - Inhaled Oxygen Concentration - - Weight 104.8 kg (231 lb) 05/04/2012 11:04 AM EDT Height 182.9 cm (6') 05/04/2012 11:04 AM EDT Body Mass Index 31.33 05/04/2012 11:04 AM EDT documented in this encounter Patient Instructions Patient InstructionsMayra Palmer, COMMODITIES CLERK - 05/04/2012 11:04 AM EDT Welcome to [facility] [employer], your secure online access to your electronic medical record at [facility]. Using [employer] you will be able to send messages to your providers, view your test results, renew prescriptions, schedule appointments, and much more. Follow these instructions to enter your personal [facility] [employer] account for the first time: 1. Start your internet browser and type [email or web address] My plate into the address bar. 2. In the New User box on the right-hand side of the Welcome page click the link that states, ???I have an activation code.?? 3. On the Identification page, follow these steps: a) Enter your [facility] [employer] activation code: [email or web address] b) Expires: 06/18/12 11:04 AM IMPORTANT: This Activation Code will on the above mentioned date. If you do not sign up for [facility] [employer] by this date, you will need to request another activation code. c) Enter your date of , using the calendar tool provided. d) Enter your Zip code. e) Select ???submit?? to go to the next page. 4. On the Create Account page, follow these steps: a) Create a [facility] [employer] username. This can???t be changed, so choose one you won???t forget. b) Create a password that???s at least six characters long, and that contains at least two numbers. Your password can be changed at any time. Confirm your password by entering it once more. c) Enter your email address. This will be used to alert you to new information. Confirm your email address by entering it once more. d) Enter your security question. This will be used if you forget your password. e) Enter your security answer. Confirm your security answer by entering it once more. f) Select ???submit?? to view your electronic medical record. If you have any questions about [employer] or your Access Code, please call for [place], for [place] or for [place]. If you need technical support, please e-mail [email or web address]. Remember, myD-H is NOT for urgent needs! Always dial 911 for medical emergencies. documented in this encounter Progress Notes Anthony Benitez - 05/04/2012 12:08 PM EDT Mr. Paul is a 62-year-old gentleman that we saw back in January. Right hip pain has definitely gotten worse since we have seen him. He is well aware of the diagnosis of degenerative arthritis of the hip. The important thing to remember with this gentleman who has now decided on having hip replacement, (something his has enjoyed in the past) is that because of his history of DVT with a pulmonary embolism 25 years ago that will be much more aggressive with his anticoagulation and we will keep him on Coumadin for three months. We will be aiming for an INR between 2.5 to 3.0. The goals, risks, and concerns were already been carefully explained and understood, and we will proceed with a ceramic on high-density polyethylene bearing surface in the near future. CC: Adi Bonilla DO Family Medicine [address] [place] [address] documented in this encounter Plan of Treatment Not on filedocumented as of this encounter Visit Diagnoses Diagnosis DJD (degenerative joint disease) of hip - Primary Osteoarthrosis, unspecified whether gene ralized or localized, pelvic region and thigh documented in this encounter Care Teams Plant Attendant Relationship Specialty Start Date End Date Adi Bonilla DO PCP - General 08/25/10 08/24/15 [address] [place] [address] documented as of this encounter
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
--- OUTSIDE RECORDS SUMMARY | 2022-06-29 14:23 | XMS_ITS | Encounter Summary ---
:1950 Author Organization [place] [address] Care Team Providers Name Role Phone Wilton Bonilla DO Primary Care Provider Encounter Details Date Type Department Care Team Description 05/16/2012 Surgery Main Operating Room Damon Benitez TO TAL HIP ARTHROPLASTY - [facility] POSTERIOR (WRVU 20.72) [facility] [address] [place] [address] [place] [address] [phone] (Wo rk) Social History Tobacco Use Types Packs/Day Years Used Date Never Smoker Smokeless Tobacco: Never Used Alcohol Use Standard Drinks/Week Comments Yes 0 (1 standard drink = 0.6 oz pure alcoho l) Sex Assigned at Date Recorded Not on file documented as of this encounter Last Filed Vital Signs Vital Sign Reading Time Taken Comments Blood Pressure 127/71 05/18/2012 1:20 PM EDT Pulse 97 05/18/2012 1:20 PM EDT Temperature 37.8 ??C (100 ??F) 05/18/2012 1:20 PM EDT Respiratory Rate 18 05/18/2012 1:20 PM EDT Oxygen Saturation 93% 05/18/2012 1:20 PM EDT Inhaled Oxygen Concentration - - Weight 102.1 kg (225 lb) 05/16/2012 3:37 PM EDT Height 182.9 cm (6' 0.01) 05/16/2012 3:37 PM EDT Body Mass Index 30.51 05/16/2012 3:37 PM EDT documented in this encounter Discharge Instructions Discharge InstructionsBrandi Norton PA - 05/18/2012 2:01 PM EDT Anticoagulation Instructions: For your safety, it is very important to be aware of the following details related to your taking ???blood thinning?? medication. Compliance: Take your medication exactly as directed. If you miss a dose or taking more than you are scheduled to take could result in clotting or bleeding issues. Follow up blood work (INR testing): You must have an INR test within two to three days after being discharged from the hospital to be sure your levels are safe. Call your provider when you get home ifthis appointment has not been already arranged. Dietary interactions: Foods high in vitamin K have a potential to interfere with your anticoagulation therapy. Consistency is lane. Refer to your booklet ???My Guide to Coumadin?? for a complete list of foods to be familiar with. Signs and Symptoms of adverse events to be reported include any unusual bleeding or bruising, increased pain swelling or sudden shortness of breath. In the event that you should experience any of the above, seek medical attention as needed. Patient InstructionsBrandi Norton PA - 05/16/2012 5:00 PM EDT Activity: 1. You can fully weight bear as tolerated on your left leg using a walker or crutches at all times for balance and protection. 2. Remember your hip precautions: DO NOT cross your legs, DO NOT flex at your hip more than 90 degrees, use a raised seating/raised toilet seat, use the ABduction pillow OR a regular pillow between your legs to remind you not to cross your legs. NO active AB-duction of your left hip. 3. Dr. Benitez wants you to use your leg funeral home assistant to get out of bed. 4. Wear the DAMION hose bilaterally to your lower legs until you are seen in followup. You should remove these at least once per day to inspect your skin. Coumadin flow sheet: Date Notes INR Coumadin (mg) 05/16 Day of Surgery 1.1 5 mg 8/15 POD 1 1.1 5 mg + Lovenox 40 mg 816 POD 2 1.2 7.5 mg to be taken at home today at 5 PM Lovenox 40 mg given prior to discharge today Anti-coagulation follow up: 1. You should take 7.5 mg (1 and 1/2 of the 5 mg pills) of Coumadin at 5 pm today at home. It is VERY important to take your Coumadin at the SAME TIME every day 2. Your coumadin level or INR target range is 2-3 and this will need to be checked by the VisitingNurse on the day after discharge and at least twice per week thereafter (usually every Tuesday and ). The INR should be reported to the [facility] Ortho clinic at [phone], and you will be informed of any needed changes in your Coumadin dose. 3. If your INR level is ever above 3.5 you should not participate in aggressive Physical therapy exercises - you can mobilize/ambulate. This will decrease the possibility of more bleeding into your joint. Once your INR is less than 3.5 you can resume Physical therapy. One of the Orthopedic nurses willcall you with further instructions as needed. 4. You will be on Coumadin for at least 3 months, possibly 6 months depending on your follow up withDr. Benitez. After your dose on August 16, STOP the Coumadin or as directed by Dr. Benitez. Lovenox injections: Your INR level did not increase as much as expected after surgery so you have been discharged on Lovenox AND coumadin. You will be on the Lovenox injections (40mg daily) until your INR level is greater than 2.5. Once that happens, stop the Lovenox and continue just the coumadin as instructed above. Diet: Resume a regular diet low in concentrated sweets and simple carbohydrates but increase your intake of fluids and fiber while you are on narcotic pain meds to prevent constipation. Drink plenty offluids to stay hydrated. Increase the amount of protein in your diet to promote healing. Breathing: Be sure to use your incentive spirometer regularly (~5 times an hour while awake) at home. Also, you should wear your CPAP at night for your sleep apnea. Driving: None until you are cleared to do so by your orthopedic surgeon. Ideally you should not drive while you are on narcotic pain meds as they can affect your judgement and reaction time. Call your surgeon, Dr. Benitez, with any questions/concerns. Medications: 1. The pain medication you are on can cause constipation so increase your intake of fluids and fiberwhile you are on them. The stool softener, Sennakot, that has been prescribed can also be taken to facilite a bowel movement. You can also take an xycv-kir-yjqcxov medication, miralax if needed. 2. If you need a renewal on your narcotic pain medication, you need to give the Orthopedic clinic enough time to process your request. This can take up to three days, so plan accordingly. 3. Take Tylenol around the clock for 10 days after your surgery (May 26). This will help to decrease your pain when combined with your other medications. 4. As your pain improves, it is very important to decrease your dose of Oxycodone and space your doses further apart. Right Hip Wound: 1. Suture / staple removal 12-14 days post-op. (approximately May 30) 2. May shower if safe standing or with a shower seat. DO NOT submerge the wound. Pat the operative dressing dry after. After May 23 when the operative dressing is removed, continue to cover your incision with sterile gauze and Tegaderm prior to showering and remove after shower. Do this until thesutures have been removed. 3. Remove your operative dressing 7 days from your surgery (May 23). When it is removed you canleave the incision open to air or cover it with a light dressing and tape. 4. If you have lots of drainage when you get home (and it is before May 23), remove this operative dressing and replace it with dry sterile gauze and tape to hold the dressing in place. Continue with daily dressing changes (and as needed) until the drainage stops, then remove the dressing and leave the incision open to air or lightly covered. 5. Call your orthopaedic surgeon- Dr. Benitez (#[phone]) with any fevers, chills, sweats, redness or discharge from the wound. Misc: Remember that ICE and elevation are very important after surgery to help decrease swelling andcontrol pain. Use ICE for 20-30 minutes at a time and keep your leg elevated as much as possible. Follow Up Appointment: 1. X-rays in Radiology 3T prior to follow up appointment: June 19 at 9:50 AM. Follow up appointment with Dr. Benitez in Orthopedics 3C: June 19 at 10:50 AM. 2. You are to follow up with your primary doctor, WILTON BONILLA DO in the next 1-2 weeks regarding your blood sugars and sleep apnea. This appointment has been scheduled for: May 26 at 10:30 AM. If you have any questions or concerns sooner, please call: [phone] documented in this encounter Medications at Time of Discharge [...] multivitamin Take 1 tablet by 0 05/18/20122012 Vhdi-Lf-PV-Min mouth daily. (THERAPEUTIC-M) 27-0.4 mg tablet polyethylene glycol Take 17 g by mouth [...] Oxycodone and space your doses further apart. albuterol (PROVENTIL Inhale 2 puffs into 0 05/27/2016 HFA;VENTOLIN HFA) 90 the lungs every 4 mcg/actuation inhaler hours as needed. Use with spacer fluticasone (FLOVENT) Inhale 1 puff into 0 05/27/2016 110 mcg/actuation the lungs 2 times inhaler daily. sildenafil (VIAGRA) 100MG, PO, PRN 0 03/25/2010 0 05/23/2019 100 mg tablet documented as of this encounter Progress Notes Susan Mccloud RN - 05/18/2012 3:36 PM EDT Pt discharged to home, discharge instructions given and explained for lovenox/coumadin and general surgery information as well as precautions to maintain. Information, scripts, belongings given to wifeand mother, pt IV removed intact without any issue, pt ambulating well alone with walker and pain controlled with PO meds, +CSMTs, MAEx4, on RA lungs CTAB, able to have multiple bowel movements before discharge after suppository given, denied any numbness/tingling/SOB/CP, no questions asked, see doc flowsheet for full assessment, Pt wheeled downstairs to awaiting family vehicle with no issues Damon Benitez - 05/18/2012 12:09 PM EDT Last Updated 12/31/10-/BHAVANA Date:05/18/2012 Time: 12:09 PM Pertinent Problem List: Patient Active Problem List Diagnoses Code ??? Asthma 493.90AE ??? Right hip OA; s/p R lateral CARY 05/16/12 715.95U ??? HTN (hypertension) 401.9AF ??? Hypercholesteremia 272.0J ??? H/o DVT/PE following LE trauma V12.55K ??? Sleep apnea 780.57C Clinical Status: comfortable and well perfused on room air Physical Exam: VS: within normal limits I&O Satisfactory Resp. Status: no respiratory symptoms Abdominal: has no abdominal pain, rectal pain, no vomiting, diarrhea, contipation or painful bowel movements Distal Nerve Vascular exam: Intact intact Swelling: swelling minimal Wound: acceptable Labs: Lab Results Component Value Date WBC 9.2 05/18/2012 HGB 11.8* 05/18/2012 PLATELET 141* 05/18/2012 K 3.4* 05/18/2012 CO2 30 05/18/2012 BUN 16 05/18/2012 CREATININE 0.86 05/18/2012 INR 1.2* 05/18/2012 Pertinent Imagaing: Plan:will need tyo bridge until inr @ 2.5 but is well enough to leave with less reliance on narcotics Mel Yao PTA - 05/18/2012 8:39 AM EDT Physical Therapy Treatment Note Visit #: 2 Patient Dx: Pt. is a 62 y.o. male admitted on 05/16/2012 by Damon Lan MD for R CARY . Precautions: hip precautions including no hip flexion >90 degrees, no hip adduction across the midline, and no hip internal rotation >10 degrees, WBAT R LE Interval History: Required O2 overnight S: The hip is stiff, but I think I doing better today. O: Patient seen for 35 min's for exercise and functional mobility to address goals. Pt demonstrated the following: Modified independent with sit>-<stand to the walker. Patient ambulated 60 feet with the front wheeled walker with supervision. Modified independent with bed mobility on a flat mat with use of leg funeral home assistant. Patient did exercises for the right LE consisting of ankle pumps, adductor sets, gluteal sets, A/A heel slides, LAQ X8 each. Patient was able to ascend and descend 4 steps with one rail and a crutch with standby assist. He was able to go up a 7 platform step with 2 crutches with contact guard of one X2. Review of hip precautions. Pain: 7/10 during therapy. Patient had been premedicated. Vitals: Oxygen saturation 95% on RA during gait. HR 83. Education: Pt/family education ongoing on the hip precautions and sequencing on the stairs with the patient verbalizing understanding. Staff Communication: Patient status, treatment, and mobility recommendations discussed with nursing. A: Pt is POD# 2 R CARY. Patient has made good progress with his transfers and bed mobility while following his hip precautions. He is ambulating with the walker with supervision and will have his at home with him for a few days. He did well with rail and crutch with supervision and needs contact guard with 2 crutches. He will be staying on the first floor at discharge. PT goals are essentially met. Pt will benefit from ongoing therapeutic interventions as provided in the home to achieve pt's and therapy goals Physical Therapy Goals: Goals: (to be achieved by 05-19-12 ) Pt will be knowledgeable of prescribed exercises. - Met Pt will be knowledgeable and compliant with any above noted precautions. - Met Pt will move supine<>sit w/ leg funeral home assistant (I) . - Met Pt will move sit<>stand (I) to walker . - Met Pt will ambulate 3x/day at least 50 feet using walker WBAT R LE . - Met with supervision. Pt will negotiate steps w/ crutches/rail (I) to prepare for d/c home .- Met with standby assist. Andcontact guard with 2 crutches. P: Cleared for discharge home from a PT standpoint. Equipment: Patient has borrowed a walker for home. He was issued crutches. Total time spent with patient: 35 minutes Total timed interventions: 35 minutes Pager:[phone] MEL YAO PTA Physical Therapy Rehabilitation Department Bria Garcia MD - 05/18/2012 5:58 AM EDT ORTHOPAEDIC INPATIENT PROGRESS NOTE Patient Name: Sal Maravilla Age: 62 y.o. Surgery: R lateral CARY 05/16/12 Non-ortho issues/significant PMH: Patient Active Problem List Diagnoses Code ??? Asthma 493.90AE ??? Right hip OA; s/p R lateral CARY 05/16/12 715.95U ??? HTN (hypertension) 401.9AF ??? Hypercholesteremia 272.0J ??? H/o DVT/PE following LE trauma V12.55K Subjective: Had a good day yesterday. Worked well with PT. Pain controlled. A little stiff overnightbut got up multiple times to go to the bathroom and felt this got easier over the course of the evening. Required O2 overnight, c/w known CIRO; off O2 during the day. Hoping to go home today. Objective: Temp: [36.6 ??C (97.9 ??F)-37.3 ??C (99.1 ??F)] Heart Rate: [71-93] Resp: [16-18] BP: (118-139)/(70-80) SpO2: [93 %-95 %] Intake/Output Summary (Last 24 hours) at 05/18/12 0589 Last data filed at 05/18/12 0427 Gross per 24 hour Intake 1740 ml Output 5400 ml Net -3660 ml Gen: alert and oriented, no apparent distress. RLE: Wearing pants, unable to inspect wound calf soft, nontender sensation intact superficial peroneal, deep peroneal, tibial distributions motor intact ankle plantar flexion, ankle dorsiflexion, EHL 2+ DP pulse, < 2 sec cap refill Labs: Recent Labs Basename 05/18/12 0348 05/17/12 0441 05/16/12 1624 ??? WBC 9.2 7.6 -- ??? HGB 11.8* 12.8* -- ??? HCT 35.0* 37.4* -- ??? PLATELET 141* 154 -- ??? NA 138 140 -- ??? K 3.4* 4.6 -- ??? CL 100 104 -- ??? CO2 30 30 -- ??? BUN 16 14 -- ??? CREATININE 0.86 0.88 -- ??? INR 1.2* 1.1 1.1 X-rays: AP Pelvis, AP/Lateral R hip: components in good position, no evidence of fx or dislocation Assessment: Stable s/p R CARY 05/16 Plan: Glucose intolerance: not requiring insulin here, would recommend f/u with PCP for discussion of diet control v institituion of oral hypoglycemic Activity: Mobilize with PT, weight bear as tolerated Cody: is out Dressings: Mepilex to stay in place until 05/23 Anticoagulation: coumadin x 3 months with ppx lovenox bridge until INR > 2.5 for h/o DVT/PE Pain control: d/c STANDARDS ANALYST -> scheduled tylenol, prn oxycodone this AM Discharge planning: home when clears PT, likely today Sutures out 2 weeks F/u as scheduled Shashank Lloyd, GUILLAUME - 05/17/2012 3:35 PM EDT S: I have walked around a lot today. O: Chart reviewed and met with pt, , and mother. Pt had R CARY yesterday by Dr Benitez. 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 Pt denies the need for in-pt rehab and feels he can manage at home with VNA. Pt requests [facility] for services. He will need PT/INR Tue, then q M&TH, SR in 10-14 days, and Home PT 2xwk. Pt has the DME he needs. A: Progressing toward d/c to home with VNA and family assist. P: Will follow, anticipate d/c in am. Pratibha Bain RN - 05/17/2012 10:33 AM EDT [id number] shift: Pt is OOB to chair. Pt reports pain as tolerable. Hip dressing clean/dry and intact. Pt ambulated with PT/OT. Agree with previous car retarder operator. Will continue to monitor pt. Damon Benitez - 05/17/2012 10:10 AM EDT Last Updated 12/31/10-JR/PMB Date:05/17/2012 Time: 10:10 AM Pertinent Problem List: Patient Active Problem List Diagnoses Code ??? Asthma 493.90AE ??? Right hip OA; s/p R lateral CARY 05/16/12 715.95U ??? HTN (hypertension) 401.9AF ??? Hypercholesteremia 272.0J ??? H/o DVT/PE following LE trauma V12.55K Clinical Status: comfortable up in chair with appropriate transition pain Physical Exam: VS: within normal limits I&O: Satisfactory Resp. Status: no respiratory symptoms Abdominal: has no abdominal pain, rectal pain, no vomiting, diarrhea, contipation or painful bowel movements Distal Nerve Vascular exam: Intact intact Swelling: swelling Wound: acceptable Labs: Lab Results Component Value Date WBC 7.6 05/17/2012 HGB 12.8* 05/17/2012 PLATELET 154 05/17/2012 K 4.6 05/17/2012 CO2 30 05/17/2012 BUN 14 05/17/2012 CREATININE 0.88 05/17/2012 INR 1.1 05/17/2012 Pertinent Imagaing: fine Mobilize and BRIDGE DIRECTED Plan: STYT Bria Garcia MD - 05/17/2012 7:28 AM EDT ORTHOPAEDIC INPATIENT PROGRESS NOTE Patient Name: Sal Maravilla Age: 62 y.o. Surgery: R lateral CARY 05/16/12 Non-ortho issues/significant PMH: Patient Active Problem List Diagnoses Code ??? Asthma 493.90AE ??? Right hip OA; s/p R lateral CARY 05/16/12 715.95U ??? HTN (hypertension) 401.9AF ??? Hypercholesteremia 272.0J ??? H/o DVT/PE following LE trauma V12.55K Subjective: Doing well. Had some pain last evening, but STANDARDS ANALYST helping. Has not yet been up. Denies CP,SOB, n/v. Objective: Temp: [36.6 ??C (97.9 ??F)-37.3 ??C (99.1 ??F)] Heart Rate: [72-90] Resp: [6-20] BP: (110-168)/(67-114) SpO2: [90 %-99 %] Intake/Output Summary (Last 24 hours) at 05/17/12 0728 Last data filed at 05/17/12 0524 Gross per 24 hour Intake 5753 ml Output 4550 ml Net 1203 ml Gen: alert and oriented, no apparent distress. RLE: dressing c/d/i, mild swelling calf soft, nontender sensation intact superficial peroneal, deep peroneal, tibial distributions motor intact ankle plantar flexion, ankle dorsiflexion, EHL 2+ DP pulse, < 2 sec cap refill Labs: Recent Labs Basename 05/17/12 0441 05/16/12 1624 ??? WBC 7.6 -- ??? HGB 12.8* -- ??? HCT 37.4* -- ??? PLATELET 154 -- ??? NA 140 -- ??? K 4.6 -- ??? CL 104 -- ??? CO2 30 -- ??? BUN 14 -- ??? CREATININE 0.88 -- ??? INR 1.1 1.1 X-rays: AP Pelvis, AP/Lateral R hip: components in good position, no evidence of fx or dislocation Assessment: Stable s/p R CARY 05/16 Plan: Glucose intolerance: not requiring insulin here, would recommend f/u with PCP for discussion of diet control v institituion of oral hypoglycemic Activity: Mobilize with PT, weight bear as tolerated Cody: to come out this AM Dressings: changed daily starting pod#2 Antibiotics: Cefazolin ppx x 24h Anticoagulation: coumadin x 3 months with ppx lovenox bridge until INR > 2.5 for h/o DVT/PE Pain control: d/c STANDARDS ANALYST -> scheduled tylenol, prn oxycodone this AM Discharge planning: home when clears PT Sutures out 2 weeks F/u as scheduled Pina Doyle RN - 05/16/2012 1:13 PM EDT Report given to GUILLAUME Puga on 3W Pina Doyle RN - 05/16/2012 12:43 PM EDT Spoke to Antoine Powell CRNA in regards to pts. sleep apnea. Pt having short apneic periods but is able to arouse self within [address] Benitez is aware of hematoma noted to right hip. OK to discharge to floor per anesthesia. Orlando Cardona MD - 05/16/2012 11:50 AM EDT Orthopaedic Surgery Post-Op Check Note Surgery: Right CARY Patient Active Problem List Diagnoses Code ??? Asthma 493.90AE ??? Right hip OA; s/p R lateral CARY 05/16/12 715.95U ??? HTN (hypertension) 401.9AF ??? Hypercholesteremia 272.0J S/Events: Denies CP, SOB, nausea, vomiting, abd pain. Pain well controlled. O: Vitals: Temp: [36.6 ??C (97.9 ??F)] Heart Rate: [72-90] Resp: [10-19] BP: (138-168)/(67-114) SpO2: [95 %-99 %] I/O this shift: In: 3143 [I.V.:2143; Other:1000] Out: 550 [Urine:250; Blood:300] Exam: General: NAD, awake/alert Resp: Breathing comfortably Abd: S/NT/ND RLE: Dressing c/d/i. Motor intact to EHL, FHL, TA. Sensation intact in foot/calf. Brisk capillary refill distally. -swelling noted around incision, no ecchymosis or drainage. Labs: No results found for this basename: WBC:3,HGB:3,HCT:3,PLATELET:3,NA:3,K:3,CL:3,CO2:3,BUN:3,CREATININE:3 in the last 72 hours Imaging: AP Pelvis The left hip is reduced. There is no evidence of intra-op fracture. A/P: 62 y.o. year old male POD#0 s/p left CARY, progressing well with stable vitals and uop. - Orders reviewed - continue all post-operative care - Posterior hip precautions - ABD pillow To Leigh RN - 05/16/2012 11:45 AM EDT 1130 lunch coverage 1140 hematoma noted in Rt Hip Dr Cardona informed no new orders at this time Pina Doyle RN - 05/16/2012 11:10 AM EDT Family in to visit at this time Pina Doyle RN - 05/16/2012 10:50 AM EDT xrays done at this time documented in this encounter H&P Notes Damon Benitez - 05/16/2012 6:08 AM EDT The patient's history and physical exam have been reviewed and completed. There has been no intervalchange from that of the pre-operative history and physical exam done within the last 30 days. Bria Garcia MD - 05/10/2012 2:36 PM EDT Patient Name: Sal Maravilla Patient Age: 62 y.o. Birthdate: 1950 Admit date: (Not on file) Attending Physician: Damon Benitez MD See scanned document (05/05/12) for pre-procedural H&P. documented in this encounter Procedure Notes Provider, Scanning - 05/19/2012 11:13 AM EDTAssociated Order(s): SCAN DOC: IMPLANTABLE DEVICES; SCAN DOC: IMPLANTABLE DEVICES documented in this encounter Miscellaneous Notes Miscellaneous - Provider, Scanning - 05/19/2012 11:13 AM EDT Miscellaneous - Provider, Scanning - 05/19/2012 11:13 AM EDT Plan of Care - Susan Mccloud RN - 05/18/2012 2:37 PM EDT Problem: Pressure Ulcer Risk (Using Fantasma Scale) (Adult, Obstetric) Goal: Pressure Ulcer Risk (using Fantasma Scale): Tissue Integrity Outcome: Outcome achieved Date Met: 05/18/12 Pt did not sustain a PU while admitted in hospital and incision is CDI with Ag Mepilex intact, no issues and no questions Plan of Care - Susan Mccloud RN - 05/18/2012 2:36 PM EDT Problem: Pain, Acute (Adult, Obstetric) Goal: Acute Pain: Acceptable Pain Control/Comfort Level - Pain, Acute (Adult, Obstetric) Outcome: Therapy, goal met Date Met: 05/18/12 Pt on PO pain rx and able to tolerate meds; pain within goal and tolerable, educated on stool softeners and prescription dosing/side effects; no questions asked after teaching Plan of Care - Susan Mccloud RN - 05/18/2012 2:34 PM EDT Problem: Hip Replacement, Total (Adult) Goal: Prevent/Manage Potential Problems Based on my scope of practice, I assessed for signs and symptoms of potential problems that could bepresent as documented. Outcome: Therapy, goal partially met Pt leaving with rx for pain and stool softeners, able to have multiple bowel movements before discharge, and pain well controlled. Pt able to ambulate with minimal to no assistance and states I know when I've over done it but it is getting better and easier. Plan of Care - Vivien Suarez RN - 05/17/2012 10:33 PM EDT Problem: Hip Replacement, Total (Adult) Intervention: Activity Promotion Pt oob ambulating with walker independently this afternoon. Gait steady. Following precautions. Sat in chair for most of the afternoon. Has been back and forth to bathroom independently several times. Voiding large amounts of clear hema urine. Taking po well. Calls for assist as needed. PT/OT evaluated today. Improving each time with transitioning in and out of bed. Will continue to monitor. Pt ableto t&p in the bed independently. Problem: Pain, Acute (Adult, Obstetric) Goal: Acute Pain: Acceptable Pain Control/Comfort Level - Pain, Acute (Adult, Obstetric) Outcome: Present (see interventions, notes) Pt reports pain in right hip with movement. Currently receiving Oxycodone prn and scheduled Tylenol with relief. Continue with current pain medication regimen. Pt able to make needs known and instructed to make staff aware of increased pain/need for pain medication. Initial Assessments - Mckayla Ansari, PT - 05/17/2012 4:26 PM EDT Physical Therapy Evaluation Total Hip Arthroplasty Patient Profile: Pt. is a 62 y.o. male admitted on 05/16/2012 by Damon Lan MD for R CARY. PMH: Past Medical History Diagnosis Date ??? Allergy ??? Blood disorder ??? Breathing problem ??? Musculoskeletal disease ??? Hypertensive disease ??? Elevated cholesterol ??? Chronic pain Asthma H/o DVT/PE following LE trauma PSH: Past Surgical History Procedure Date ??? Created by interface Colonoscopy Procedure Date: Jun 2009 ??? Created by interface Entered not Verified Procedure Date: 10/01/2010 ??? Cranio/maxillofacial surg unlisted ??? Total hip arthroplasty 05/16/2012 @TOTAL HIP ARTHROPLASTY performed by DAMON BENITEZ at [facility] MAIN OR Social History: Patient lives with their spouse in [place], [place]. Stairs: flight with a rail to second level of home. 4-5 steps to enter home. can stay on main levelinitially Baseline Mobility: independent Equipment at home: borrowed a wheeled walker, have a commode, have a walk-in shower. Precautions/Special Considerations: hip precautions including no hip flexion >90 degrees, no hip adduction across the midline, and no hip internal rotation >10 degrees, WBAT R LE. Subjective: ???I'll need more practice on that?? (bed mobility using leg funeral home assistant). Objective: Vitals: SpO2: 99% RA, HR =72 Most recent Hgb value: 12.8 Pain: Tolerable on oral med's Functional Mobility: Supine->sit : practiced transfer in & OOB R side using leg funeral home assistant for R LE and cues for technique, suggestions of ways to make movement easier. Worked very hard but needed min A to get in and cues to lean up on elbows since he didn't have railing to pull up on @ home and couldn't perform a sit-up. Reviewed and practiced exercises while in bed w/ leg funeral home assistant and performed a few ex's in chair (LAQ & ankle pumps). Sit-><stand : Able to push up (I) using UE's and L LE w/ reminder to extend R LE and purpose; explanation of flexion precaution- he verbalized understanding. Descend to chair w/ supervision and education to sit w/ equal wt on buttocks instead of leaning to his L to avoid IR of R LE- he verbalized understanding. Sitting EOB almost turned to see who walked in room until I stopped him from twisting; he is learning to put precautions into action. Gait: Ambulated into hallway ~ 100 ft using FWW w/ cues to push vs lift walker and try to step through w/ heel strike vs lifting and lowering in a [id number]-[id number] fashion. He did well and by end of walk, able to step through. Close supervision but steady w/ walker. Pt. to utilize mob aides and walker to ambulate more this evening. Today???s Treatment: 1. Initial evaluation Informed Consent: The patient agrees to and understands the PT treatment plan and goals. Education: patient educated on Precautions/protocol and verbalizes understanding. During activity today, I stopped him a few times to explain why action not allowed w/ his hip precautions- he's practicing precautions to understand. observed also. Patient status, treatment, and mobility discussed with RN and mobility aide. Assessment: Pt is POD#1 R CARY. Pt. tolerated today? s session very well. He got OOB > chair w/ mobility aideand moved this morning w/ OT. I worked w/ him after lunch & he agreed to walk again this eveningw/ mobility aides. Pt presents with tolerable pain, decreased strength, functional mobility, and gait skills. Pt will benefit from PT to address his functional deficits to restore prior level of function. Goals: (to be achieved by 05-19-12) Pt will be knowledgeable of prescribed exercises. Pt will be knowledgeable and compliant with any above noted precautions. Pt will move supine<>sit w/ leg funeral home assistant (I). Pt will move sit<>stand (I) to walker. Pt will ambulate 3x/day at least 50 feet using walker WBAT R LE. Pt will negotiate steps w/ crutches/rail (I) to prepare for d/c home. Plan: Patient to be seen daily for physical therapy to include Therapeutic exercises, Therapeutic functional activities, Gait training and Self-care/management. Patient agrees to the plan as stated. Equipment needs: Axillary crutches. Activity plan w/nursing assist or mobility aides: Ambulate this evening & transfer's w/ assist. Discharge Recommendations: Patient would benefit from continued therapeutic interventions 2-3 times a week as provided in a home environment to progress toward functional goals. Physical Therapist recommends: Occupational Therapy consult Total treatment time: 52 minutes Initial evaluation Total timed treatment: 0 minutes MCKAYLA ANSARI PT Pager: [phone] Discharge Summary - Damon Benitez - 05/17/2012 4:26 PM EDT Department of Orthopaedic Medicine - Discharge Summary Patient Name: Sal Maravilla Patient Age: 62 y.o. Birthdate: 1950 Admit date: 05/16/2012 Discharge date and time: 05/18/2012 Attending Physician: Damon Benitez MD Discharge Diagnoses (Hospital Problems) and Secondary Diagnoses (Chronic Problems): Active Hospital Problems Diagnoses ??? Osteoarthritis of right hip S/P Right total hip arthroplasty- 05/16/2012 (Dr. Benitez) ??? CIRO (obstructive sleep apnea)- on CPAP in past Chronic Increased O2 requirement at night, instructed to wear CPAP at home at night, close follow up with PCP. ??? Elevated blood sugars- minimal Pt will have close follow up with PCP, monitored closely throughout his hospital stay, no correction required. Resolved Hospital Problems Diagnoses Date Resolved Active Non-Hospital Problems Diagnoses ??? Elevated PSA ??? BPH (benign prostatic hypertrophy) without obstruction ??? Heart murmur ??? H/o DVT/PE following LE trauma Patient will be bridged on Lovenox until INR >2.5 and on Coumadin 3-6 months. ??? Asthma ??? HTN (hypertension) ??? Hypercholesteremia Operation: 05/16/2012 RIGHT TOTAL HIP ARTHROPLASTY Surgeons: DAMON BENITEZ MD - Primary BRIA GARCIA MD - Resident-Surgeon Chief History of Presentation: Sal Maravilla is a 62 y.o. male with Right hip osteoarthritis. Despite efforts at conservative management, the patient continues to have symptoms that are compromising to quality of life. After discussion of the risks and benefits of surgery, the patient gave informed consent to proceed with the above procedure. Hospital Course: The post operative course was per the total hip arthroplasty pathway. DVT prophylaxis: Coumadin for at least 3 months. Patient was also bridged with Lovenox 40 mg daily until INR greater than 2.5. Patient began rehab on POD#1 with full weight bearing on the right leg remembering to use a walker at all times for balance and protection and strict hip dislocation precautions. Drains were removed POD#1. Cody was removed POD#1 and patient was voiding spontaneously. Wound inspected POD#2and found to be benign. Patient did have a bowel movement before discharge, was passing flatus and eating and drinking well. By POD#2 the patient was medically stable and was cleared for safe dischargeto home with VNA and family support. Of note: The patient's blood sugars were monitored closely post-op- no significantly high sugars, hewill follow up closely with his PCP. Also, the patient did have an intermittent O2 requirement at night. He has known sleep apnea and was instructed to wear his CPAP that he has at home. Important Studies and Lab Data: Labs: Lab Results Component Value Date WBC 9.2 05/18/2012 HGB 11.8* 05/18/2012 HCT 35.0* 05/18/2012 MCV 91.4 05/18/2012 Electrolytes Lab Results Component Value Date Sodium 138 05/18/2012 Potassium 3.4* 05/18/2012 Chloride 100 05/18/2012 CO2 30 05/18/2012 Lab Results Component Value Date BUN 16 05/18/2012 CREATININE 0.86 05/18/2012 Recent Labs Basename 05/18/12 0348 05/17/12 0441 05/16/12 1624 ??? PT 15.0* 14.6 14.5 ??? PTT -- -- -- ??? INR 1.2* 1.1 1.1 Discharge Conditions/Prognosis: Stable, awake, and alert. Mobilizing with a walker, pain controlled on oral medications. Patient Vitals in the past 8 hrs: BP Temp Temp src Pulse Resp SpO2 05/18/12 1320 127/71 mmHg 37.8 ??C (100 ??F) Oral 97 18 93 % 05/18/12 0900 160/77 mmHg - - - - - Discharge to: Home with VNA and family support Discharge Medications: Current Discharge Medication List New Meds Dose Details acetaminophen (TYLENOL) 500 mg tablet 1,000 mg Take 2 tablets by mouth every 8 hours for 7 days. After 7 days, may take Tylenol every 8 hours as needed for mild pain. Qty: 42 tablet Refills: 0 bisacodyl (DULCOLAX) 10 mg suppository [address] 1 suppository rectally daily as needed (constipation or if no BM in 48 hours). Qty: 3 suppository Refills: 0 calcium carbonate (TUMS) 200 mg calcium (500 mg) chewable tablet 1,000 mg Take 2 tablets by mouth 2times daily (with meals). Qty: Refills: enoxaparin (LOVENOX) 40 mg/0.4 mL Syrg injection 40 mg Inject 0.4 mLs subcutaneously. Give 1 injection daily until INR (Coumadin level) is greater than 2.5. Then continue on Coumadin only. Qty: 3 Syringe Refills: 3 multivitamin Wpkv-El-GM-Min (THERAPEUTIC-M) 27-0.4 mg tablet 1 tablet Take 1 tablet by mouth daily. Qty: Refills: polyethylene glycol (MIRALAX) 17 gram packet 17 g Take 17 g by mouth daily. Continue daily until having regular bowel movements, then use as needed for constipation or if no BM in 48 hours. Qty: 10 each Refills: 0 senna-docusate (PERICOLACE) 8.6-50 mg per tablet 1-4 tablets Take 1-4 tablets by mouth 2 times daily. Qty: 60 tablet Refills: 3 warfarin (COUMADIN) 5 mg tablet Take by mouth daily. Daily dose determined by INR. Goal INR 2.0-3.0. Please see discharge summary for today's dose. Qty: 60 tablet Refills: 2 OXYcodone (ROXICODONE) 5 mg immediate release tablet 5-10 mg Take 1-2 tablets by mouth every 4 hours as needed for Pain. As your pain improves, it is VERY important to decrease your dose of Oxycodone and space your doses further apart. Qty: 100 tablet Refills: 0 Continued medications with revised dosing Dose Details atorvastatin (LIPITOR) 40 mg tablet 40 mg Take 1 tablet by mouth every evening. Qty: 30 tablet Refills: losartan-hydrochlorothiazide (HYZAAR) 100-25 mg per tablet 1 tablet Take 1 tablet by mouth daily. Qty: Refills: Continued medications, unchanged Dose Details albuterol (PROVENTIL HFA;VENTOLIN HFA) 90 mcg/actuation inhaler 2 puffs Inhale 2 puffs into the lungs every 4 hours as needed. Use with spacer Qty: Refills: fluticasone (FLOVENT) 110 mcg/actuation inhaler 1 puff Inhale 1 puff into the lungs 2 times daily. Qty: Refills: amlodipine (NORVASC) 5 mg tablet 5 mg Take 5 mg by mouth daily. Qty: Refills: sildenafil (VIAGRA) 100 mg tablet 100MG, PO, PRN Qty: Refills: Medications STOPPED Dose mupirocin (BACTROBAN) 2 % ointment Updated Allergies/ADRs: No Known Allergies Instructions Given to Patient at Discharge: Provider Instructions Activity: 1. You can fully weight bear as tolerated on your left leg using a walker or crutches at all times for balance and protection. 2. Remember your hip precautions: DO NOT cross your legs, DO NOT flex at your hip more than 90 degrees, use a raised seating/raised toilet seat, use the ABduction pillow OR a regular pillow between your legs to remind you not to cross your legs. NO active AB-duction of your left hip. 3. Dr. Benitez wants you to use your leg funeral home assistant to get out of bed. 4. Wear the DAMION hose bilaterally to your lower legs until you are seen in followup. You should remove these at least once per day to inspect your skin. Coumadin flow sheet: Date Notes INR Coumadin (mg) 05/16 Day of Surgery 1.1 5 mg 815 POD 1 1.1 5 mg + Lovenox 40 mg 816 POD 2 1.2 7.5 mg to be taken at home today at 5 PM Lovenox 40 mg given prior to discharge today Anti-coagulation follow up: 1. You should take 7.5 mg (1 and 1/2 of the 5 mg pills) of Coumadin at 5 pm today at home. It is VERY important to take your Coumadin at the SAME TIME every day 2. Your coumadin level or INR target range is 2-3 and this will need to be checked by the VisitingNurse on the day after discharge and at least twice per week thereafter (usually every Tuesday and ). The INR should be reported to the [facility] Ortho clinic at [phone], and you will be informed of any needed changes in your Coumadin dose. 3. If your INR level is ever above 3.5 you should not participate in aggressive Physical therapy exercises - you can mobilize/ambulate. This will decrease the possibility of more bleeding into your joint. Once your INR is less than 3.5 you can resume Physical therapy. One of the Orthopedic nurses willcall you with further instructions as needed. 4. You will be on Coumadin for at least 3 months, possibly 6 months depending on your follow up withDr. Benitez. After your dose on August 16, STOP the Coumadin or as directed by Dr. Benitez. Lovenox injections: Your INR level did not increase as much as expected after surgery so you have been discharged on Lovenox AND coumadin. You will be on the Lovenox injections (40mg daily) until your INR level is greater than 2.5. Once that happens, stop the Lovenox and continue just the coumadin as instructed above. Diet: Resume a regular diet low in concentrated sweets and simple carbohydrates but increase your intake of fluids and fiber while you are on narcotic pain meds to prevent constipation. Drink plenty offluids to stay hydrated. Increase the amount of protein in your diet to promote healing. Breathing: Be sure to use your incentive spirometer regularly (~5 times an hour while awake) at home. Also, you should wear your CPAP at night for your sleep apnea. Driving: None until you are cleared to do so by your orthopedic surgeon. Ideally you should not drive while you are on narcotic pain meds as they can affect your judgement and reaction time. Call your surgeon, Dr. Benitez, with any questions/concerns. Medications: 1. The pain medication you are on can cause constipation so increase your intake of fluids and fiberwhile you are on them. The stool softener, Sennakot, that has been prescribed can also be taken to facilite a bowel movement. You can also take an lsbp-fkr-dwdenrk medication, miralax if needed. 2. If you need a renewal on your narcotic pain medication, you need to give the Orthopedic clinic enough time to process your request. This can take up to three days, so plan accordingly. 3. Take Tylenol around the clock for 10 days after your surgery (May 26). This will help to decrease your pain when combined with your other medications. 4. As your pain improves, it is very important to decrease your dose of Oxycodone and space your doses further apart. Right Hip Wound: 1. Suture / staple removal 12-14 days post-op. (approximately May 30) 2. May shower if safe standing or with a shower seat. DO NOT submerge the wound. Pat the operative dressing dry after. After May 23 when the operative dressing is removed, continue to cover your incision with sterile gauze and Tegaderm prior to showering and remove after shower. Do this until thesutures have been removed. 3. Remove your operative dressing 7 days from your surgery (May 23). When it is removed you canleave the incision open to air or cover it with a light dressing and tape. 4. If you have lots of drainage when you get home (and it is before May 23), remove this operative dressing and replace it with dry sterile gauze and tape to hold the dressing in place. Continue with daily dressing changes (and as needed) until the drainage stops, then remove the dressing and leave the incision open to air or lightly covered. 5. Call your orthopaedic surgeon- Dr. Benitez (#[phone]) with any fevers, chills, sweats, redness or discharge from the wound. Misc: Remember that ICE and elevation are very important after surgery to help decrease swelling andcontrol pain. Use ICE for 20-30 minutes at a time and keep your leg elevated as much as possible. Follow Up Appointment: 1. X-rays in Radiology 3T prior to follow up appointment: June 19 at 9:50 AM. Follow up appointment with Dr. Benitez in Orthopedics 3C: June 19 at 10:50 AM. 2. You are to follow up with your primary doctor, WILTON BONILLA DO in the next 1-2 weeks regarding your blood sugars and sleep apnea. This appointment has been scheduled for: May 26 at 10:30 AM. If you have any questions or concerns sooner, please call: [phone] General Instructions Anticoagulation Instructions: For your safety, it is very important to be aware of the following details related to your taking ???blood thinning?? medication. Compliance: Take your medication exactly as directed. If you miss a dose or taking more than you are scheduled to take could result in clotting or bleeding issues. Follow up blood work (INR testing): You must have an INR test within two to three days after being discharged from the hospital to be sure your levels are safe. Call your provider when you get home ifthis appointment has not been already arranged. Dietary interactions: Foods high in vitamin K have a potential to interfere with your anticoagulation therapy. Consistency is lane. Refer to your booklet ???My Guide to Coumadin?? for a complete list of foods to be familiar with. Signs and Symptoms of adverse events to be reported include any unusual bleeding or bruising, increased pain swelling or sudden shortness of breath. In the event that you should experience any of the above, seek medical attention as needed. Future Appointments and Orders Future Appointments: Provider: Department: Dept Phone: Center: 06/19/2012 10:50 AM Damon Benitez MD [facility] [phone] None Joint Appt Health Question Three C Orth[facility] [phone] None Future Orders Please Complete By Expires REFERRAL TO ANTICOAGULATION MONITORING [[id number] Custom] Process Instructions: If no progress note charted, please enter Clinical details in comments. Scheduling Instructions: Comments: Questions: Responses: Responsible Group [facility] Reason for referral Monitor INR and dose Coumadin Risk Factors: BRIDGE patient on Lovenox 40 mg daily until INR GREATER THAN 2.5, then Coumadin only Next due INR 05/19/2012 INR Goal 2.0-3.0 Target End Date 08/15/2012 Referral to Home Health [[id number] CPT(R)] Process Instructions: Scheduling Instructions: Comments: [facility]. PHONE: [phone] FAX: [phone] Home care orders for Total Hip Replacements: RN: 1. Draw PT/INR as follows: per orders- Please START on Tuesday, May 19!! For week discharged: If d/c is Tuesday, do Tuesday and Tuesday; If d/c is Tuesday, do Tuesday and Tuesday; If d/c os Tuesday, do only is Ok Thereafter, PT/INR: every Tuesday and x 4 weeks Point of care testing is acceptable to obtain results PT/INR results to be called to the following: [facility] Orthopedic anticoagulation (Coumadin) clinic @ ; 2. Assess wound, pain management, medication effectiveness and management, elimination, nutrition 3. Staple or Suture removal in 10-14 days (approximately May 30) 4. Please check O2 sats and vitals at visits. Encourage patient to wear CPAP at night. PT: Continue rehab for balance, endurance, joint mobility, ROM, Strength, CARY protocol Questions: Responses: Agency name and contact information [facility] Patient location post discharge home What services are requested Physical Therapy Registered Nurse Start date Responsible MD post discharge contact info Provider Contact Information: Primary Care Provider: WILTON BONILLA DO [phone] Hospital Attending: Damon Benitez MD Department of Orthopaedic Surgery [phone] Signed: AMY BAEZ 05/18/2012 Plan of Care - Pratibha Bain RN - 05/17/2012 10:21 AM EDT Problem: Pain, Acute (Adult, Obstetric) Goal: Acute Pain: Acceptable Pain Control/Comfort Level - Pain, Acute (Adult, Obstetric) Patient aware to alert RN if pain is not being controlled with current pain medication. RN will monitor patient. Problem: Pressure Ulcer Risk (Using Fantasma Scale) (Adult, Obstetric) Goal: Pressure Ulcer Risk (using Fantasma Scale): Tissue Integrity Patients skin noted to be intact at this time and free of pressure ulcers. Patient able to independently turn themselves every 2 hours. RN will monitor patients skin. Initial Assessments - Kimberly Diaz OT - 05/17/2012 9:30 AM EDT Occupational Therapy Evaluation Patient profile: Sal Maravilla is a 62 y.o. male patient of Damon Lan MD, admitted on 05/16/2012 secondary for R CARY. Past Medical History Diagnosis Date ??? Allergy ??? Blood disorder ??? Breathing problem ??? Musculoskeletal disease ??? Hypertensive disease ??? Elevated cholesterol ??? Chronic pain Past Surgical History Procedure Date ??? Created by interface Colonoscopy Procedure Date: Jun 2009 ??? Created by interface Entered not Verified Procedure Date: 10/01/2010 ??? Cranio/maxillofacial surg unlisted ??? Total hip arthroplasty 05/16/2012 @TOTAL HIP ARTHROPLASTY performed by DAMON BENITEZ at [facility] MAIN OR Social History: Patient lives with his in a 2 story home, but will be staying on the 1st level. There are 4 steps into the home. Equipment: has FWW, commode, and walk in shower. Baseline ADL/Mobility: Independent with ADL???s and IADL???s Precautions/Special Considerations: Posterior hip precautions including no hip flexion >90 degrees, no hip adduction across the midline, and no hip internal rotation >10 degrees. Subjective: Is it supposed to hurt? Pt's comment while up on his feet. Objective: Seen today for OT evaluation. Cognitive Status/Behavior: alert, oriented to person, place, and time and affect appropriate to mood. Pt able to recall hip precautions with prompting. Vision & Perception: has glasses. Range of motion, strength, coordination: Hand dominance: right Bilateral UEs are within functional limitations S/p R CARY, hip motion limited by pain and recent surgery. L LE WFL Sensation: denies paresthesias Activities of Daily Living: Self-feeding: Independent with setup Upper and lower body self care and bathing: ?? Reviewed Pt's hip precautions with him. ?? Pt reports had hip surgery about 7 years ago. Pt states he will talk to her about whether she still has the adaptive equipment. He reports he doesn't usually wear socks; so the sock aide isn't a priority. ?? Discussed home set-up set-up, and how he could use commode as a shower seat if needed. Suggested he get a LH sponge/brush. Toileting: Catheter out. Toilet Transfer: Performs with CG A and cues for technique. Toilet Hygiene: Reports independence Has commode for home. Functional Mobility: Already OOB and sitting in a back chair and reporting discomfort with sitting in this chair. Obtained recliner for Pt. Sit to stand: minimal assist 1st time and then CG A following times with verbal cues for technique Ambulation: contact guard with FWW to and from the bathroom. Had Pt sit on toilet, as switched out chairs in his room. Stand to sit: contact guard and verbal cues for technique Balance: Good sitting and standing with CG A and use of a FWW. IADL???s: Assistance available to patient from his . His had the same surgery done in the past, and will be able to help. Endurance: Information taken from last recorded vitals in flowsheet. Last value Range last 8 hrs Heart Rate Heart Rate: 88 Heart Rate: [87-88] Blood Pressure BP: 128/75 mmHg BP: (128)/(75-76) SpO2 SpO2: 94 % SpO2: [93 %-94 %] Pt on room air. Pain: At rest: mild Location: R hip with sitting in the chair, but increasing 2' not finding chair comfortable With activity: moderate (5/10) Location: R hip with activity Skin: dressing intact on R hip Informed Consent: The patient agrees to and understands the OT treatment plan and goals. Education: patient have been educated on Role of occupational therapy/rehabilitation, Transfers, Assistive device/technique, ADL, Safety, Precautions/Protocol, Functional Mobility, Recommendations and Discharge planning and verbalizes understanding. Patient status, treatment, and mobility recommendations discussed with nursing. Assessment: Pt has been seen by OT for evaluation. Pt s/p R CARY via posterior approach. Pt presents with impaired ability to perform daily activities secondary to decreased awareness of his hip precautions, discomfort and decreased mobility.. Pt would benefit from ongoing OT services to maximize functional independence while hospitalized. Recommendations: Equipment needs at discharge: Axillary crutches Discharge Recommendations: anticipate home with and no follow up OT services after discharge. Goals: To be achieved by 05/18-05/19. 1. Patient will demonstrate knowledge of precautions independently during functional mobility and ADL's.. 2. Patient will perform be able to don/doff shoes and shorts/pants independently using adaptive equipment. 3. Patient to perform toilet transfers independently utilizing least restrictive device. 4. Patient will ambulate independently to/from the bathroom and household distances with FWW. Plan: Pt to be seen 1-2 more times for therapy including Role of occupational therapy/rehabilitation, Transfers, Assistive device/technique, Adaptive equipment training, ADL, Safety, Precautions/Protocol, Functional Mobility, Home Management, Recommendations and Discharge planning. Total time spent with patient: 35 minutes Total timed interventions: 0 minutes Pager: [phone] KIMBERLY DIAZ OT 05/17/2012 Occupational Therapy Rehabilitation Department Plan of Care - Vivien Suarez RN - 05/16/2012 4:30 PM EDT Problem: General Plan of Care - Adult/OB Goal: Plan of Care Reviewed With The patient and/or their chemical sales representative will communicate an understanding of their plan of care. Outcome: Present (see interventions, notes) Report received from RN in PACU at 1340. Pt arrived via bed at 1415. Awake, alert, and oriented x 3.Lungs clear sara. Abd soft. Denies n/v. Cody patent for clear yellow urine. Abductor pillow in place. Dressing to Right hip c/d/i. Some edema noted. +CMST +PP. PIV left arm with LR @ 125 ml/hr. Using Morphine STANDARDS ANALYST with releif at this time. Demonstrates correct use of STANDARDS ANALYST. Meds given per DEC. Admission done. Oriented to room and plan of care. Family at bedside. Offers no complaints at this time. Up in bed to dangle with mobility aide. Call richter within reach. Will monitor. OR Attestation - Damon Benitez - 05/16/2012 10:22 AM EDT Attestation: Case Date: 05/16/2012 I was present and I participated during the entire procedure (does not need to include opening and closing). DAMON BENITEZ MD 05/16/2012 I was the attending physician supervising the resident in the above care and I was present with the resident for the lane component(s) of the procedure and remained immediately available throughout the remainder. Op Note - Damon Benitez - 05/16/2012 9:52 AM EDT Operative Report Date of Surgery: 05/16/2012 Surgeon(s) and Role: Surgeon(s) and Role: * DAMON BENITEZ MD - Primary * BRIA GARCIA MD - Resident-Surgeon Chief Preoperative diagnosis: Right hip osteoarthritis Postoperative diagnosis: Right hip osteoarthritis Procedure Performed: Right total hip arthroplasty Anesthesia: General Fluids: 1500cc crystalloid + 1000cc hetastarch Estimated Blood Loss: 300cc Urine Output: 150cc Drains: Cody to gravity Specimen: Femoral head sent for surgical pathology Summary of Implants Used: Implant Name Type Inv. Item Serial No. Nut Processing Supervisor Lot No. LRB No. Used Action LINER,ACTBR,ALTRX,NTRL,[id number] ([id number]) (AUTOREQ) - [id number] IMPLANTS LINER,ACTBR,ALTRX,NTRL,[id number] ([id number]) (AUTOREQ) [employer] - [id number] Right 1 Implanted CUP,ACTBR,PNNCL,300,58MM ([id number]) (AUTOREQ) - [id number] IMPLANTS CUP,ACTBR,PNNCL,300,58MM ([id number])(AUTOREQ) [employer] Developer - [id number] Right 1 Implanted STEM,FMRL,+6MM,[id number] ([id number]) (AUTOREQ) - [id number] IMPLANTS STEM,FMRL,+6MM,[id number] ([id number]) (AUTOREQ) [employer] Developer - 3527 [id number] Right 1 Implanted SLEEVE,CTRNG,PXML,FMRL,16F,LRG ([id number]) (AUTOREQ) - [id number] IMPLANTS SLEEVE,CTRNG,PXML,FMRL,16F,LRG ([id number]) (AUTOREQ) [employer] Developer - [id number] Right 1 Implanted HEAD,FMRL,+6MM,11-13,36MM ([id number]) (AUTOREQ) - [id number] IMPLANTS HEAD,FMRL,+6MM,11-13,36MM ([id number]) (AUTOREQ) [facility] [id number] Right 1 Implanted Findings: Eburnated femoral head and acetabulum. Large anteroinferior osteophytes at the head-neck junction. Large floor osteophytes on the acetabulum. Complications: None noted. Indications: Sal Maravilla is a 62 y.o. male with Right hip osteoarthritis. Despite efforts at conservative management, the patient continues to have symptoms that are compromising to quality of life. After discussion of the risks and benefits of surgery, the patient gave informed consent to proceed with the above procedure. Description of the Procedure: The [facility] was [facility], where identity was confirmed, site marked, and consent reviewed. He was then brought to the operating room, where general anesthesia was administered and an endotracheal tube placed. A cody catheter was placed. Two grams of Cefazolin were administered within an hour of the start of procedure. The patient was then positioned left lateral decubitus on the operating room table. All bony prominences were well-padded. The right leg was prepped using chlorhexadine scrub, alcohol and duraprep and draped in the usual sterile fashion. A time-out was then held with all team members in the operating room agreeing upon the patient's identity, planned procedure, and operative site. Operative consent was again confirmed. An incision was then made extending approximately 10 cm proximal to the vastus ridge over the lateral aspect of the greater trochanter in line with the femur. Sharp dissection was carried down to the level of the iliotibial band. A Martinez was then used to remove any excess fat. A knife was then used to incise the iliotibial band, and a Charnley bow retractor used to retract the iliotibial band. A [place] was then placed in the anterior third of the abductor musculature, and anterolateral approach of the hip was performed creating a medial peel of the abductor musculature. This was carried up the superior aspect of the femoral neck to the labrum and extending over the anterior aspect of the femur. Distally, it was carried to the level of the vastus ridge. A martinez was placed in the anterior aspect of the capsule to aid with tensioning the capsule for the dissection. The hip was then abducted, flexed, and externally rotated and the hip easily dislocated. An oscillating saw was then used to perform femoral neck osteotomy. This was created in an L-shape in line with the inferior aspect of the femoral head one finger breadth above the lesser troch and then parallel to the greater trochanter. Once the osteotomy had been performed, the femoral head was sized and felt to be 57 mm. Next, we turned our attention to the acetabulum, where a knife was used to excise the labrum. A double-handed curette was then used to remove any remaining soft tissue from within the acetabulum. We then placed a size 57 acetabular reamer into the acetabulum and felt this to have a good fit. We then reamed down to good bleeding bone, which was flush with the true floor of the acetabulum. A curette was used to removed all floor osteophytes. The size 58 acetabular trial was placed in the acetabulum and felt to have good fit. We then thoroughly irrigated the hip. A size 58 acetabular shell was then malleted into place. The 58/36 neutral poly liner was then inserted into the cup and seated using a mall et and ball impactor. The poly was confirmed to be seated under direct visualization. Next, we turned our attention to the femur, where femoral neck elevators were used to elevate the femur from the wound. A barrel osteotome was used on the medial aspect of the greater trochanter to provide entry to the center of the femoral canal. An Arrow and T-handle reamer were then used to enter the intramedullary canal. We then began sequentially reaming the femoral canal with a size 9 up to a size 11.5. We then used the size 16 proximal reamer appropriately sized proximal reamer to correspond with our distal reamer size and reamed the proximal canal to a size F. We then used the calcar millerto mill to a Large. A 16F large proximal sleeve was then malleted into place. The 16-11 trial femoral stem with a 36+6 standard neck was then placed with a 36mm +0 trial femoral head. The hip was then reduced and brought through full range of motion and found to dislocate in extreme flexion and adduction. The head was changed to a +6 and reduced and now found to be stable in all provocative maneuvers. The hip was then once again dislocated. The trial femoral stem and proximal sleeve were removed. We then thoroughly irrigated the wound and placed our final components: a 16-11 stem with a 36+6 standard neck, a 16F Large sleeve and 36mm +6 head. The hip was once again reduced and brought through afull range of motion and again found to be stable. We then thoroughly irrigated the hip once again. The joint capsule was closed using #5 Ethibond. Three tunnels were then created in the lateral aspectof the greater trochanter, through which #5 Ethibonds were passed in a transosseous fashion to repair the medial sleeve of tissue created during our anterior approach. This was then oversewn using #5 Ethibond in a jhvfoo-bl-iztwa fashion. The hip was then irrigated. We then closed the iliotibial band using 0 Vicryl. The hip was once again irrigated. 0 and 2-0 Vicryl were then used to close the deep and subcutaneoustissues. 3-0 nylon was used to close the skin in a simple interrupted fashion. A sterile Mepilex silver dresing was then placed over the wound. The patient was then placed into an abduction pillow, transferred to the hospital stretcher, put on SCDs and DAMION hose. He was then brought to the postanesthesia care unit in stable condition. All needle, sponge, and instrument counts were correct. There were no apparent complications. Dr. Benitez was present for all integral portions of the case. Brief Op Note - Damon Benitez - 05/16/2012 9:16 AM EDT Brief Operative Note Patient Name: Sal Maravilla : [id number] MR#: [id number] Case Date: 05/16/2012 Surgeon: Surgeon(s) and Role: * DAMON BENITEZ MD - Primary * BRIA GARCIA MD - Resident-Surgeon Chief Preoperative diagnosis: djd Postoperative diagnosis: djd Procedure(s): @TOTAL HIP ARTHROPLASTY MODIFIER S-ROM FEMORAL STEM DEPUY MODIFIER PINNACLE ACETABULUM DEPUY Anesthesia: General Findings:djd Complications:none Fluids: 1500cc 1000hts Estimated Blood Loss: 300cc Drains:cody 150cc Implant Name Type Inv. Item Serial No. Nut Processing Supervisor Lot No. LRB No. Used Action LINER,ACTBR,ALTRX,NTRL,[id number] ([id number]) (AUTOREQ) - [id number] IMPLANTS LINER,ACTBR,ALTRX,NTRL,[id number] ([id number]) (AUTOREQ) [employer] Developer - [id number] Right 1 Implanted CUP,ACTBR,PNNCL,300,58MM ([id number]) (AUTOREQ) - [id number] IMPLANTS CUP,ACTBR,PNNCL,300,58MM ([id number])(AUTOREQ) [employer] Developer - [id number] Right 1 Implanted STEM,FMRL,+6MM,[id number] ([id number]) (AUTOREQ) - [id number] IMPLANTS STEM,FMRL,+6MM,[id number] ([id number]) (AUTOREQ) [employer] Developer - 3527 [id number] Right 1 Implanted SLEEVE,CTRNG,PXML,FMRL,16F,LRG ([id number]) (AUTOREQ) - [id number] IMPLANTS SLEEVE,CTRNG,PXML,FMRL,16F,LRG ([id number]) (AUTOREQ) [employer] Developer - 3527 [id number] Right 1 Implanted HEAD,FMRL,+6MM,11-13,36MM ([id number]) (AUTOREQ) - [id number] IMPLANTS HEAD,FMRL,+6MM,11-13,36MM ([id number]) (AUTOREQ) [employer] Developer - 3527 [id number] Right 1 Implanted Specimen femoral head COUMADIN 3 months with lmwh bridge untiil inr 2.5 Disposition: awakened from anesthesia, extubated and taken to the recovery room in a stable condition, having suffered no apparent untoward event. Condition: doing well without problems (Please see the Surgical Encounter Summary for any Implant and Specimen details pertinent to this patient.) Miscellaneous - Provider, Yumi - 05/16/2012 7:47 AM EDT documented in this encounter Plan of Treatment Scheduled Referrals Name Type Priority Associated Order Schedule Diagnoses REFERRAL TO Outpatient Routine DJD (degenerative Ordered: ANTICOAGULATION Referral joint disease) of 012 MONITORING hip documented as of this encounter Procedures Procedure Name Priority Date/Time Associated Comments Diagnosis IMPLANTABLE DEVICES 05/19/2012 11:13 Resu lts for this SCAN AM EDT procedure are i n the results section. POCT GLUCOSE Routine 05/18/2012 11:24 Results for this AM EDT procedure are i n the results section. POCT GLUCOSE Routine 05/18/2012 6:36 AM Results f or this EDT procedure are i n the results section. DIFFERENTIAL, Routine 05/18/2012 3:48 AM Results for this AUTOMATED EDT procedure are i n the results section. PROTHROMBIN TIME Routine 05/18/2012 3:48 AM Resul ts for this EDT procedure are i n the results section. CBC (WITH DIFF) Routine 05/18/2012 3:48 AM Result s for this EDT procedure are i n the results section. BASIC METABOLIC PANEL Routine 05/18/2012 3:48 AM Results for this (NON-FASTING) EDT procedure are in the results section. POCT GLUCOSE Routine 05/17/2012 9:08 PM Results f or this EDT procedure are i n the results section. POCT GLUCOSE Routine 05/17/2012 4:35 PM Results f or this EDT procedure are i n the results section. POCT GLUCOSE Routine 05/17/2012 12:02 Results for this PM EDT procedure are i n the results section. POCT GLUCOSE Routine 05/17/2012 5:39 AM Results f or this EDT procedure are i n the results section. DIFFERENTIAL, Routine 05/17/2012 4:41 AM Results for this AUTOMATED EDT procedure are i n the results section. PROTHROMBIN TIME Routine 05/17/2012 4:41 AM Resul ts for this EDT procedure are i n the results section. CBC (WITH DIFF) Routine 05/17/2012 4:41 AM Result s for this EDT procedure are i n the results section. HEMOGLOBIN A1C Routine 05/17/2012 4:41 AM Results for this EDT procedure are i n the results section. BASIC METABOLIC PANEL Routine 05/17/2012 4:41 AM Results for this (NON-FASTING) EDT procedure are in the results section. POCT GLUCOSE Routine 05/16/2012 9:15 PM Results f or this EDT procedure are i n the results section. POCT GLUCOSE Routine 05/16/2012 4:50 PM Results f or this EDT procedure are i n the results section. PROTHROMBIN TIME Routine 05/16/2012 4:24 PM Resul ts for this EDT procedure are i n the results section. XR ONE HIP- 2 VIEWS Routine 05/16/2012 11:02 Resu lts for this AM EDT procedure are i n the results section. XR PELVIS Routine 05/16/2012 11:01 Results for this AM EDT procedure are i n the results section. POCT GLUCOSE Routine 05/16/2012 10:16 Results for this AM EDT procedure are i n the results section. SURGICAL PATHOLOGY Routine 05/16/2012 9:53 AM Res ults for this REPORT EDT procedure are i n the results section. SPECIMEN TO PATHOLOGY Routine 05/16/2012 8:13 AM Results for this EDT procedure are i n the results section. MODIFIER PINNACLE 05/16/2012 7:21 AM DJD (degenerative ACETABULUM DEPUY EDT joint disease) of hip MODIFIER S-ROM 05/16/2012 7:21 AM DJD (degenerative FEMORAL STEM DEPUY EDT joint disease) of hip TOTAL HIP 05/16/2012 7:21 AM DJD (degenerative ARTHROPLASTY - EDT joint disease) of POSTERIOR (WRVU hip 20.72) documented in this encounter Results SCAN DOC: IMPLANTABLE DEVICES (05/19/2012 11:13 AM EDT) Narrative 05/19/2012 11:13 AM EDT Procedure Note Provider, Scanning - 05/19/2012 11:13 AM EDT Scanning Provider MEDIA MGR SCAN EXT ORDR/RSLT POCT GLUCOSE LAB USE ONLY (05/18/2012 11:24 AM EDT) P athologist Signature POC Glucose 152 60 - 199 CERNER mg/dL [facility] Comment: Supplemental ranges: <110 mg/dL before meals <200 mg/dL all other times of the day Specimen Anatomical Collection Method Collection Time Receive d Time (Source) Location / / Volume Laterality Blood specimen 05/18/2012 11:24 2 (specimen) AM EDT 11:24 AM EDT Damon Benitez MD POINT OF CARE TEST ORDERABLE S Performing Organization Address City/State/[place] [address] CERNER MILLENNIUM POCT GLUCOSE LAB USE ONLY (05/18/2012 6:36 AM EDT) P athologist Signature POC Glucose 122 60 - 199 CERNER mg/dL [facility] Comment: Supplemental ranges: <110 mg/dL before meals <200 mg/dL all other times of the day Specimen Anatomical Collection Method Collection Time Receive d Time (Source) Location / / Volume Laterality Blood specimen 05/18/2012 6:36 AM 012 6:36 (specimen) EDT AM EDT Damon Benitez MD POINT OF CARE TEST ORDERABLE S Performing Organization Address City/State/[place] [address] CERNER MILLENNIUM (ABNORMAL) DIFFERENTIAL, AUTOMATED (05/18/2012 3:48 AM EDT) Patholo gist Method Time Signature Neutrophils % 57.5 34.0 - CERNER 71.0 % [facility] Neutr Abs (ANC) 5.28 1.50 - CERNER 6.30 MILLEN[facility]UM x10(3)/mc L Lymphocytes % 22.6 19.0 - CERNER 53.0 % [facility] Lymphocytes Abs 2.1 1.0 - 3.6 CERNER x10(3)/mc [facility]EN[facility]UM L Monocytes % 17.2 (H) 4.0 - CERNER 13.0 % [facility] Monocyte Abs 1.6 (H) 0.2 - 1.0 CERNER x10(3)/mc [facility]UM L Eosinophils % 2.3 0.0 - 7.0 CERNER % [facility] Eosinophils Abs 0.2 0.0 - 0.5 CERNER x10(3)/mc [facility]ILLENNIUM L Basophils % 0.1 0.0 - 2.0 CERNER % [facility] Basophils Abs 0.0 0.0 - 0.2 CERNER x10(3)/mc [facility] L Immature Gran % 0.30 0.00 - CERNER 0.66 % [facility] Comment: Immature granulocytes(IG's)percentage an d absolute count will include metamyelocytes, myelocytes, and promyelo cytes. Blood smears from CBCs yielding IG's will be scanned manually for concor dance. If this scan disagrees with the automated IG or if promyelocytes are not ed, a manual differential will be performed. Lily Gran Abs 0.03 0.00 - 0.05 x10(3)/mcL CER NER MILLENNIUM Specimen Anatomical Collection Method Collection Time Receive d Time (Source) Location / / Volume Laterality Blood specimen 05/18/2012 3:48 AM 012 3:59 (specimen) EDT AM EDT Damon Benitez MD HEMATOLOGY ORDERABLES Performing Organization Address City/[facility]/ZIP Code Phon e Number [address] [facility] (ABNORMAL) Prothrombin Time (05/18/2012 3:48 AM EDT) P athologist Signature PT 15.0 (H) 11.9 - 14.7 CERNER sec [facility] Comment: [facility] Transfusion Committee Guidelines: I NR less than 2.0, PTT less than OR equal to 43.5 seconds, or Fibrinogen gre ater than or equal to 100 mg/dl indicate adequate procoagulant activity for hemostasis in patients without underlying bleeding disorders. INR 1.2 (H) 0.9 - 1.1 [facility] Specimen Anatomical Collection Method Collection Time Receive d Time (Source) Location / / Volume Laterality Blood specimen 05/18/2012 3:48 AM 012 3:59 (specimen) EDT AM EDT Resulting Agency Comment Spec In Lab Damon Benitez MD HEMATOLOGY ORDERABLES Performing Organization Address City/[facility]/[place] [address] [facility] (ABNORMAL) Basic Metabolic Panel (non-fasting) (05/18/2012 3:48 AM EDT) P athologist Signature Glucose Lvl 131 60 - 199 [facility]/dL [facility] Comment: Diabetes: >=200 mg/dL plus symp toms BUN 16 10 - 20 mg/dL [facility] Creatinine 0.86 0.80 - 1.50 mg/dL CERNER [facility]ILL [facility] Comment: Please note that the pediatric reference intervals supplied above were not validated at [facility]. Results from pediatri c patients should be interpreted in conjunction to the patient's age, height and muscle mass. Sodium 138 135 - 145 mmol/L CERNER BELKIS NIUM Potassium 3.4 (L) 3.5 - 5.0 mmol/L CERNER BELKIS NIUM Comment: result rechecked-[facility] Please note: ??Patients with WBC >100,00 0 may have falsely elevated Potassium levels. ??For accurate Potassium quantif ication in these patients send serum separator tube (gold top) for subsequent determinations. ??Contact the Clinical Chemistry Laboratory if there are any qu estions. Chloride 100 98 - 107 mmol/L CERNER MILLENN IUM CO2 30 22 - 31 mmol/L CERNER MILLENNI UM Anion Gap 8 5 - 15 mmol/L CERNER MILLENNIU M Calcium 7.8 (L) 8.5 - 10.5 mg/dL CERNER BELKIS NIUM [...] Juan Carlos NA, Ross AK, Isidro TS, Judith AD, Herminio SHREYA. Relative performance of the MDRD and CKD-EPI equa tions for estimating glomerular filtration rate among patients with vari ed clinical presentations. Clin J Am Soc Nephrol;6:1963-72. Specimen Anatomical Collection Method Collection Time Receive d Time (Source) Location / / Volume Laterality Blood specimen 05/18/2012 3:48 AM 012 3:59 (specimen) EDT AM EDT Resulting Agency Comment Spec In Lab Damon Benitez MD CHEMISTRY ORDERABLES Performing Organization Address City/State/ZIP Code Phon e Number [place] [id number] CERNER MILLENNIUM (ABNORMAL) CBC (with Diff) (05/18/2012 3:48 AM EDT) P athologist Signature WBC 9.2 4.0 - 10.0 CERNER x10(3)/mcL [facility] RBC 3.83 (L) 4.63 - CERNER 6.08 MILL[facility]NIUM x10(6)/mcL Hemoglobin 11.8 (L) 13.7 - CERNER 17.5 gm/dL [facility] Hematocrit 35.0 (L) 40.0 - CERNER 51.0 % [facility]UM MCV 91.4 79.0 - CERNER 92.0 fL [facility]NIUM MCH 30.8 25.6 - CERNER 32.2 pg MILLENNIUM MCHC 33.7 32.0 - CERNER 36.5 gm/dL [facility] Platelets 141 (L) 145 - 370 CERNER x10(3)/mcL [facility]ENNIUM RDWSD 43.6 35.0 - CERNER 46.0 fL [facility] RDWCV 13.1 10.9 - CERNER 14.4 % [facility] MPV 10.6 9.0 - 12.0 CERNER fL [facility] Specimen Anatomical Collection Method Collection Time Receive d Time (Source) Location / / Volume Laterality Blood specimen 05/18/2012 3:48 AM 012 3:59 (specimen) EDT AM EDT Resulting Agency Comment Spec In Lab Damon Beintez MD HEMATOLOGY ORDERABLES Performing Organization Address City/State/ZIP Code Phon e Number [address] CERNER MILLENNIUM POCT GLUCOSE LAB USE ONLY (05/17/2012 9:08 PM EDT) athologist Signature POC Glucose 118 60 - 199 CERNER mg/dL [facility] Comment: Supplemental ranges: <110 mg/dL before meals <200 mg/dL all other times of the day Specimen Anatomical Collection Method Collection Time Receive d Time (Source) Location / / Volume Laterality Blood specimen 05/17/2012 9:08 PM 012 9:08 (specimen) EDT PM EDT Damon Benitez MD POINT OF CARE TEST ORDERABLE S Performing Organization Address City/State/ZIP Code Phon e Number [address] CERNER MILLENNIUM POCT GLUCOSE LAB USE ONLY (05/17/2012 4:35 PM EDT) athologist Signature POC Glucose 123 60 - 199 CERNER mg/dL [facility] Comment: Supplemental ranges: <110 mg/dL before meals <200 mg/dL all other times of the day Specimen Anatomical Collection Method Collection Time Receive d Time (Source) Location / / Volume Laterality Blood specimen 05/17/2012 4:35 PM 012 4:35 (specimen) EDT PM EDT Damon Benitez MD POINT OF CARE TEST ORDERABLE S Performing Organization Address City/State/ZIP Code Phon e Number [address] CERNER MILLENNIUM POCT GLUCOSE LAB USE ONLY (05/17/2012 12:02 PM EDT) athologist Signature POC Glucose 135 60 - 199 CERNER mg/dL [facility] Comment: Supplemental ranges: <110 mg/dL before meals <200 mg/dL all other times of the day Specimen Anatomical Collection Method Collection Time Receive d Time (Source) Location / / Volume Laterality Blood specimen 05/17/2012 12:02 2 (specimen) PM EDT 12:02 PM EDT Damon Benitez MD POINT OF CARE TEST ORDERABLE S Performing Organization Address City/[facility]/ZIP Code Phon e Number [address] CERNER MILLENNIUM POCT GLUCOSE LAB USE ONLY (05/17/2012 5:39 AM EDT) athologist Signature POC Glucose 138 60 - 199 CERNER mg/dL [facility] Comment: Supplemental ranges: <110 mg/dL before meals <200 mg/dL all other times of the day Specimen Anatomical Collection Method Collection Time Receive d Time (Source) Location / / Volume Laterality Blood specimen 05/17/2012 5:39 AM 012 5:39 (specimen) EDT AM EDT Damon Benitez MD POINT OF CARE TEST ORDERABLE S Performing Organization Address City/[facility]/ZIP Code Phon e Number [address] CERNER MILLENNIUM HEMOGLOBIN A1C (05/17/2012 4:41 AM EDT) P athologist Signature Hemoglobin A1C 5.8 4.3 - 6.1 CERNER % MILLENNIUM Est Avg Gluc 120 mg/dL CERNER MILLENNIUM Comment: eAG equivalents for HbA1c percentages: HbA1c(%) ?eAG(mg/dL) 6.0 ?126 6.5 ?140 7.0 ?154 7.5 ?169 8.0 ?183 8.5 ?197 9.0 ?212 9.5 ?226 10.0 ? 240 Limitations: The eAG calculation has not been validated on women, individuals below 18 years old and above 70 years old, and individuals with hemoglobinopathies. Additional resources are available on [facility] ADA website: ??http://professional.diabetes.org/gluc osecalculator.aspx Reference: Fox MARISCAL, Nasra J, Luzmaria R, et al. ??Tr anslating the A1C assay into estimated average glucose values. ??Diabetes Care 2008:31(8):4762-5026. Specimen Anatomical Collection Method Collection Time Receive d Time (Source) Location / / Volume Laterality Blood specimen 05/17/2012 4:41 AM 012 (specimen) EDT 11:40 AM EDT Resulting Agency Comment Spec In Lab Damon Benitez MD CHEMISTRY ORDERABLES Performing Organization Address City/State/ZIP Code Phon e Number [place] [id number] CERNER MILLENNIUM (ABNORMAL) DIFFERENTIAL, AUTOMATED (05/17/2012 4:41 AM EDT) [facility] Method Time Signature Neutrophils % 65.2 34.0 - CERNER 71.0 % MILLENNIUM Neutr Abs (ANC) 4.96 1.50 - CERNER 6.30 MILLENNIUM x10(3)/mc L Lymphocytes % 16.8 (L) 19.0 - CERNER 53.0 % MILLENNIUM Lymphocytes Abs 1.3 1.0 - 3.6 CERNER x10(3)/mc MILLENNIUM L Monocytes % 17.8 (H) 4.0 - CERNER 13.0 % MILLENNIUM Monocyte Abs 1.4 (H) 0.2 - 1.0 CERNER x10(3)/mc MILLENNIUM L Eosinophils % 0.0 0.0 - 7.0 CERNER % MILLENNIUM Eosinophils Abs 0.0 0.0 - 0.5 CERNER x10(3)/mc MILLENNIUM L Basophils % 0.1 0.0 - 2.0 CERNER % MILLENNIUM Basophils Abs 0.0 0.0 - 0.2 CERNER x10(3)/mc MILLENNIUM L Immature Gran % 0.10 0.00 - CERNER [...] Location / / Volume Laterality Blood specimen 05/17/2012 4:41 AM 012 4:48 (specimen) EDT AM EDT Damon Beintez MD HEMATOLOGY ORDERABLES Performing Organization Address City/[facility]/[place] [address] [facility] MILLENNIUM Prothrombin Time (05/17/2012 4:41 AM EDT) athologist Signature PT 14.6 11.9 - 14.7 CERNER sec MILLENNIUM Comment: [facility] Transfusion Committee Guidelines: I NR less than 2.0, PTT less than OR equal to 43.5 seconds, or Fibrinogen gre ater than or equal to 100 mg/dl indicate adequate procoagulant activity for hemostasis in patients without underlying bleeding disorders. INR 1.1 0.9 - 1.1 CERNER MILLENNIUM Specimen Anatomical Collection Method Collection Time Receive d Time (Source) Location / / Volume Laterality Blood specimen 05/17/2012 4:41 AM 012 4:48 (specimen) EDT AM EDT Resulting Agency Comment Spec In Lab Damon Benitez MD HEMATOLOGY ORDERABLES Performing Organization Address City/[facility]/ZIP Code Phon e Number [address] [facility] MILLENNIUM (ABNORMAL) Basic Metabolic Panel (non-fasting) (05/17/2012 4:41 AM EDT) P athologist Signature Glucose Lvl 133 60 - 199 CERNER mg/dL MILLENNIUM Comment: Diabetes: >=200 mg/dL plus symp toms BUN 14 10 - 20 mg/dL CERNER MILLENNIU M Creatinine 0.88 0.80 - 1.50 mg/dL CERNER MILL ENNIUM Comment: Please note that the pediatric reference intervals supplied above were not validated at [facility]. Results from pediatri c patients should be interpreted in conjunction to the patient's age, height and muscle mass. Sodium 140 135 - 145 mmol/L CERNER BELKIS NIUM Potassium 4.6 3.5 - 5.0 mmol/L CERNER BELKIS NIUM Comment: Please note: ??Patients with WBC >100,00 0 may have falsely elevated Potassium levels. ??For accurate Potassium quantif ication in these patients send serum separator tube (gold top) for subsequent determinations. ??Contact the Clinical Chemistry Laboratory if there are any qu estions. Chloride 104 98 - 107 mmol/L CERNER MILLENN IUM CO2 30 22 - 31 mmol/L CERNER MILLENNI UM Anion Gap 6 5 - 15 mmol/L CERNER MILLENNIU M Calcium 7.9 (L) 8.5 - 10.5 mg/dL CERNER BELKIS NIUM [...] Juan Carlos NA, Ross AK, Isidro TS, Judith AD, Herminio SHREYA. Relative performance of the MDRD and CKD-EPI equa tions for estimating glomerular filtration rate among patients with vari ed clinical presentations. Clin J Am Soc Nephrol;6:1963-72. Specimen Anatomical Collection Method Collection Time Receive d Time (Source) Location / / Volume Laterality Blood specimen 05/17/2012 4:41 AM 012 4:48 (specimen) EDT AM EDT Resulting Agency Comment Spec In Lab Damon Benitez MD CHEMISTRY ORDERABLES Performing Organization Address City/State/[place] [address] CERNER MILLENNIUM (ABNORMAL) CBC (with Diff) (05/17/2012 4:41 AM EDT) P athologist Signature WBC 7.6 4.0 - 10.0 CERNER x10(3)/mcL MILLENNIUM RBC 4.10 (L) 4.63 - CERNER 6.08 MILLENNIUM x10(6)/mcL Hemoglobin 12.8 (L) 13.7 - CERNER 17.5 gm/dL MILLENNIUM Hematocrit 37.4 (L) 40.0 - CERNER 51.0 % MILLENNIUM MCV 91.2 79.0 - CERNER 92.0 fL MILLENNIUM MCH 31.2 25.6 - CERNER 32.2 pg MILLENNIUM MCHC 34.2 32.0 - CERNER 36.5 gm/dL MILLENNIUM Platelets 154 145 - 370 CERNER x10(3)/mcL MILLENNIUM RDWSD 43.5 35.0 - CERNER 46.0 fL MILLENNIUM RDWCV 13.1 10.9 - CERNER 14.4 % MILLENNIUM MPV 10.3 9.0 - 12.0 CERNER fL [facility] Specimen Anatomical Collection Method Collection Time Receive d Time (Source) Location / / Volume Laterality Blood specimen 05/17/2012 4:41 AM 012 4:48 (specimen) EDT AM EDT Resulting Agency Comment Spec In Lab Damon Benitez MD HEMATOLOGY ORDERABLES Performing Organization Address City/State/ZIP Code Phon e Number [address] [facility] POCT GLUCOSE LAB USE ONLY (05/16/2012 9:15 PM EDT) P athologist Signature POC Glucose 157 60 - 199 CERNER mg/dL [facility] Comment: Supplemental ranges: <110 mg/dL before meals <200 mg/dL all other times of the day Specimen Anatomical Collection Method Collection Time Receive d Time (Source) Location / / Volume Laterality Blood specimen 05/16/2012 9:15 PM 012 9:15 (specimen) EDT PM EDT Damon Benitez MD POINT OF CARE TEST ORDERABLE S Performing Organization Address City/State/ZIP Code Phon e Number [address] [facility] POCT GLUCOSE LAB USE ONLY (05/16/2012 4:50 PM EDT) P athologist Signature POC Glucose 145 60 - 199 CERNER mg/dL [facility] Comment: Supplemental ranges: <110 mg/dL before meals <200 mg/dL all other times of the day Specimen Anatomical Collection Method Collection Time Receive d Time (Source) Location / / Volume Laterality Blood specimen 05/16/2012 4:50 PM 012 4:50 (specimen) EDT PM EDT Damon Benitez MD POINT OF CARE TEST ORDERABLE S Performing Organization Address City/State/[place] [address] [facility] Peer5 Prothrombin Time (05/16/2012 4:24 PM EDT) P athologist Signature PT 14.5 11.9 - 14.7 [facility] Comment: [facility] Transfusion Committee Guidelines: I NR less than 2.0, PTT less than OR equal to 43.5 seconds, or Fibrinogen gre ater than or equal to 100 mg/dl indicate adequate procoagulant activity for hemostasis in patients without underlying bleeding disorders. INR 1.1 0.9 - 1.1 [facility] Peer5 Specimen Anatomical Collection Method Collection Time Receive d Time (Source) Location / / Volume Laterality Blood specimen 05/16/2012 4:24 PM 012 4:31 (specimen) EDT PM EDT Resulting Agency Comment Spec In Lab Damon Benitez MD HEMATOLOGY ORDERABLES Performing Organization Address City/State/ZIP Code Phon e Number [address] [facility] Peer[facility] XR one hip- 2 views (05/16/2012 11:02 AM EDT) Anatomical Region Laterality Modality Hip N/A Radiographic Imaging Specimen (Source) Anatomical Collection Method Collection Time Re ceived Time Location / / Volume Laterality 05/16/2012 11:02 AM EDT Narrative 05/16/2012 11:31 AM EDT Examination HIP MIN 2 VIEW/XPORT Clinical History s/p hip arthroplasty Comparison 05/16/2012 and 03/02/2012. Technique AP view of the right hip obtained portab ly and cross-table lateral exam obtained portably right hand. Findings There is been a right total hip arthropl asty. ??The acetabular and femoral components appear well seated. ??No piero prosthetic fracture is seen. Greater trochanteric fragment Is in edinson omic position. Impression No evidence of complication Procedure Note Kailash Berrios MD - 05/16/2012Formatt ing of this note might be different from the original. Examination HIP MIN 2 VIEW/XPORT Clinical History s/p hip arthroplasty Comparison 05/16/2012 and 03/02/2012. Technique AP view of the right hip obtained portab ly and cross-table lateral exam obtained portably right hand. Findings There is been a right total hip arthropl asty. The acetabular and femoral components appear well seated. No peripr osthetic fracture is seen. Greater trochanteric fragment Is in edinson omic position. Impression No evidence of complication Damon Benitez MD IMG DX ORDERABLES XR pelvis 1 or 2 views (05/16/2012 11:01 AM EDT) Anatomical Region Laterality Modality Pelvis N/A Radiographic Imaging Specimen (Source) Anatomical Collection Method Collection Time Re ceived Time Location / / Volume Laterality 05/16/2012 11:01 AM EDT Narrative 05/16/2012 11:29 AM EDT Examination PELVIS 1 OR 2 VIEWS/XPORT Clinical History s/p hip arthroplasty Comparison 03/02/2012. Technique AP view of the pelvis obtained portably in Pac. Findings There has been interval right total hip arthroplasty. ??No periprosthetic fracture is seen. ??Alignment appears in tact. ??Acetabular and femoral components appear well-seated. Impression Interval right total hip arthroplasty. Procedure Note Kailash Berrios MD - 05/16/2012Formatt ing of this note might be different from the original. Examination PELVIS 1 OR 2 VIEWS/XPORT Clinical History s/p hip arthroplasty Comparison 03/02/2012. Technique AP view of the pelvis obtained portably in Pac. Findings There has been interval right total hip arthroplasty. No periprosthetic fracture is seen. Alignment appears inta ct. Acetabular and femoral components appear well-seated. Impression Interval right total hip arthroplasty. Damon Benitez MD IMG DX ORDERABLES POCT GLUCOSE LAB USE ONLY (05/16/2012 10:16 AM EDT) P athologist Signature POC Glucose 123 60 - [address] [facility] mg/dL [facility] Comment: Supplemental ranges: <110 mg/dL before meals <200 mg/dL all other times of the day Specimen Anatomical Collection Method Collection Time Receive d Time (Source) Location / / Volume Laterality Blood specimen 05/16/2012 10:16 2 (specimen) AM EDT 10:16 AM EDT Damon Benitez MD POINT OF CARE TEST ORDERABLE S Performing Organization Address City/State/[place] [address] [facility] SURGICAL PATHOLOGY REPORT (05/16/2012 9:53 AM EDT) [facility] Method Time Signature Surgical CERNER Pathology ? [facility] Report ? Provider: ?? DAMON BENITEZ ?? Pt. Name: ?? SAL MARAVILLA ? Acc #: ?[id number] ?Pt. MRN: ?[id number] ? Col Date: ?? 2 ? /Sex: ?1950,(62 years),Male ? Rec Date: ?? 05/16/2012 ? LOC: ?3WST ? SURGICAL PATHOLOGY ? ---Pathologic Diagnosis--- ? Articular bone and soft tissue showing osteoarthritis , ? right femoral head. ?Gross surgical pathology examination. ? CR-0 ? 05/17/12 ? AJE ? 05/18/12 Verified by: ? Alfonso Varma MD ? Pathologist ? (Electronic Si gnature) ? The attending pathologist whose signature appears o n this report has ? reviewed all diagnostic slides and has edited the chanell ss and/or ? microscopic portion of the report in rendering the fi nal pathologic ? diagnosis. ? ---Gross Description--- ? Labeled/Fixative: ? Right femoral head, fresh. ? Quantity/Size: ?One femoral head, 6.5 x 6.5 x 6.0 cm. ? Tissue Description: ? ? Intact femoral head with up to 3.0 cm of attached ? neck. ?Margin: ?Smooth, red, trabecular bone. ?Articular surface: [place], granular, and pitted. ?Eburnation: ?Present. ?Osteophytes: ? Present. ?Cut surface: ? Yellow, trabecular bone. ?Subchondral Sclerosis: ??Present. ?Subchondral Cysts: ?Present. ? Sections/Processing: ??No sections are submitted. ??a je/SNS ? ---Clinical Information--- ? Specimen Submitted: ? A - Right femoral head ? Clinical History/Diagnosis: ? DJD Specimen (Source) Anatomical Collection Method Collection Time Re ceived Time Location / / Volume Laterality 05/16/2012 9:53 AM EDT Damon Benitez MD PATHOLOGY/CYTOLOGY ORDERABLE S Performing Organization Address City/[facility]/[place] [address] CERNER MILLENNIUM Specimen to Pathology (surgical or derm) (05/16/2012 8:13 AM EDT) Specimen Anatomical Collection Method Collection Time Receive d Time (Source) Location / / Volume Laterality AP Specimen 05/16/2012 8:13 AM 2 8:13 EDT AM EDT Narrative CERNER MILLENNIUM - 05/16/2012 8:13 AM E DT Specimen requisition ordered. ??Separate Pathology report to follow Damon Benitez MD PATHOLOGY/CYTOLOGY ORDERABLE S Performing Organization Address City/[facility]/[place] [address] CERNER MILLENNIUM documented in this encounter Visit Diagnoses Diagnosis DJD (degenerative joint disease) of hip - Primary Osteoarthrosis, unspecified whether gene ralized or localized, pelvic region and thigh CIRO (obstructive sleep apnea)- on CPAP i n past Obstructive sleep apnea (adult) (pediatr ic) Elevated blood sugars- minimal Other abnormal glucose DJD (degenerative joint disease) of hip Osteoarthrosis, unspecified whether gene ralized or localized, pelvic region and thigh documented in this encounter Administered Medications Inactive Administered Medications - up to 3 most recent administrations Medication Order MAR Action Action Date Dose Rate Site ceFAZolin (ANCEF) 2g in dextrose 5% Given 05/16/2012 7:33 AM EDT 2 g 100mL 2 g, Intravenous, ONCE, 1 dose, On Tue05/16/12 at 0700, Administer over 30 Minutes, To be administered upon arrival to the OR within one hour prior to incision., Day of Surgery (Day of Procedure), Indication for (Active or Suspected): Prophylaxis documented in this encounter Active and Recently Administered Medications Times are shown in EDT. Scheduled Medication Order 05/16/2012 05/17/2012 05/18/2012 acetaminophen (TYLENOL) tablet 1,000 mg 1642 (Given - Provider: Vivien Suarez RN - Comment: new post op) 0037 (Given - Provider: Mary mccarty RN)0534 (Given - Provider: Mary Dobson, RN)1400 (Given - Provider: Vivien Suarez RN)2200 (Given - Provider: Vivien Suarez RN) 0600 (Given - Provider: Yamile Pemberton RN)1414 (Given - Provider: Susan Mccloud RN) 1,000 mg, Oral, EVERY 8 HOURS SCHEDULED, First dose on Tue05/16/12 at 1400, Until Discontinued, Maximum dose of acetaminophen is 4000 mg from all sources in 24 hours., Routine amlodipine (NORVASC) tablet 5 mg (CANCELED) 0814 (Given - Provider: Pratibha Bain RN) 0900 (Given - Provider: Susan roger RN) 5 mg, Oral, DAILY, First dose on 05/03 at 0900, Until Discontinued, Hold for SBP < 100, HR < 60, Routine atorvastatin (LIPITOR) tablet 40 mg (CANCELED) 1700 (N ot Given - Provider: Vivien Suarez RN - Reason: Patient/family refused - Comment: Pt states he took this am) 1700 (Given - Provider: Vivien Suarez RN) 40 mg, Oral, EVERY EVENING, First dose o n Tue05/16/12 at 1700, Until Discontinued, Routine calcium carbonate (TUMS) chewable tablet 1,000 mg 1700 (Given - Provider: Vivien Suarez RN) 0800 (Given - Provider: Susan roger RN) 1,000 mg, Oral, 2 TIMES DAILY WITH MEALS , First dose on Tue05/17/12 at 1700, Until Discontinued, Routine ceFAZolin (ANCEF) 1g in dextrose 5% 50mL (COMPLETED) 1 530 (New Bag - Provider: Vivien Suarez RN) 0030 (New Bag - Provider: Mary mondragon RN)0652 (New Bag - Provider: Mary Dobson, GUILLAUME) 1 g = 1,000 mg, Intravenous, EVERY 8 MAYELA RS, 3 doses, First dose on Tue05/16/12 at 1530, Last dose on Tue05/17/12 at 0730, for 30 Minutes, For 3 doses postoperatively. Adjust to 8 hours from intraoperative dose. ceFAZolin (ANCEF) 2g in dextrose 5% 100mL (COMPLETED) 0700 (Due)0733 (Given - Provider: Antoine Powell CRNA) 2 g, Intravenous, ONCE, 1 dose, 05/16 at 0700, for 30 Minutes, To be administered upon arrival to the OR within one hour prior to incision., Day of Surgery (Day of Procedure) enoxaparin (LOVENOX) injection 40 mg 081 4 (Given - Provider: Pratibha Bain RN) 0900 (Given - Provider: Susan roger RN) 40 mg, Subcutaneous, EVERY 24 HOURS SCHE DULED (Daily), First dose on Tue05/17/12 at 0900, Until Discontinued, Until INR > 2.5, Routine esomeprazole (NEXIUM) capsule 40 mg (CANCELED) 1642 (G iven - Provider: Vivien Suarez RN) 0814 (Given - Provider: Pratibha Bain RN) 090 0 (Given - Provider: Susan Mccloud RN) 40 mg, Oral, DAILY, First dose on 15/09 at 1545, Until Discontinued, Routine fluticasone (FLOVENT) 110 mcg/actuation inhaler 1 puff (CANC ELED) 0900 (Not Given - Provider: Pratibha Bain RN - Reason: See comment - Comment: not verified. pt has his own.)2100 (Given - Provider: Vivien Suarez RN) 0900 (Given - Provider: Susan Mccloud RN) 1 puff, Inhalation, 2 TIMES DAILY, First dose on Tue05/17/12 at 2100, Until Discontinued, Shake well; Rinse mouth after administration., Routine hydrochlorothiazide (HYDRODIURIL) tablet 25 mg (CANCEL ED) 1600 (Not Given - Provider: Vivien Suarez RN - Reason: Patient/family refused - Comment: pt want to start in the am per his home routine) 0814 (Given - Provider: Pratibha Bain RN) 0900 (Given - Provider: Susan roger RN) 25 mg, Oral, DAILY, First dose on 15/09 at 1600, Until Discontinued, Hold for SBP <115, Routine losartan (COZAAR) tablet 100 mg (CANCELED) 1600 (Not G iven - Provider: Vivien Suarez RN - Reason: Patient/family refused - Comment: pt wants to start in the am per his usual home routine) 0814 (Given - Provider: Pratibha Bain RN) 0900 (Given - Provider: Susan roger RN) 100 mg, Oral, DAILY, First dose on Tue at 1600, Until Discontinued, Hold for SBP <115, Routine multivitamin Gjea-Ev-RI-Min (THERAPEUTIC-M) 27-0.4 mg tablet 1 tablet 1647 (Given - Provider: Vivien Suarez RN - Comment: new post op) 0814 (Given - Provider: Pratibha Bain RN) 0900 (Given - Provider: Susan roger RN) 1 tablet, Oral, DAILY, First dose on Tue05/16/12 at 1530, Until Discontinued, Routine potassium chloride (K-DUR) tablet 40 mEq (COMPLETED) 1051 (Given - Provider: Susan Mccloud RN) 40 mEq, Oral, ONCE, 1 dose, Tue05/18/12 at 1000, Routine senna-docusate (PERICOLACE) 8.6-50 mg per tablet 1-4 t ablet 2100 (Given - Provider: Vivien Suarez RN) 0815 (Given - Provider: Pratibha walker, GUILLAUME)2100 (Given - Provider: Vivien Suarez RN) 0900 (Given - Provider: Susan Mccloud RN) 1-4 tablet, Oral, 2 TIMES DAILY, First d ose on Tue05/16/12 at 2100, Until Discontinued, Start with 1 tablet or liquid equivalent orally twice daily and titrate up to achieve: 1. One bowel movement at le ast every 48 hours, AND 2. Without straining, Routine sodium chloride 0.9 % flush 5 mL (CANCELED) 1515 (Give n - Provider: Vivien Suarez RN) 0315 (Not Given - Provider: Mary irizarry RN - Reason: See comment - Comment: IV infusing)1515 (Given - Provider: Vivien Suarez RN) 0315 (Given - Provider: Yamile Pemberton RN)1515 (Due) 5 mL, Intravenous, EVERY 12 HOURS, First dose on Tue05/16/12 at 1515, Until Discontinued, Routine warfarin (COUMADIN) tablet 5 mg (COMPLETED) 1700 (Give n - Provider: Vivien Suarez RN) 5 mg, Oral, ONCE, 1 dose, Tue05/16/12 at 1700, Routine warfarin (COUMADIN) tablet 5 mg (COMPLETED) 1700 (Given - Provider: Vivien Suarez RN) 5 mg, Oral, ONCE, 1 dose, Tue05/17/12 at 1700, Routine warfarin (COUMADIN) tablet 7.5 mg 7.5 mg, Oral, ONCE, 1 dose, Tue05/18/12 at 1700, Routine Continuous Medication Order 05/16/2012 05/17/2012 05/18/2012 lactated ringers infusion 1,000 mL (CANCELED) 0700 (Ne w Bag - Provider: Vika Capps RN) 1144 (Stopped - Provider: Vivien Suarez RN) 1,000 mL, at 100 mL/hr, Intravenous, CON TINUOUS, Starting 05/16/12 at 0700, Until 05/16/12 at 1008, Day of Surgery (Day of Procedure) lactated ringers infusion (CANCELED) 1015 (New Bag - P rovider: Pina Doyle, RN)1852 (New Bag - Provider: Vivien Suarez RN) 125 mL/hr, at 125 mL/hr, Intravenous, CO NTINUOUS, Starting 05/16/12 at 1030, Until 05/17/12 at 0613 morphine 1 mg/mL STANDARDS ANALYST 30 mL (CANCELED) 1016 (New Syring e/Cartridge - Provider: Pina Doyle RN)2302 (New Syringe/Cartridge - Provider: Vivien Suarez RN) 1144 (Stopped - Provider: Vivien Suarez RN) Intravenous, STANDARDS ANALYST ONLY, Starting 05/16/12 at 1030, Until W ed 05/17/12 at 0613 PRN Medication Order 05/16/2012 05/17/2012 05/18/2012 albuterol (PROVENTIL HFA;VENTOLIN HFA) 9 0 mcg/actuation inhaler 2 puff (CANCELED) 2213 (Given - Provider: Vivien Suarez RN) 2 puff, Inhalation, EVERY 4 HOURS PRN, S tarting e 05/16/12 at 1449, Until Vikki 05/18/12 at 1753, Wheezing, Shortness of Breath, Routine bisacodyl (DULCOLAX) EC tablet 10 mg (CANCELED) 1156 (Given - Provider: Susan Mccloud, GUILLAUME) 10 mg, Oral, 2 TIMES DAILY PRN, Starting 05/16/12 at 1449, Until Vikki 05/18/12 at 1753, Constipation, Administer if needed per patient's routine or if no bowel movement within 48 hours, Routine bisacodyl (DULCOLAX) suppository 10 mg 10 mg, Rectal, DAILY PRN, Starting Tue at 1449, Until Vikki 05/18/12 at 1753, Constipation, Administer if needed per patient's routine or if no bowel movement within 48 hours, Routine HYDROmorphone (DILAUDID) injection 0.2-0.4 mg (CANCELE D) 0958 (Given - Provider: Pina Doyle RN)1025 (Given - Provider: Pina Doyle RN)1035 (Given - Provider: Pina Doyle RN)1043 (Given - Provider: Pina Doyle RN) 0.2-0.4 mg, Intravenous, EVERY 5 MIN PRN , Starting 05/16/12 at 0920, Until 05/16/12 at 1253, Pain, For moderate pain give: 0.2 mg every 5 minute prn For severe pain give: 0.4 mg every 5 minutes pr n Maximum dose: 4 mg per hour Hold for r espiratory rate less than 10 per minute., PACU Recovery, Routine OXYcodone (ROXICODONE) immediate release tablet 10 mg (CANCE LED) 0812 (Given - Provider: Pratibha Bain RN)1410 (Given - Provider: Vivien Suarez RN)1900 (See Alternative - Provider: Vivien Suarez RN) 022 (See Alternative - Provider: Yamile Pemberton, GUILLAUME)0945 (See Alternative - Provider: Susan Mccloud RN) 10 mg, Oral, EVERY 4 HOURS PRN, Starting 05/16/12 at 1004, Until Vikki 05/18/12 at 1753, Pain, moderate pain, For Moderate pain. Do not exceed 15 mg in 4 hours. If pain not relieved, call provider., Routine OXYcodone (ROXICODONE) immediate release tablet 15 mg (CANCE LED) 0812 (See Alternative - Provider: Pratibha Bain RN)1410 (See Alternative - Provider: Vivien Suarez RN)1900 (Given - Provider: Vivien Suarez RN - Comment: requesting the 15 mg dose) 0229 (Given - Provider: Yamile Pemberton, GUILLAUME)0945 (Given - Provider: Susan Mccloud, GUILLAUME) 15 mg, Oral, EVERY 4 HOURS PRN, Starting 05/16/12 at 1004, Until Vikki 8 at 1753, Pain, severe pain, For severe pain. Do not exceed 15 mg in 4 hours. If pain not relieved, call provider., Routine OXYcodone (ROXICODONE) immediate release tablet 5 mg 0812 (See Alternative - Provider: Pratibha Bain, RN)1410 (See Alternative - Provider: Vivien Suarez, RN)1900 (See Alternative - Provider: Vivien Suarez, RN) 0229 (See Alternative - Provider: Yamile Pemberton, GUILLAUME)0945 (See Alternative - Provider: Susan Mccloud, GUILLAUME) 5 mg, Oral, EVERY 4 HOURS PRN, Starting 05/16/12 at 1004, Until Vikki 05/18/12 at 1753, Pain, mild pain, For Mild pain. Do not exceed 15 mg in 4 hours. If pain not relieved, call provider, Routine polyethylene glycol (MIRALAX) packet 17 g 17 g, Oral, DAILY PRN, Starting Tue 05/16 at 1449, Until Vikki 05/18/12 at 1753, Constipation, Administer if needed per patient's routine or if no bowel movement within 48 hours, Routine No Frequency Medication Order 05/16/2012 05/17/2012 05/18/2012 gabapentin (NEURONTIN) 300 mg capsule (COMPLETED) 0700 (Given - Provider: Vika Capps RN - Comment: ordered by Dr Maldonado, not in MAR) 1 dose, Starting 05/16/12 at 0653, Un til 05/16/12 at 1859, VIKA CAPPS: Cabinet Override documented in this encounter Care Teams Detective Narcotics And Vice Relationship Specialty Start Date End Date Wilton Bonilla DO PCP - General 08/25/10 08/24/[address] [place] [address] documented as of this encounter
--- OUTSIDE RECORDS SUMMARY | 2022-06-29 14:23 | XMS_ITS | Encounter Summary ---
:1950 Author Organization [facility] [place] [address] Care Team Providers Name Role Phone Adi Bonilla DO Primary Care Provider Encounter Details Date Type Department Care Team Description 10/12/2010 Procedure visit [place] [address] Social History Tobacco Use Types Packs/Day Years Used Date Never Assessed Sex Assigned at Date Recorded Not on file documented as of this encounter Plan of Treatment Not on filedocumented as of this encounter Visit Diagnoses Not on filedocumented in this encounter Care Teams Cook Pickled Meat Relationship Specialty Start Date End Date Adi Bonilla DO PCP - General 08/25/10 08/24/15 [address] [place], [place] [id number] documented as of this encounter
--- OUTSIDE RECORDS SUMMARY | 2022-06-29 14:23 | XMS_ITS | Encounter Summary ---
:1950 [place] [address] Care Team Providers Name Role Phone Chad, Adi Felicia Primary Care Provider Encounter Details Date Type Department Care Team Description 05/08/2012 Clinical Support [place] [facility] [place]degenerative joint [facility] disease) [place] [address] Social History Tobacco Use Types Packs/Day Years Used Date Never Smoker Smokeless Tobacco: Never Used Alcohol Use Standard Drinks/Week Comments Yes 0 (1 standard drink = 0.6 oz pure alcoho l) Sex Assigned at Date Recorded Not on file documented as of this encounter Last Filed Vital Signs Vital Sign Reading Time Taken Comments Blood Pressure - - Pulse 75 05/08/2012 1:19 PM EDT Temperature - - Respiratory Rate - - Oxygen Saturation 95% 05/08/2012 1:19 PM EDT Inhaled Oxygen Concentration - - Weight 106.9 kg (235 lb 9.6 oz) 05/08/2012 1:19 PM EDT Height 182.9 cm (6') 05/08/2012 1:19 PM EDT Body Mass Index 31.95 05/08/2012 1:19 PM EDT documented in this encounter Progress Notes Kimberly Rodriguez RN - 05/08/2012 1:46 PM EDT Patient Name: Sal Paul Patient Age: 62 y.o. Birthdate: 1950 Admit date: (Not on file) Attending Physician: No att. providers found PAT questionnaire reviewed with patient while in pre admission testing. He had a reaction to sodium pentathol in the past. He has a history of mild asthma and HTN. He reports he has CIRO but does not use or have a CPAP machine. Pre operative folder reviewed with pt. Expresses good understanding of all i nformation reviewed. Lab and EKG performed while in pre admission testing. Sent to radiology for chest x-ray. documented in this encounter Plan of Treatment Not on filedocumented as of this encounter Procedures Procedure Name Priority Date/Time Associated Diagnosis Comme nts EKG 12-LEAD Routine 05/08/2012 2:01 PM DJD (degenerative Resu lts for this EDT joint disease) of hip proced ure are in the results section . documented in this encounter Results EKG 12 Lead (05/08/2012 2:01 PM EDT) Component Value Ref Range Test Analysis Performed Pathologis t Method Time At Signature Ventricular rate 67 BPM MUSE SYSTEM Atrial Rate 67 BPM MUSE SYSTEM P-R Interval 126 ms MUSE SYSTEM QRS Duration 104 ms MUSE SYSTEM Q-T Interval 404 ms MUSE SYSTEM QTC Calculated 426 ms MUSE SYSTEM (Bezet) Calculated R Cherry 49 degrees MUSE SYSTEM Calculated T Cherry 58 degrees MUSE SYSTEM INTERPRETATION Normal sinus rhythm MUSE SYSTEM Nonspecific T wave abnormality Abnormal ECG No previous ECGs available Confirmed by Raz Galvan MD ([id number]) on 05/09/2012 8:12:14 AM Specimen Anatomical Collection Method Collection Time Receive d Time (Source) Location / / Volume Laterality 05/08/2012 2:01 PM 2 8:12 EDT AM EDT Anthony Benitez MD ECG ORDERABLES Performing Organization Address City/State/ZIP Code Phon e Number MUSE SYSTEM documented in this encounter Visit Diagnoses Diagnosis DJD (degenerative joint disease) of hip Osteoarthrosis, unspecified whether gene ralized or localized, pelvic region and thigh documented in this encounter Care Teams Competitive Athlete Relationship Specialty Start Date End Date Adi Bonilla DO PCP - General 08/25/10 08/24/15 [address] [place] [address] documented as of this encounter
--- OUTSIDE RECORDS SUMMARY | 2022-06-29 14:23 | XMS_ITS | Encounter Summary ---
:1950 Author Organization [facility] [place] [address] Care Team Providers Name Role Phone Adi Bonilla DO Primary Care Provider Encounter Details Date Type Department Care Team Description 02/09/2012 Orders Only Orthopaed[place] [facility] [place] Anthony Benitez, Hip pain, right [facility] (Primary Dx) [place] [address] ORTHOPAEDIC SURGERY [place] [id number] Social History Tobacco Use Types Packs/Day Years Used Date Never Assessed Sex Assigned at Date Recorded Not on file documented as of this encounter Plan of Treatment Not on filedocumented as of this encounter Visit Diagnoses Diagnosis Hip pain, right - Primary Pain in joint, pelvic region and thigh documented in this encounter Care Teams Ocean Freight Manager Relationship Specialty Start Date End Date Adi Bonilla DO PCP - General 08/25/10 08/24/15 [address] [place] [address] documented as of this encounter
--- OUTSIDE RECORDS SUMMARY | 2022-06-29 14:23 | XMS_ITS | Encounter Summary ---
:1950 [place] [address] Care Team Providers Name Role Phone Chad, Wilton Felicia Primary Care Provider Reason for Referral Consultation (Routine) - Closed by system - unspecified Specialty Diagnoses / Procedures Referred By Contact Refer red To Contact Diagnoses DJD (degenerative joint disease) of hip Brandi Norton PA [facility] [place] [address] Referral ID Status Reason Start Expiration Visits Visits Date Date Requested Authorized [id number] Closed by Assume 05/18/2012 11/14/2012 1 1 system - Subset of unspecified Care Encounter Details Date Type Department Care Team Description 05/16/2012 - Hospital Encounter 3 [place] Damon Arcos (d egenerative 05/18/2012 [place] Clifford Patel MD joint disease) of [facility] [address] ORTHOPAEDIC [place], [place] SURGERY [address] [place], [place] [phone] [id number] Social History Tobacco Use Types Packs/Day Years Used Date Never Smoker Smokeless Tobacco: Never Used Alcohol Use Standard Drinks/Week Comments Yes 0 (1 standard drink = 0.6 oz pure alcoho l) Sex Assigned at Date Recorded Not on file documented as of this encounter Last Filed Vital Signs Vital Sign Reading Time Taken Comments Blood Pressure 126/70 05/17/2012 5:20 AM EDT Pulse 80 05/17/2012 5:20 AM EDT Temperature 36.7 ??C (98.1 ??F) 05/17/2012 5:20 AM EDT Respiratory Rate 16 05/17/2012 5:20 AM EDT Oxygen Saturation 96% 05/17/2012 5:20 AM EDT Inhaled Oxygen Concentration - - [...] Benitez wants you to use your leg data processing equipment repairer to get out of bed. 4. Wear the DAMION hose bilaterally to your lower legs until you are seen in followup. You should remove these at least once per day to inspect your skin. Coumadin flow sheet: Date Notes INR Coumadin (mg) 05/16 Day of Surgery 1.1 5 mg 8 POD 1 1.1 5 mg + Lovenox 40 mg 05/18 POD 2 1.2 7.5 mg to be [...] The INR should be reported to the [facility] Ortho clinic at [phone], and you will be informed of any [...] bowel movement. You can also take an wltu-bqw-ormcyce medication, miralax if needed. 2. If you [...] 5. Call your orthopaedic surgeon- Dr. Benitez (#[phone]) with any fevers, chills, sweats, redness or [...] any questions or concerns sooner, please call: [phone] documented in this encounter Medications at Time [...] multivitamin Take 1 tablet by 0 05/18/20122012 Tmku-Hs-CQ-Min mouth daily. (THERAPEUTIC-M) 27-0.4 mg tablet polyethylene [...] a flat mat with use of leg data processing equipment repairer. Patient did exercises for the right LE [...] Met Pt will move supine<>sit w/ leg data processing equipment repairer (I) . 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 O: Chart reviewed and met with pt, , and mother. Pt had R CARY yesterday by Dr Benitez. 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 Pt denies the need for in-pt rehab and feels he can manage at home with VNA. Pt requests [facility] for services. He will need PT/INR Tue, then q M&, SR in 10-14 days, and Home PT 2xwk. Pt has the DME he needs. A: Progressing toward d/c to home with VNA and family assist. P: Will follow, anticipate d/c in am. Pratibha Bain RN - 05/17/2012 10:33 AM EDT [id number] shift: Pt is OOB to chair. Pt reports pain as tolerable. Hip dressing clean/dry and intact. Pt ambulated with PT/OT. Agree with previous bench mechanic. Will continue to monitor pt. Damon Benitez [...] Imagaing: fine Mobilize and BRIDGE DIRECTED Plan: Bria Garcia MD - 05/17/2012 7:28 AM [...] well. Had some pain last evening, but ENGINEERING AND SCIENTIFIC PROGRAMMER helping. Has not yet been up. 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 Stairs: flight with a rail to [...] practice on that?? (bed mobility using leg data processing equipment repairer). Objective: Vitals: SpO2: 99% RA, HR =72 Most recent Hgb value: 12.8 Pain: Tolerable on oral med's Functional Mobility: Supine->sit : practiced transfer in & OOB R side using leg data processing equipment repairer for R LE and cues for technique, suggestions of ways to make movement easier. Worked very hard but needed min A to get in and cues to lean up on elbows since he didn't have railing to pull up on @ home and couldn't perform a sit-up. Reviewed and practiced exercises while in bed w/ leg data processing equipment repairer and performed a few ex's in chair [...] strike vs lifting and lowering in a rnnr-ma-oiol fashion. He did well and by end [...] precautions. Pt will move supine<>sit w/ leg data processing equipment repairer (I). Pt will move sit<>stand (I) to [...] treatment: 0 minutes MCKAYLA ANSARI PT Pager: [phone] Discharge Summary - Damon Benitez - 05/17/2012 [...] only. Qty: 3 Syringe Refills: 3 multivitamin Nmgg-Up-QL-Min (THERAPEUTIC-M) 27-0.4 mg tablet 1 tablet Take [...] Benitez wants you to use your leg data processing equipment repairer to get out of bed. 4. Wear the DAMION hose bilaterally to your lower legs until you are seen in followup. You should remove these at least once per day to inspect your skin. Coumadin flow sheet: Date Notes INR Coumadin (mg) 8/14 Day of Surgery 1.1 5 mg 8/15 [...] The INR should be reported to the [facility] Ortho clinic at [phone], and you will be informed of any [...] bowel movement. You can also take an enmc-jnc-sjkmayt medication, miralax if needed. 2. If you [...] 5. Call your orthopaedic surgeon- Dr. Benitez (#[phone]) with any fevers, chills, sweats, redness or [...] any questions or concerns sooner, please call: [phone] General Instructions Anticoagulation Instructions: For your safety, [...] 10:50 AM Damon Benitez MD [facility] [phone] None Joint Appt Health Question Three C Orth[facility] [phone] None Future Orders Please Complete By Expires REFERRAL TO ANTICOAGULATION MONITORING [[id number] Custom] Process Instructions: If no progress note [...] End Date 08/15/2012 Referral to Home Health [[id number] CPT(R)] Process Instructions: Scheduling Instructions: Comments: [facility] PHONE: [phone] FAX: [phone] Home care orders for Total Hip Replacements: RN: 1. Draw PT/INR as follows: per MD orders- Please START on Tuesday, May 19!! For week discharged: If d/c is Tuesday, do Tuesday and Tuesday; If d/c is Tuesday, do Tuesday and Tuesday; If d/c os Tuesday, do only is Ok Thereafter, PT/INR: every Tuesday and x 4 weeks Point of care testing is acceptable to obtain results PT/INR results to be called to the following: [facility] Orthopedic anticoagulation (Coumadin) clinic @ ; 2. Assess wound, pain management, medication effectiveness and management, elimination, nutrition 3. Staple or Suture removal in 10-14 days (approximately May 30) 4. Please check O2 sats and vitals at visits. Encourage patient to wear CPAP at night. PT: Continue rehab for balance, endurance, joint mobility, ROM, Strength, CARY protocol Questions: Responses: Agency name and contact information [facility] Patient location post discharge home What services are requested Physical Therapy Registered Nurse Start date Responsible MD post discharge contact info Provider Contact Information: Primary Care Provider: WILTON BONILLA DO [phone] Hospital Attending: Damon Benitez MD Department of Orthopaedic Surgery [phone] Signed: AMY BAEZ 05/18/2012 Plan of Care [...] monitor patients skin. Initial Assessments - Kimberly Diaz, OT - 05/17/2012 9:30 AM EDT Occupational [...] HIP ARTHROPLASTY performed by DAMON BENITEZ at [facility] MAIN OR Social History: Patient lives [...] minutes Total timed interventions: 0 minutes Pager: [phone] KIMBERLY DIAZ OT 05/17/2012 Occupational Therapy Rehabilitation Department Plan of Care - Vivien Suarez RN - 05/16/2012 4:30 PM EDT Problem: General Plan of Care - Adult/OB Goal: Plan of Care Reviewed With The patient and/or their fuels sales representative will communicate an understanding of [...] with LR @ 125 ml/hr. Using Morphine ENGINEERING AND SCIENTIFIC PROGRAMMER with releif at this time. Demonstrates correct use of ENGINEERING AND SCIENTIFIC PROGRAMMER. Meds given per DEC. Admission done. Oriented [...] Implant Name Type Inv. Item Serial No. Instruments Sales Representative Lot No. LRB No. Used Action LINER,ACTBR,ALTRX,NTRL,[id number] ([id number]) (AUTOREQ) - [id number] IMPLANTS LINER,ACTBR,ALTRX,NTRL,[id number] ([id number]) (AUTOREQ) Depuy Microfilm Duplicating Unit Supervisor - [id number] Right 1 Implanted CUP,ACTBR,PNNCL,300,58MM ([id number]) (AUTOREQ) - [id number] IMPLANTS CUP,ACTBR,PNNCL,300,58MM ([id number])(AUTOREQ) Depuy Microfilm Duplicating Unit Supervisor - [id number] Right 1 Implanted STEM,FMRL,+6MM,[id number] ([id number]) (AUTOREQ) - [id number] IMPLANTS STEM,FMRL,+6MM,[id number] ([id number]) (AUTOREQ) Depuy Microfilm Duplicating Unit Supervisor - [id number] Right 1 Implanted SLEEVE,CTRNG,PXML,FMRL,16F,LRG ([id number]) (AUTOREQ) - [id number] IMPLANTS SLEEVE,CTRNG,PXML,FMRL,16F,LRG ([id number]) (AUTOREQ) Depuy Microfilm Duplicating Unit Supervisor - [id number] Right 1 Implanted HEAD,FMRL,+6MM,11-13,36MM ([id number]) (AUTOREQ) - [id number] IMPLANTS HEAD,FMRL,+6MM,11-13,36MM ([id number]) (AUTOREQ) Depuy Microfilm Duplicating Unit Supervisor - [id number] Right 1 Implanted Findings: Eburnated femoral head [...] Procedure: The patient was identified in the properative holding area, where identity was confirmed, site [...] used to retract the iliotibial band. A Upton was then placed in the anterior third [...] then oversewn using #5 Ethibond in a snagqz-fl-saxrd fashion. The hip was then irrigated. We [...] Operative Note Patient Name: Sal Maravilla : [id number] MR#: [id number] Case Date: 05/16/2012 Surgeon: Surgeon(s) and Role: * DAMON BENITEZ MD - Primary * BRIA GARCIA MD - Resident-Surgeon Chief Preoperative diagnosis: djd Postoperative diagnosis: djd Procedure(s): @TOTAL HIP ARTHROPLASTY MODIFIER S-ROM FEMORAL STEM DEPUY MODIFIER PINNACLE ACETABULUM DEPUY Anesthesia: General Findings:djd Complications:none Fluids: 1500cc 1000hts Estimated Blood Loss: 300cc Drains:cody 150cc Implant Name Type Inv. Item Serial No. Instruments Sales Representative Lot No. LRB No. Used Action LINER,ACTBR,ALTRX,NTRL,[id number] ([id number]) (AUTOREQ) - [id number] IMPLANTS LINER,ACTBR,ALTRX,NTRL,[id number] ([id number]) (AUTOREQ) Depuy Microfilm Duplicating Unit Supervisor - [id number] Right 1 Implanted CUP,ACTBR,PNNCL,300,58MM ([id number]) (AUTOREQ) - [id number] IMPLANTS CUP,ACTBR,PNNCL,300,58MM ([id number])(AUTOREQ) Depuy Microfilm Duplicating Unit Supervisor - [id number] Right 1 Implanted STEM,FMRL,+6MM,[id number] ([id number]) (AUTOREQ) - [id number] IMPLANTS STEM,FMRL,+6MM,[id number] ([id number]) (AUTOREQ) Depuy Microfilm Duplicating Unit Supervisor - [id number] Right 1 Implanted SLEEVE,CTRNG,PXML,FMRL,16F,LRG ([id number]) (AUTOREQ) - [id number] IMPLANTS SLEEVE,CTRNG,PXML,FMRL,16F,LRG ([id number]) (AUTOREQ) Depuy Microfilm Duplicating Unit Supervisor - [id number] Right 1 Implanted HEAD,FMRL,+6MM,11-13,36MM ([id number]) (AUTOREQ) - [id number] IMPLANTS HEAD,FMRL,+6MM,11-13,36MM ([id number]) (AUTOREQ) Depuy Microfilm Duplicating Unit Supervisor - [id number] Right 1 Implanted Specimen femoral head COUMADIN 3 months with lmwh bridge untiil inr 2.5 Disposition: awakened from anesthesia, extubated and taken to the recovery room in a stable condition, having suffered no apparent untoward event. Condition: doing well without problems (Please see the Surgical Encounter Summary for any Implant and Specimen details pertinent to this patient.) Miscellaneous - Provider, Scanning - 05/16/2012 7:47 AM EDT documented in [...] LAB USE ONLY (05/18/2012 11:24 AM EDT) athologist Signature POC Glucose 152 60 - 199 CERNER mg/dL MILLENNIUM Comment: [...] Organization Address City/State/ZIP [place] [address] CERNER MILLENNIUM POCT GLUCOSE LAB USE ONLY (05/18/2012 6:36 AM EDT) athologist [facility] POC Glucose 122 60 - 199 CERNER mg/dL MILLENNIUM Comment: Supplemental ranges: <110 mg/dL before meals <200 mg/dL all other times of the day Specimen Anatomical Collection Method Collection Time Receive d Time (Source) Location / / Volume Laterality Blood specimen 05/18/2012 6:36 AM 012 6:36 (specimen) EDT AM EDT Damon Benitez MD POINT OF CARE TEST ORDERABLE S Performing Organization Address City/[facility]/ZIP [place] [address] CERNER MILLENNIUM (ABNORMAL) DIFFERENTIAL, AUTOMATED (05/18/2012 3:48 AM EDT) [facility] gist Method Time Signature Neutrophils % 57.5 [...] Organization Address City/State/ZIP [place] [address] CERNER MILLENNIUM (ABNORMAL) Prothrombin Time (05/18/2012 3:48 AM EDT) P athologist Signature PT 15.0 (H) 11.9 - 14.7 CERNER sec MILLENNIUM Comment: [facility] Transfusion Committee Guidelines: I NR less than 2.0, PTT less than OR equal to 43.5 seconds, or Fibrinogen gre ater than or equal to 100 mg/dl indicate adequate procoagulant activity for hemostasis in patients without underlying bleeding disorders. INR 1.2 (H) 0.9 - 1.1 CERNER MILLENNIUM Specimen Anatomical Collection Method Collection Time Receive d Time (Source) Location / / Volume Laterality Blood specimen 05/18/2012 3:48 AM 012 3:59 (specimen) EDT AM EDT Resulting Agency Comment Spec In Lab Damon Benitez MD HEMATOLOGY ORDERABLES Performing Organization Address City/State/ZIP Code Phon e Number [place] [phone] CERNER MILLENNIUM (ABNORMAL) Basic Metabolic Panel (non-fasting) (05/18/2012 3:48 AM EDT) P athologist Signature Glucose Lvl 131 60 - 199 CERNER mg/dL MILLENNIUM Comment: Diabetes: >=200 mg/dL plus symp toms BUN 16 10 - 20 mg/dL CERNER MILLENNIU M Creatinine 0.86 0.80 - 1.50 mg/dL CERNER MILL ENNIUM Comment: Please note that the pediatric reference intervals supplied above were not validated at [facility]. Results from pediatri c patients should be interpreted in conjunction to the patient's age, height and muscle mass. Sodium 138 135 - 145 mmol/L CERNER BELKIS NIUM Potassium 3.4 (L) 3.5 - 5.0 mmol/L CERNER BELKIS NIUM Comment: result rechecked-[facility] Please note: ??Patients with WBC [...] bu t increases with age. At present, DEP does NOT recommend usi ng the MDRD [...] Organization Address City/State/[place] [address] CERNER MILLENNIUM (ABNORMAL) CBC [...] MCHC 33.7 32.0 - CERNER 36.5 gm/dL [facility] Platelets 141 (L) 145 - 370 CERNER x10(3)/mcL MILLENNIUM RDWSD 43.6 35.0 - CERNER 46.0 fL [facility] RDWCV 13.1 10.9 - CERNER 14.4 % MILLENNIUM MPV 10.6 9.0 - 12.0 CERNER fL [facility] Specimen Anatomical Collection Method Collection Time Receive d Time (Source) Location / / Volume Laterality Blood specimen 05/18/2012 3:48 AM 012 3:59 (specimen) EDT AM EDT Resulting Agency Comment Spec In Lab Damon Benitez MD HEMATOLOGY ORDERABLES Performing Organization Address City/State/ZIP Code Phon e Number [address] [facility] POCT GLUCOSE LAB USE ONLY (05/17/2012 9:08 PM EDT) athologist Signature POC Glucose 118 60 - 199 CERNER mg/dL [facility] Comment: Supplemental ranges: <110 mg/dL before meals <200 mg/dL all other times of the day Specimen Anatomical Collection Method Collection Time Receive d Time (Source) Location / / Volume Laterality Blood specimen 05/17/2012 9:08 PM 012 9:08 (specimen) EDT PM EDT Damon Benitez MD POINT OF CARE TEST ORDERABLE S Performing Organization Address City/State/ZIP Code Phon e Number [address] [facility] MILLENNIUM POCT GLUCOSE LAB USE ONLY (05/17/2012 4:35 PM EDT) athologist Signature POC Glucose 123 60 - 199 CERNER mg/dL ENNIUM Comment: Supplemental ranges: <110 mg/dL before meals <200 mg/dL all other times of the day Specimen Anatomical Collection Method Collection Time Receive d Time (Source) Location / / Volume Laterality Blood specimen 05/17/2012 4:35 PM 012 4:35 (specimen) EDT PM EDT Damon Benitez MD POINT OF CARE TEST ORDERABLE S Performing Organization Address City/State/ZIP [place] [address] CERNER MILLENNIUM POCT GLUCOSE [...] Organization Address City/State/ZIP Code Phon e Number [address] CERNER MILLENNIUM POCT GLUCOSE [...] Organization Address City/State/ZIP [place] [address] CERNER MILLENNIUM HEMOGLOBIN A1C (05/17/2012 4:41 AM EDT) athologist Signature Hemoglobin A1C 5.8 4.3 - [...] with hemoglobinopathies. Additional resources are available on e ADA website: ??http://professional.diabetes.org/gluc osecalculator.aspx Reference: Fox MARISCAL, Nasra J, Luzmaria R, et al. ??Tr anslating the A1C assay into estimated average glucose values. ??Diabetes Care 2008:31(8):5825-0678. Specimen Anatomical Collection Method Collection Time Receive d Time (Source) Location / / Volume Laterality Blood specimen 05/17/2012 4:41 AM 012 (specimen) EDT 11:40 AM EDT Resulting Agency Comment Spec In Lab Damon Benitez MD CHEMISTRY ORDERABLES Performing Organization Address City/State/[place] [address] MITA GOLDBERGENNIUM (ABNORMAL) DIFFERENTIAL, AUTOMATED (05/17/2012 4:41 AM EDT) [facility] Method Time Signature Neutrophils % 65.2 [...] 012 4:48 (specimen) EDT AM EDT Damon Benitez MD HEMATOLOGY ORDERABLES Performing Organization Address City/State/[place] [address] CERNER MILLENNIUM Prothrombin Time (05/17/2012 4:41 AM EDT) P athologist Signature PT 14.6 11.9 - 14.7 CERNER sec MILLENNIUM Comment: [facility] Transfusion Committee Guidelines: I NR less [...] Organization Address City/State/ZIP Code Phon e Number [place] [phone] CERNER MILLENNIUM (ABNORMAL) Basic Metabolic Panel (non-fasting) (05/17/2012 4:41 AM EDT) athologist Signature Glucose Lvl 133 60 - 199 CERNER mg/dL MILLENNIUM Comment: Diabetes: >=200 mg/dL plus symp toms BUN 14 10 - 20 mg/dL CERNER MILLENNIU M Creatinine 0.88 0.80 - 1.50 mg/dL CERNER MILL ENNIUM Comment: Please note that the pediatric reference intervals supplied above were not validated at [facility]. Results from pediatri c patients should be [...] Organization Address City/State/ZIP Code Phon e Number [place] [phone] [facility] (ABNORMAL) CBC (with Diff) (05/17/2012 4:41 AM EDT) athologist Signature WBC 7.6 4.0 - 10.0 [...] MPV 10.3 9.0 - 12.0 CERNER fL MILLENNIUM Specimen Anatomical Collection Method Collection Time Receive d Time (Source) Location / / Volume Laterality Blood specimen 05/17/2012 4:41 AM 012 4:48 (specimen) EDT AM EDT Resulting Agency Comment Spec In Lab Damon Benitez MD HEMATOLOGY ORDERABLES Performing Organization Address City/State/ZIP Code Phon e Number [address] [facility] POCT GLUCOSE LAB USE ONLY (05/16/2012 9:15 PM EDT) P athologist Signature POC Glucose 157 60 - 199 CERNER mg/dL [facility] Comment: Supplemental ranges: <110 mg/dL before meals <200 mg/dL all other times of the day Specimen Anatomical Collection Method Collection Time Receive d Time (Source) Location / / Volume Laterality Blood specimen 05/16/2012 9:15 PM 012 9:15 (specimen) EDT PM EDT Damon Benitez MD POINT OF CARE TEST ORDERABLE S Performing Organization Address City/State/ZIP [place] [address] [facility] MILLENNIUM POCT GLUCOSE LAB USE ONLY (05/16/2012 4:50 PM EDT) athologist Signature POC Glucose 145 60 - 199 CERNER mg/dL [facility] Comment: Supplemental ranges: <110 mg/dL before meals <200 mg/dL all other times of the day Specimen Anatomical Collection Method Collection Time Receive d Time (Source) Location / / Volume Laterality Blood specimen 05/16/2012 4:50 PM 012 4:50 (specimen) EDT PM EDT Damon Benitez MD POINT OF CARE TEST ORDERABLE S Performing Organization Address City/[facility]/ZIP Code Phon e Number [address] [facility] BBECOPPER [facility]OS[facility]ITALI[facility] Prothrombin Time (05/16/2012 4:24 PM EDT) athologist Signature PT 14.5 11.9 - 14.7 CERNER sec [facility] Comment: [facility] Transfusion Committee Guidelines: I NR less than 2.0, PTT less than OR equal to 43.5 seconds, or Fibrinogen gre ater than or equal to 100 mg/dl indicate adequate procoagulant activity for hemostasis in patients without underlying bleeding disorders. INR 1.1 0.9 - 1.1 [facility] Specimen Anatomical Collection Method Collection Time Receive d Time (Source) Location / / Volume Laterality Blood specimen 05/16/2012 4:24 PM 012 4:31 (specimen) EDT PM EDT Resulting Agency Comment Spec In Lab Damon Benitez MD HEMATOLOGY ORDERABLES Performing Organization Address City/[facility]/ZIP Code Phon e Number [address] [facility] XR one hip- 2 views (05/16/2012 11:02 [...] Glucose 123 60 - 199 CERNER mg/dL [facility] Comment: Supplemental ranges: <110 mg/dL before meals <200 mg/dL all other times of the day Specimen Anatomical Collection Method Collection Time Receive d Time (Source) Location / / Volume Laterality Blood specimen 05/16/2012 10:16 2 (specimen) AM EDT 10:16 AM EDT Damon Benitez MD POINT OF CARE TEST ORDERABLE S Performing Organization Address City/State/ZIP [place] [address] [facility] SURGICAL PATHOLOGY REPORT (05/16/2012 9:53 AM EDT) [facility] Method Time Signature Surgical [facility] Pathology ? [facility] Report ? Provider: ?? DAMON BENITEZ ?? Pt. Name: ?? SAL MARAVILLA ? Acc #: ?[id number] ?Pt. MRN: ?[id number] ? Col Date: ?? 2 ? /Sex: [...] ?Margin: ?Smooth, red, trabecular bone. ?Articular surface: [place], granular, and pitted. ?Eburnation: ?Present. ?Osteophytes: [...] MD PATHOLOGY/CYTOLOGY ORDERABLE S Performing Organization Address City/State/[place] [address] [facility] Specimen to Pathology (surgical or derm) (05/16/2012 8:13 AM EDT) Specimen Anatomical Collection Method Collection Time Receive d Time (Source) Location / / Volume Laterality AP Specimen 05/16/2012 8:13 AM 2 8:13 EDT AM EDT Narrative MITA RAZO - 05/16/2012 8:13 AM E DT Specimen requisition ordered. ??Separate Pathology report to follow Damon Benitez MD PATHOLOGY/CYTOLOGY ORDERABLE S Performing Organization Address City/State/ZIP Code Phon e Number [place] [id number] MITA RAZO documented in this encounter Visit Diagnoses Diagnosis Right hip OA; s/p R lateral CARY 05/16/12 - Primary Osteoarthrosis, unspecified whether gene ralized or localized, pelvic region and thigh documented in this encounter Administered Medications Inactive Administered Medications - up to 3 most recent administrations Medication Order MAR Action Action Date Dose Rate Site acetaminophen (TYLENOL) tablet Given 05/18/2012 2:14 PM EDT 1,00 0 mg 1,000 mg 1,000 mg, Oral, EVERY 8 HOURS SCHEDULED, First dose on Tue05/16/12 at 1400, Until Discontinued, Maximum dose of acetaminophen is 4000 mg from all sources in 24 hours., Routine Given 05/18/2012 6:00 AM EDT 1,000 mg Given 05/17/2012 10:00 PM EDT 1,000 mg albuterol (PROVENTIL HFA;VENTOLIN HFA) 90 Given 05/16/2012 1 0:13 PM EDT 2 puffs mcg/actuation inhaler 2 puff 2 puff, Inhalation, EVERY 4 HOURS PRN, Starting on Tue05/16/12 at 1449, Until Tue05/18/12 at 1753, Wheezing, Shortness of Breath, Routine amlodipine (NORVASC) tablet 5 mg Given 05/18/2012 9:00 AM EDT 5 mg 5 mg, Oral, DAILY, First dose on Tue05/17/12 at 0900, Until Discontinued, Hold for SBP < 100, HR < 60, Routine Given 05/17/2012 8:14 AM EDT 5 mg atorvastatin (LIPITOR) tablet 40 mg Given 05/17/2012 5:00 PM EDT 40 mg 40 mg, Oral, EVERY EVENING, First dose on Tue05/16/12 at 1700, Until Discontinued, Routine bisacodyl (DULCOLAX) EC tablet 10 mg Given 05/18/2012 11:56 AM EDT 10 mg 10 mg, Oral, 2 TIMES DAILY PRN, Starting on Tue05/16/12 at 1449, Until Tue05/18/12 at 1753, Constipation, Administer if needed per patient's routine or if no bowel movement within 48 hours, Routine calcium carbonate (TUMS) chewable tablet Given 05/18/2012 8:00 A M EDT 1,000 mg 1,000 mg 1,000 mg, Oral, 2 TIMES DAILY WITH MEALS, First dose on Tue05/17/12 at 1700, Until Discontinued, Routine Given 05/17/2012 5:00 PM EDT 1,000 mg ceFAZolin (ANCEF) 1g in dextrose New Bag 05/17/2012 6:52 AM ED T 1,000 mg 100 mL/hr 5% 50mL 1,000 mg (1 g), Intravenous, EVERY 8 HOURS, 3 doses, First dose on Tue05/16/12 at 1530, Last dose on Tue05/17/12 at 0730, Administer over 30 Minutes, For 3 doses postoperatively. Adjust to 8 hours from intraoperative dose., Indication for (Active or Suspected): Prophylaxis New Bag 05/17/2012 12:30 AM EDT 1,000 mg 100 mL/hr New Bag 05/16/2012 3:30 PM EDT 1,000 mg 100 mL/hr enoxaparin (LOVENOX) injection 40 mg Given 05/18/2012 9:00 AM EDT 40 mg 40 mg, Subcutaneous, EVERY 24 HOURS SCHEDULED (Daily), First dose on Tue05/17/12 at 0900, Until Discontinued, Until INR > 2.5, Routine Given 05/17/2012 8:14 AM EDT 40 mg esomeprazole (NEXIUM) capsule 40 mg Given 05/18/2012 9:00 AM EDT 40 mg 40 mg, Oral, DAILY, First dose on Tue05/16/12 at 1545, Until Discontinued, Routine Given 05/17/2012 8:14 AM EDT 40 mg Given 05/16/2012 4:42 PM EDT 40 mg fluticasone (FLOVENT) 110 mcg/actuation Given 05/18/2012 9:00 AM EDT 1 puff inhaler 1 puff 1 puff, Inhalation, 2 TIMES DAILY, First dose on Tue05/17/12 at 2100, Until Discontinued, Shake well; Rinse mouth after administration., Routine Given 05/17/2012 9:00 PM EDT 1 puff gabapentin (NEURONTIN) 300 mg capsule Given 05/16/2012 7:00 AM EDT 600 mg 1 dose, Starting on Tue05/16/12 at 0653, Until Tue05/16/12 at 0700, VIKA CAPPS: Carlainejudith Override hydrochlorothiazide (HYDRODIURIL) tablet 25 mg Given 05/18/2012 9:00 AM EDT 25 mg 25 mg, Oral, DAILY, First dose on Tue05/16/12 at 1600, Until Discontinued, Hold for SBP <115, Routine Given 05/17/2012 8:14 AM EDT 25 mg HYDROmorphone (DILAUDID) injection 0.2-0.4 Given 05/16/2012 10:43 AM EDT 0.4 mg mg 0.2-0.4 mg, Intravenous, EVERY 5 MIN PRN, Starting on Tue05/16/12 at 0920, Until Tue05/16/12 at 1253, Pain, For moderate pain give: 0.2 mg every 5 minute prn For severe pain give: 0.4 mg every 5 minutes prn Maximum dose: 4 mg per hour Hold for respiratory rate less than 10 per minute., PACU Recovery, Routine Given 05/16/2012 10:35 AM EDT 0.2 mg Given 05/16/2012 10:25 AM EDT 0.2 mg lactated ringers infusion 1,000 New Bag 05/16/2012 7:00 AM EDT 1,000 mLs 100 mL/hr mL 1,000 mL, at 100 mL/hr, Intravenous, CONTINUOUS, Starting on Tue05/16/12 at 0700, Until Tue05/16/12 at 1008, Day of Surgery (Day of Procedure) lactated ringers infusion New Bag 05/16/2012 6:52 PM EDT 125 mL/hr 125 mL/hr 125 mL/hr, Intravenous, CONTINUOUS, Starting on Tue05/16/12 at 1030, Until Tue05/17/12 at 0613 New Bag 05/16/2012 10:15 AM EDT 125 mL/hr 125 mL/hr losartan (COZAAR) tablet 100 mg Given 05/18/2012 9:00 AM EDT 100 mg 100 mg, Oral, DAILY, First dose on Tue05/16/12 at 1600, Until Discontinued, Hold for SBP <115, Routine Given 05/17/2012 8:14 AM EDT 100 mg morphine 1 mg/mL ENGINEERING AND SCIENTIFIC PROGRAMMER 30 mL New Syringe/Cartridge 05/16/2012 11:02 PM EDT mL/hr Intravenous, ENGINEERING AND SCIENTIFIC PROGRAMMER ONLY, Starting on Tue05/16/12 at 1030, Until Tue05/17/12 at 0613 New Syringe/Cartridge 05/16/2012 10:16 AM EDT mL/hr multivitamin Apgy-Bp-YX-Min (THERAPEUTIC-M) Given 05/03 9:00 AM EDT 1 tablet 27-0.4 mg tablet 1 tablet 1 tablet, Oral, DAILY, First dose on Tue05/16/12 at 1530, Until Discontinued Given 05/17/2012 8:14 AM EDT 1 tablet Given 05/16/2012 4:47 PM EDT 1 tablet OXYcodone (ROXICODONE) immediate release Given 05/17/2012 2:10 P M EDT 10 mg tablet 10 mg 10 mg, Oral, EVERY 4 HOURS PRN, Starting on Tue05/16/12 at 1004, Until Tue05/18/12 at 1753, Pain, moderate pain, For Moderate pain. Do not exceed 15 mg in 4 hours. If pain not relieved, call provider., Routine Given 05/17/2012 8:12 AM EDT 10 mg OXYcodone (ROXICODONE) immediate release Given 05/18/2012 9:45 A M EDT 15 mg tablet 15 mg 15 mg, Oral, EVERY 4 HOURS PRN, Starting on Tue05/16/12 at 1004, Until Tue05/18/12 at 1753, Pain, severe pain, For severe pain. Do not exceed 15 mg in 4 hours. If pain not relieved, call provider., Routine Given 05/18/2012 2:29 AM EDT 15 mg Given 05/17/2012 7:00 PM EDT 15 mg potassium chloride (K-DUR) tablet 40 mEq Given 05/18/2012 10:51 AM EDT 40 mEq 40 mEq, Oral, ONCE, 1 dose, On Tue05/18/12 at 1000, Routine senna-docusate (PERICOLACE) 8.6-50 mg per Given 2011 9:00 AM EDT 2 tablets tablet 1-4 tablet 1-4 tablet, Oral, 2 TIMES DAILY, First dose on Tue05/16/12 at 2100, Until Discontinued, Start with 1 tablet or liquid equivalent orally twice daily and titrate up to achieve: 1. One bowel movement at least every 48 hours, AND 2. Without straining, Routine Given 05/17/2012 9:00 PM EDT 2 tablets Given 05/17/2012 8:15 AM EDT 2 tablets sodium chloride 0.9 % flush 5 mL Given 05/18/2012 3:15 AM EDT 5 mLs 5 mL, Intravenous, EVERY 12 HOURS, First dose on Tue05/16/12 at 1515, Until Discontinued Given 05/17/2012 3:15 PM EDT 5 mLs Given 05/16/2012 3:15 PM EDT 5 mLs warfarin (COUMADIN) tablet 5 mg Given 05/16/2012 5:00 PM EDT 5 mg 5 mg, Oral, ONCE, 1 dose, On Tue05/16/12 at 1700, Routine warfarin (COUMADIN) tablet 5 mg Given 05/17/2012 5:00 PM EDT 5 mg 5 mg, Oral, ONCE, 1 dose, On Tue05/17/12 at 1700, Routine documented in this encounter Active and Recently Administered Medications Times are shown in EDT. Scheduled Medication Order 05/16/2012 05/17/2012 05/18/2012 acetaminophen (TYLENOL) tablet 1,000 mg 1642 (Given - Provider: Vivien Suarez RN - Comment: new post op) 0037 (Given - Provider: Mary mccarty RN)0534 (Given - Provider: Mary Dobson RN)1400 (Given - Provider: Vivien Suarez RN)2200 [...] RN) 0030 (New Bag - Provider: Mary mondragon, GUILLAUME)0652 (New Bag - Provider: Mary Dobson, GUILLAUME) [...] (NEXIUM) capsule 40 mg (CANCELED) 1642 (G carlos - Provider: Vivien Suarez RN) 0814 (Given [...] Pratibha Bain RN) 0900 (Given - Provider: Susna roger RN) 25 mg, Oral, DAILY, First [...] Discontinued, Hold for SBP <115, Routine multivitamin Iaku-Uh-QZ-Min (THERAPEUTIC-M) 27-0.4 mg tablet 1 tablet 1647 (Given - Provider: Vivien Suarez RN - Comment: new post op) 0814 (Given - Provider: Pratibha Bain, GUILLAUME) 0900 (Given - Provider: Susan roger RN) 1 tablet, Oral, DAILY, First dose on Tue05/16/12 at 1530, Until Discontinued, Routine potassium chloride (K-DUR) tablet 40 mEq (COMPLETED) 1051 (Given - Provider: Susan Mccloud RN) 40 mEq, Oral, ONCE, 1 dose, [facility] 05/18/12 at 1000, Routine senna-docusate (PERICOLACE) 8.6-50 mg per tablet 1-4 t ablet 2100 (Given - Provider: Vivien Suarez RN) 0815 (Given - Provider: Pratibha walekr, GUILLAUME)2100 (Given - Provider: Vivien Suarez RN) [...] at 100 mL/hr, Intravenous, CON TINUOUS, Starting Tue05/16/12 at 0700, Until Tue05/16/12 at 1008, Day of Surgery (Day of Procedure) lactated ringers infusion (CANCELED) 1015 (New Bag - P rovider: Pina Doyle RN)1852 (New Bag - Provider: Vivien Suarez RN) 125 mL/hr, at 125 mL/hr, Intravenous, CO NTINUOUS, Starting Tue05/16/12 at 1030, Until Tue05/17/12 at 0613 morphine 1 mg/mL ENGINEERING AND SCIENTIFIC PROGRAMMER 30 mL (CANCELED) 1016 (New Syring e/Cartridge - Provider: Pina Doyle RN)2302 (New Syringe/Cartridge - Provider: Vivien Suarez RN) 1144 (Stopped - Provider: Vivien Suarez RN) Intravenous, ENGINEERING AND SCIENTIFIC PROGRAMMER ONLY, Starting Tue05/16/12 at 1030, Until W ed 05/17/12 at 0613 PRN Medication Order 05/16/2012 05/17/2012 05/18/2012 albuterol (PROVENTIL HFA;VENTOLIN HFA) 9 0 mcg/actuation inhaler 2 puff (CANCELED) 2213 (Given - Provider: Vivien Suarez RN) 2 puff, Inhalation, EVERY 4 HOURS PRN, S tarting Tue05/16/12 at 1449, Until Vikki 05/18/12 at 1753, Wheezing, Shortness of Breath, Routine bisacodyl (DULCOLAX) EC tablet 10 mg (CANCELED) 1156 (Given - Provider: Susan Mccloud RN) 10 mg, Oral, 2 TIMES DAILY PRN, Starting Tue05/16/12 at 1449, Until Vikki 05/18/12 at 1753, Constipation, Administer if needed per patient's routine or if no bowel movement within 48 hours, Routine bisacodyl (DULCOLAX) suppository 10 mg 10 mg, Rectal, DAILY PRN, Starting e at 1449, Until Vikki 05/18/12 at 1753, [...] Intravenous, EVERY 5 MIN PRN , Starting Tue05/16/12 at 0920, Until 05/16/12 at 1253, Pain, [...] (See Alternative - Provider: Vivien Suarez RN) 0229 (See Alternative - Provider: Yamile Pemberton RN)0945 (See Alternative - Provider: Susan Mccloud RN) 10 mg, Oral, EVERY 4 HOURS PRN, Starting Tue05/16/12 at 1004, Until Vikki 05/18/12 at 1753, [...] - Comment: requesting the 15 mg dose) 228 (Given - Provider: Yamile Pemberton, GUILLAUME)0945 (Given - Provider: Susan Mccloud, GUILLAUME) 15 mg, Oral, EVERY 4 HOURS PRN, Starting 05/16/12 at 1004, Until Vikki 05/18/12 at 1753, Pain, severe pain, For severe pain. Do not exceed 15 mg in 4 hours. If pain not relieved, call provider., Routine OXYcodone (ROXICODONE) immediate release tablet 5 mg 0812 (See Alternative - Provider: Pratibha Bain RN)1410 (See Alternative - Provider: Vivien Suarez RN)1900 (See Alternative [...] capsule (COMPLETED) 0700 (Given - Provider: Vika Capps, GUILLAUME - Comment: ordered by Dr Maldonado, not in DEC) 1 dose, Starting 05/16/12 at 0653, Un til 05/16/12 at 1859, VIKA CAPPS: Cabinet Override documented in this encounter Care Teams Instrument Tech Relationship Specialty Start Date End Date Wilton Bonilla DO PCP - General 08/25/10 08/24/15 [address] [place], [place] [id number] documented as of this encounter
--- OUTSIDE RECORDS SUMMARY | 2022-06-29 14:23 | XMS_ITS | Encounter Summary ---
:1950 Author Organization [facility] [place] [address] Care Team Providers Name Role Phone Adi Bonilla DO Primary Care Provider Encounter Details Date Type Department Care Team Description 05/08/2012 Office [place] [address] Social History Tobacco Use Types Packs/Day [...] on filedocumented in this encounter Care Teams Silica Spray Mixer Relationship Specialty Start Date End Date Adi Bonilla DO PCP - General 08/25/10 08/24/15 [address] [place] [address] documented as of this encounter
--- OUTSIDE RECORDS SUMMARY | 2022-06-29 14:23 | XMS_ITS | Encounter Summary ---
:1950 Author Organization [facility] [place] [address] Care Team Providers Name Role Phone Adi Bonilla DO Primary Care Provider Encounter Details Date Type Department Care Team Description 10/12/2010 Office Visit Orthopaedics at [facility] Noel Howard, [facility] [place] [address] ORTHOPAEDIC SURGERY [phone] [place], [place] [address] (Wo rk) Social History Tobacco Use Types Packs/Day Years Used Date Never Assessed Sex Assigned at Date Recorded Not on file documented as of this encounter Plan of Treatment Not on filedocumented as of this encounter Visit Diagnoses Not on filedocumented in this encounter Care Teams Warehouse Administrator Relationship Specialty Start Date End Date Adi Bonilla DO PCP - General 08/25/10 08/24/15 [address] [place] [address] documented as of this encounter
--- OUTSIDE RECORDS SUMMARY | 2022-06-29 14:23 | XMS_ITS | Encounter Summary ---
:1950 Author Organization [facility] [place] [address] Care Team Providers Name Role Phone ChadAdi sung DO Primary Care Provider Reason for Visit Reason Comments Right Hip Pain Encounter Details Date Type Department Care Team Description 03/02/2012 Office Visit Orthopaedics at [facility] Anthony Benitez (degenerative [facility] MD Amanda joint disease) of hip [facility] (Primary Dx) [place] [address] [facility] [phone] ORTHOPAEDIC SURGERY [place], [place] [address] Social History Tobacco Use Types Packs/Day Years Used Date Never Smoker Smokeless Tobacco: Never Used Alcohol Use Standard Drinks/Week Comments Yes 0 (1 standard drink = 0.6 oz pure alcoho l) Sex Assigned at Date Recorded Not on file documented as of this encounter Last Filed Vital Signs Vital Sign Reading Time Taken Comments Blood Pressure 132/72 03/02/2012 10:40 AM EDT Pulse 76 03/02/2012 10:40 AM EDT Temperature - - Respiratory Rate - - Oxygen Saturation - - Inhaled Oxygen Concentration - - Weight 103 kg (227 lb) 03/02/2012 10:40 AM EDT Height 180.3 cm (5' 11) 03/02/2012 10:40 AM EDT Body Mass Index 31.66 03/02/2012 10:40 AM EDT documented in this encounter Progress Notes Anthony Benitez - 03/02/2012 11:49 AM EDT Mr. Paul is a 62-year-old gentleman that we are seeing at the request of Dr. Bonilla with a chief complaint of right hip pain. When the patient says hip, he points deep in the groin, anterior thigh, and in his buttock. While he has had back pain in the past and currently even has some discomfort on the left side above his ilium. He does appreciate that this discomfort is definitely something different from his usual back pain and it is something that he has been aware of to some degree over the past couple of years without any precipitating event. What his health matters is that his is the patient of mine and she has enjoyed the benefits of a right total hip replacement that we did about six years ago. The patient now is finding that this discomfort is compromising the quality of his life. He has pain on a regular basis in transition. He has pain at night if he rolls advertently. Stairs and grades are a problem down more than up. Uneven terrain is avoided if possible. Shoe and sock application, getting in and out of an automobile is all compromised, and he does limp but does not use a walking stick. He will use a banister whenever given the opportunity, however. He does have nocturia x3 or 4 and this has been longstanding with no urinary symptoms of any significance other than that, but the pain will wake him not necessarily to need to avoid. The patient has been unaware of a leg length discrepancy. Has not had any injections and has relied upon antiinflammatory medication such as an occasional Advil. He had been on nabumetone in the past, but this has been discontinued. The patient has no contralateral symptoms, knee symptoms, or ankle symptoms. His upper extremities are reliable. This is a gentleman who does have few comorbidities. He has been treated for asthma, currently on albuterol and Flovent, was on Advair Diskus which was discontinued. He has also been treated for hypertension on Norvasc and Hyzaar and has Lipitor for hypercholesterolemia. He is also taking occasional Provigil and Viagra. 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 The patient weighs about 220. His appetite is excellent. He does not smoke. He enjoys a glass of wine and a martini. He has undergone harelip surgery as a child and had this deviated nasal septum requiring management. His tibia was treated nonoperatively. His mother is still alive at age 84, in reasonably good health. Dad at 58, had coronary artery disease, but of complications of a brain tumor. On physical exam, very pleasant and cooperative, certified nurse operating room, in no acute distress. He could arise from a chair without the use of his arms, but walks with some antalgia favoring the right lower extremity. He can rise on his heels and toes without any great difficulty and while he can forward flex. He comes to within about 15 cm of the floor with knees and arms extended producing pulling around the right hip. This is also true when he extends his back and laterally bends, but with no leg pain from the back generates down into the legs. When examined prone, he has no tenderness over the lumbosacral spine. There is no muscle spasm, increased warmth, erythema, venous stasis, or any masses. He has a gluteal atrophy on the right side, but no gluteal tenderness, no sciatic notch tenderness. In this prone position, deep tendon reflexes at the ankle are 1+, but equal. His left hip could be internally rotated approximately 30 degrees, externally rotated 45 degrees without any pain or apprehension with a negative femoral tension sign, while on his symptomatic right side, he has no internal rotation and this reproduces his pain. His external rotation is limited to about 10 or 15 degrees. Femoral tension testing is tolerated. When examined supine, he has a very slight leg length discrepancy. The right side may be about a 0.5 cm shorter than the left, but he also has about 10 or 15 degrees hip flexion contracture on the right, none on the left. Hip flexion to about 95 on the right and to about 100 on the left. Abduction is limited to 25 on the right versus 35 to 40 on the left. He has no pain on pelvic compression. Abdominal exam fails to reveal any mass or organomegaly. No back or leg pain is produced on deep palpation. Distal pulses are intact. Deep tendon reflexes at the left is +2, the right is +1. Sitting at the edge of the table, he has unequivocal atrophy of the right thigh musculature and his hip flexion and knee extension strength is limited to -4/5 versus 5/5 on the left. X-rays of his pelvis were reviewed in comparison to films that were done several years ago, and he has unequivocal evidence of moderately severe degenerative arthritis of the right hip with virtual loss of the joint space superolaterally and slight subluxation of the hip apparent. Contralateral hip is free of any degenerative process. Bone stock is excellent. ASSESSMENT: Signs and symptoms are compatible with moderately severe degenerative arthritis of the right hip, which is progressing in a fairly young gentleman who is losing his ability to remain aerobic. We discussed the natural history of the process and then various treatment options, but he certainly is a candidate for joint replacement, although the pure electivity of that intervention was emphasized. The goals, risks, and concerns associated with operative intervention were carefully explained and understood particularly as they relate to infection, blood loss, blood clots, clots that travel, persistent pain, need for future surgery, fracture dislocations, nerve or vascular injuries, leg length discrepancies, and heterotopic bone formation. He would like to proceed with surgery in the near future and I think he would be an excellent candidate, ceramic on high density polyethylene. He should be able to go home and I do not think he needs any special preoperative management, but because of his history of deep vein thrombophlebitis albeit several decades ago, I would probably treat him for three months with anticoagulating medication. CC: Adi Bonilla, DO [facility] [address] [place] [address] I have made the following determinations: Hip Exam: Right Prior surgery on this joint: Yes Rios Hip Score: Less than 30 degrees of fixed flexion: Yes Less than 10 degrees of fixed adduction: Yes less than 10 degrees of fixed int rotation in extension: Yes Limb Length discrepancy: 0.5cm Motion: Total degrees of Flexion:90 Total degrees of Abduction:20 Total degrees of Ext Rotation: 15 Total degrees of Adduction: 15 Gait Abnormality: Antalgic Radiographic evidence of joint damage: [0= normal; 1=minimal ; 2= some osteophytes , some narrowing ; 3= moderate osteophytes, significant narrowing, mild deformity; 4= large osteophytes, marked narrowing, obvious deformity]: 3= moderate osteophytes, significant narrowing, mild deformity Skin Integrity: Normal Pulses Palpable: Right PT: Yes Right DP:Yes Motor/Sensory: Right Distal Motor: Normal Distal Sensory: Normal Hip Abductors: 4 documented in this encounter Plan of Treatment Not on filedocumented as of this encounter Visit Diagnoses Diagnosis DJD (degenerative joint disease) of hip - Primary Osteoarthrosis, unspecified whether gene ralized or localized, pelvic region and thigh documented in this encounter Care Teams Cold Rolling Machine Setter Relationship Specialty Start Date End Date Adi Bonilla DO PCP - General 08/25/10 08/24/15 [address] [place] [address] documented as of this encounter
--- OUTSIDE RECORDS SUMMARY | 2022-06-29 14:23 | XMS_ITS | Encounter Summary ---
:1950 Author Organization [facility] [place] [address] Care Team Providers Name Role Phone ChadAdi sung Primary Care Provider Reason for Referral Surgical (Routine) - Complete - Patient Will Schedule External Appt Specialty Diagnoses / Procedures Referred By Contact Refer red To Contact Anesthesiology Diagnoses DJD (degenerative joint disease) of [facility] Damon Hobson MD Anesthesiology [facility] D [facility] [place] [address] [place] [address] Referral ID Status Reason Start Expiration Visits Visits Date Date Requested Authorized [id number] Complete - Consult, 03/07/2012 09/03/2012 1 1 Patient Will Test & Schedule Treat External Appt Encounter Details Date Type Department Care Team Description 03/07/2012 Orders Only Orthopaedics at [facility] Damon Hobson DJD (degenerative [facility] MD joint disease) of [facility] (Primary Dx) [place] [address] ORTHOPAEDIC SURGERY [place], [place] [address] Social History Tobacco Use Types Packs/Day Years Used Date Never Smoker Smokeless Tobacco: Never Used Alcohol Use Standard Drinks/Week Comments Yes 0 (1 standard drink = 0.6 oz pure alcoho l) Sex Assigned at Date Recorded Not on file documented as of this encounter Plan of Treatment Scheduled Orders Name Type Priority Associated Diagnoses Order S chedule TOTAL HIP ARTHROPLASTY Procedures Routine DJD (degenerative Ordered: 03/07/2012 joint disease) of hip Scheduled Referrals Name Type Priority Associated Order Schedule Diagnoses REFERRAL TO GENERAL Outpatient Referral Routine DJD (degenerat silverio Ordered: ANESTHESIOLOGY joint disease) of 03/07/20 12 hip documented as of this encounter Procedures Procedure Name Priority Date/Time Associated Diagnosis Comme nts TOTAL HIP ARTHROPLASTY - Routine 03/07/2012 5:04 PM DJD (degen erative POSTERIOR EDT joint disease) of hip documented in this encounter Results XR chest routine PA & lateral (05/08/2012 2:17 PM EDT) Anatomical Region Laterality Modality Chest N/A Radiographic Imaging Specimen (Source) Anatomical Collection Method Collection Time Re ceived Time Location / / Volume Laterality 05/08/2012 2:17 PM EDT Narrative 05/08/2012 2:19 PM EDT Examination CHEST ROUTINE PA+LAT Clinical History RIGHT HIP REPLACEMENT Preoperative; Comparison None. Technique PA and lateral view of the chest. ??Find ings: Findings Cardiac silhouette and mediastinum are w ithin normal limits There is flattening of the hemidiaphragm s and increase in the AP diameter of the chest consistent with COPD. ??There is atelectasis at the lung bases. ??No infiltrate is seen and there is no evide nce of effusion. Impression No acute cardiopulmonary disease. Procedure Note Chastity Gonzalez MD - 05/08/2012Form atting of this note might be different from the original. Examination CHEST ROUTINE PA+LAT Clinical History RIGHT HIP REPLACEMENT Preoperative; Comparison None. Technique PA and lateral view of the chest. Findin gs: Findings Cardiac silhouette and mediastinum are w ithin normal limits There is flattening of the hemidiaphragm s and increase in the AP diameter of the chest consistent with COPD. There is atelectasis at the lung bases. No infiltrate is seen and there is no evide nce of effusion. Impression No acute cardiopulmonary disease. Damon Hobson MD IMG DX ORDERABLES EKG 12 Lead (05/08/2012 2:01 PM EDT) Component Value Ref Range Test Analysis Performed Pathologis t Method Time At Signature Ventricular rate 67 BPM MUSE SYSTEM Atrial Rate 67 BPM MUSE SYSTEM P-R Interval 126 ms MUSE SYSTEM QRS Duration 104 ms MUSE SYSTEM Q-T Interval 404 ms MUSE SYSTEM QTC Calculated 426 ms MUSE SYSTEM (Bezet) Calculated R [place] 49 degrees MUSE SYSTEM Calculated T [place] 58 degrees MUSE SYSTEM INTERPRETATION Normal sinus rhythm MUSE SYSTEM Nonspecific T wave abnormality Abnormal ECG No previous ECGs available Confirmed by Raz Galvan MD ([id number]) on 05/09/2012 8:12:14 AM Specimen Anatomical Collection Method Collection Time Receive d Time (Source) Location / / Volume Laterality 05/08/2012 2:01 PM 2 8:12 EDT AM EDT Damon Hobson MD ECG ORDERABLES Performing Organization Address City/State/ZIP Code Phon e Number MUSE SYSTEM Urine culture Clean Catch Urine (05/08/2012 1:52 PM EDT) Patholo gist Method Time Signature Urine Culture CERNER ? Patient Name: SAL MARAVILLA ? Ordered By: DAMON HOBSON [facility] ? MR#: [id number] ?LOC: ??4V ? /Sex: ??1950 (62 years), [...] - GENERAL ORDER MICH Performing Organization Address City/[facility]/ZIP Code Phon e Number [address] CERNER MILLENNIUM Urinalysis with microscopic (05/08/2012 1:52 PM EDT) [facility] gist Method Time Signature Glucose UA Negative Negative [...] Appearance UA Clear Clear CERNER MILLENNIUM Spec [place] UA 1.011 1.002 - CERNER 1.030 MILLENNIUM [...] Hobson MD URINE ORDERABLES Performing Organization Address City/[facility]/ZIP Code Phon e Number [address] CERNER MILLENNIUM Prothrombin Time (05/08/2012 1:52 PM EDT) P athologist Signature PT 12.6 11.9 - 14.7 CERNER sec MILLENNIUM Comment: [facility] Transfusion Committee Guidelines: I NR [...] Organization Address City/State/ZIP Code Phon e Number [place] [phone] CERNER MILLENNIUM (ABNORMAL) Basic Metabolic Panel (non-fasting) (05/08/2012 1:52 PM EDT) athologist Signature Glucose Lvl 177 60 - 199 CERNER mg/dL MILLENNIUM Comment: Diabetes: >=200 mg/dL plus symp toms BUN 14 10 - 20 mg/dL CERNER MILLENNIU M Creatinine 0.97 0.80 - 1.50 mg/dL CERNER MILL ENNIUM Comment: Please note that the pediatric reference intervals supplied above were not validated at [facility]. Results from pediatri c patients should be [...] Hobson MD CHEMISTRY ORDERABLES Performing Organization Address City/State/[place] [address] CERNER MILLENNIUM CBC (with Diff) [...] Address City/State/[place] [address] [facility] documented in this encounter Visit Diagnoses Diagnosis DJD (degenerative joint disease) of hip - Primary Osteoarthrosis, unspecified whether gene ralized or localized, pelvic region and thigh DJD (degenerative joint disease) of hip Osteoarthrosis, unspecified whether gene ralized or localized, pelvic region and thigh documented in this encounter Care Teams Campaign Developer Relationship Specialty Start Date End Date Adi Bonilla DO PCP - General 08/25/10 08/24/15 [address] [place] [address] documented as of this encounter
--- OUTSIDE RECORDS SUMMARY | 2022-06-29 14:23 | XMS_ITS | Encounter Summary ---
:1950 Author Organization [facility] [place] [address] Care Team Providers Name Role Phone Adi Bonilla Primary Care Provider Encounter Details Date Type Department Care Team Description 03/02/2012 Hospital Encounter XRay at [facility] Hip pain, right [address] [place] [address] [place] [address] Social History Tobacco Use Types Packs/Day Years Used Date Never Smoker Smokeless Tobacco: Never Used Alcohol Use Standard Drinks/Week Comments Yes 0 (1 standard drink = 0.6 oz pure alcoho l) Sex Assigned at Date Recorded Not on file documented as of this encounter Medications at Time of Discharge Medication Sig Dispensed Refills Start Date End Date amlodipine (NORVASC) 5 mg Take 5 mg by mouth 0 tablet daily. albuterol (PROVENTIL Inhale 2 puffs into 0 05/27/2016 HFA;VENTOLIN HFA) 90 the lungs every 4 mcg/actuation inhaler hours as needed. Use with spacer fluticasone (FLOVENT) 110 Inhale 1 puff into 0 05/27/2016 mcg/actuation inhaler the lungs 2 times daily. modafinil (PROVIGIL) 100 Take 100 mg by 0 05/04/2012 mg tablet mouth daily as needed. atorvastatin (LIPITOR) 40 0 03/25/2010 05/18/2012 mg tablet losartan-hydrochlorothiazi 1 Tablet(s), PO, 0 05/18/2012 de (HYZAAR) 100-25 mg per Once daily tablet sildenafil (VIAGRA) 100 mg 100MG, PO, PRN 0 03/2505/23/2019 tablet documented as of this encounter Plan of Treatment Not on filedocumented as of this encounter Procedures Procedure Name Priority Date/Time Associated Diagnosis Comme nts XR PELVIS AP AND Routine 03/02/2012 9:33 AM Pain in joint, Res ults for this HIP 2 VIEWS OF 1 EDT pelvic region and proced ure are in HIP thigh the results section. documented in this encounter Results XR PELVIS AP AND HIP 2 VIEWS OF 1 HIP (03/02/2012 9:33 AM EDT) Anatomical Region Laterality Modality Pelvis, Hip N/A Radiographic Imaging Specimen (Source) Anatomical Collection Method Collection Time Re ceived Time Location / / Volume Laterality 03/02/2012 9:33 AM EDT Impressions 03/02/2012 4:29 PM EDT IMPRESSION: ?? Jcnxbetc-cu-kmnjjl degenerative change o f the right hip with bony overgrowth at the femoral head/neck junction and reena nal osteophyte formation. Severe joint space narrowing evident and progressed f rom 2009. Narrative 03/02/2012 4:29 PM EDT AP PELVIS AND TWO VIEWS OF THE RIGHT HIP: COMPARISON IMAGING: ??10/29/09. ?? CLINICAL INDICATION: ??Right hip DJD. Qu estion total hip arthroplasty. ?? TECHNIQUE: ??Total hip right pelvis frog -leg lateral right hip with Mag marker. ?? FINDINGS: ??There is severe degenerative change on the right. There is narrowing of the superior joint space. Bone overgr owth at the right femoral head/neck junction and medial osteophyte formation . There is likely a significant degree of impingement present. Subchondral scle rosis and subchondral cyst formation are evident. ?? There are mild degenerative changes of t he left hip, which has not progressed since the 2009 examination. A tiny calci fication is evident in the superior acetabular rim, which may be a labral-ty pe calcification. SI joints are intact. Degenerative changes are noted in the lo wer lumbar spine. Procedure Note Maddie Bennett MD - 03/02/2012Forma tting of this note might be different from the original. AP PELVIS AND TWO VIEWS OF THE RIGHT HIP : COMPARISON IMAGIN10/29/09. CLINICAL INDICATION: Right hip DJD. Ques tion total hip arthroplasty. TECHNIQUE: Total hip right pelvis frog-l eg lateral right hip with Mag marker. FINDINGS: There is severe degenerative c hange on the right. There is narrowing of the superior joint space. Bone overgr owth at the right femoral head/neck junction and medial osteophyte formation . There is likely a significant degree of impingement present. Subchondral scle rosis and subchondral cyst formation are evident. There are mild degenerative changes of t he left hip, which has not progressed since the 2010 examination. A tiny calci fication is evident in the superior acetabular rim, which may be a labral-ty pe calcification. SI joints are intact. Degenerative changes are noted in the lo wer lumbar spine. IMPRESSION IMPRESSION: Dylsiybn-xb-bpsiuq degenerative change o f the right hip with bony overgrowth at the femoral head/neck junction and reena nal osteophyte formation. Severe joint space narrowing evident and progressed f rom 2009. Anthony Benitez MD IMG DX ORDERABLES documented in this encounter Visit Diagnoses Diagnosis Hip pain, right Pain in joint, pelvic region and thigh documented in this encounter Care Teams Oil Dipper Relationship Specialty Start Date End Date Adi Bonilla DO PCP - General 08/25/10 08/24/15 [address] [place] [address] documented as of this encounter
--- OUTSIDE RECORDS SUMMARY | 2022-06-29 14:23 | XMS_ITS | Encounter Summary ---
:1950 Author Organization [facility] [place] [address] Care Team Providers Name Role Phone Adi Bonilla Primary Care Provider Encounter Details Date Type Department Care Team Description 05/08/2012 Hospital Encounter XRay at [facility], DR COLBY JHA ([address] Anthony Ernst MD [facility] [place] [address] joint disease) [place] [phone] Social History Tobacco Use Types Packs/Day Years [...] multivitamin Take 1 tablet by 0 05/18/20122012 Aage-Gz-EQ-Min mouth daily. (THERAPEUTIC-M) 27-0.4 mg tablet OXYcodone [...] Priority Date/Time Associated Diagnosis Comme nts XR CHEST PA AND Routine 05/08/2012 2:17 PM DJD (degenerative R esults for this LATERAL EDT joint disease) of procedure are in hip the results section. documented in this encounter Results XR chest [...] of effusion. Impression No acute cardiopulmonary disease. Anthony Benitez MD IMG DX ORDERABLES documented in this encounter Visit Diagnoses Diagnosis DJD (degenerative joint disease) of hip Osteoarthrosis, unspecified whether gene ralized or localized, pelvic region and thigh documented in this encounter Care Teams [employer] Relationship Specialty Start Date End Date Adi Bonilla DO PCP - General 08/25/10 08/24/15 [address] [place] [address] documented as of this encounter
== END ==
PROVIDERS: PCP Family Medicine; Visit Provider Nurse Practitioner Family
DX: J45.909 Unspecified asthma, uncomplicated (principal)
CPT/HCPCS: 71046

== ENCOUNTER → 2022-08-23 08:57 | Outpatient (BNVA) | payer MEDICARE, BC, SELFPAY | PROVIDERS: PCP Family Medicine; Referring Provider Family Medicine; Visit Provider Student in an Organized Health Care Education/Training Program | DX: M23.92 Unspecified internal derangement of left knee (principal) | CPT/HCPCS: 20610; J1040 ==

== ENCOUNTER 2022-10-21 02:32 | Outpatient (CLI) | payer MEDICARE, BC, SELFPAY ==
--- NOTE | 2022-10-21 07:51 | DI.MRI_ITS ---
Exam(s) MR LOWER JOINT LT WO EXAM: MR LOWER JOINT LT WO CLINICAL HISTORY: LEFT KNEE PAIN,INTERNAL DERANGEMENT, M23.92 TECHNIQUE: Multiplanar multisequence MRI of the knee was performed. COMPARISON: CR XR KNEE LT 3V AP,LAT,ALEX from 04/29/2022 FINDINGS: EFFUSION: There is a prominent joint effusion. There is also a Riley cyst in the medial popliteal fo ssa which measures 4.5 cm craniocaudal length by 1.6 cm wide by 1.3 cm AP. There is some deep subcut aneous fluid at the level of the medial gastrocnemius which implies that the Riley's cyst is leaking fluid. MARROW:There is no evidence of fracture, prominent bone contusion, nor osteochondral defects.. There are no significant osseous lesions. PATELLOFEMORAL COMPARTMENT: The quadriceps tendon is intact. The patellar ligament is intact. There is some surface irregularity-mild fissuring in the retropatellar cartilage but without prominen t thinning of the retropatellar cartilage nor abnormal intraosseous signal seen in the posterior aspe ct of the patella.There is also no intraosseous signal to suggest recent patellar dislocation. There are no patellar retinacular tears. CRUCIATE LIGAMENTS: The anterior cruciate ligament is intact.The posterior cruciate ligament is intac t. MEDIAL COMPARTMENT/MEDIAL MENISCUS: There is a subtle suggestion of an undersurface tear in the poste rior horn of the medial meniscus. No bucket-handle configuration. The meniscal root is intact. The re is no meniscocapsular separation. The anterior horn of the medial meniscus is intact.. There are no chondral defects, osteochondral defects, subarticular marrow edema, nor osteophytes evid ent. MEDIAL COLLATERAL LIGAMENT: Some associated fluid signal consistent with sprain. No high-grade full- thickness tear. LATERAL COMPARTMENT/LATERAL MENISCUS: There are tears in both anterior posterior horns of the lateral meniscus. There is some subarticular edema in the weight-bearing surface of the lateral femoral con dyle and lateral tibial plateau. There is cartilage loss over the posterior weight-bearing surface o f the femoral condyle. Mild subarticular edema seen in the lateral tibial plateau. Fibular head and neck unremarkable. ILIOTIBIAL BAND: Intact LATERAL COLLATERAL LIGAMENT COMPLEX: The fibular collateral ligament is intact. The biceps femoris t endon is intact.Popliteus muscle and tendon are intact. IMPRESSION: 1. There are tears of both horns of the lateral meniscus and a more subtle tear in the inferior aspec t of the posterior horn of the medial meniscus. 2. Sprain signal evident in the medial collateral ligament. Lateral collateral ligament complex is i ntact. 3. There are no cruciate ligament tears. 4. Superficial fissures are noted in the retropatellar cartilage. No abnormal intraosseous signal in the patella. 5. Prominent joint effusion. No loose intra-articular bodies. Also Riley cyst which appears partia lly ruptured DATA REPOSITORY:
== END 2022-10-21 02:52 ==
PROVIDERS: PCP Family Medicine; Visit Provider Student in an Organized Health Care Education/Training Program
DX: M25.562 Pain in left knee (principal); M23.8X2 Other internal derangements of left knee; S83.282A Other tear of lateral meniscus, current injury, left knee, initial encounter; S83.242A Other tear of medial meniscus, current injury, left knee, initial encounter; S83.412A Sprain of medial collateral ligament of left knee, initial encounter; M25.462 Effusion, left knee
CPT/HCPCS: 73721

== ENCOUNTER → 2022-10-28 09:34 | Outpatient (BNVA) | payer MEDICARE, BC, SELFPAY | PROVIDERS: PCP Family Medicine; Referring Provider Family Medicine; Visit Provider Student in an Organized Health Care Education/Training Program | DX: M23.92 Unspecified internal derangement of left knee (principal); S83.282A Other tear of lateral meniscus, current injury, left knee, initial encounter; S83.242A Other tear of medial meniscus, current injury, left knee, initial encounter; X58.XXXA Exposure to other specified factors, initial encounter | CPT/HCPCS: 99214 ==

== ENCOUNTER 2022-11-25 17:17 | Outpatient (CLI) | payer MEDICARE, BC, SELFPAY ==
--- NOTE | 2022-11-25 17:15 | RT.EKG_ITS ---
APPROVED REPORT Exam: Resting ECG Reason for Exam: High Blood Pressure Patient Location: O HR:58 bpm ECG Measurements Heart Rate 58 AXIS NE 200 P 40 QRSd 98 QRS 6 QT 431 T 72 QTc 424 Conclusion Sinus rhythm...normal P axis, V-rate 50- 99 LVH voltage, late transition
== END 2022-11-25 17:18 | disposition home or self-care (01) ==
LOC: DI.CM 17:19
PROVIDERS: PCP Family Medicine; Visit Provider Nurse Practitioner Family
DX: R07.89 Other chest pain (principal)
CPT/HCPCS: 93010

== ENCOUNTER 2022-12-06 03:08 | Outpatient (CLI) | payer MEDICARE, BC, SELFPAY ==
[2022-12-06 12:46] LABS: Calculated LDL 63 mg/dL (<100); Cholesterol 127 mg/dL (<200); Glucose 106 mg/dL (74-106); HDL Cholesterol 53 mg/dL (40-60); Triglyceride 58 mg/dL (<150)
== END 2022-12-06 03:09 | disposition home or self-care (01) ==
LOC: LOS 03:08
PROVIDERS: PCP Family Medicine; Visit Provider Family Medicine
DX: E78.5 Hyperlipidemia, unspecified (principal); R73.9 Hyperglycemia, unspecified
CPT/HCPCS: 36415; 80061; 82947

== ENCOUNTER 2023-02-16 00:26 | Outpatient (CLI) | payer MEDICARE, BC, SELFPAY ==
--- NOTE | 2023-02-16 07:15 | DI.CT_ITS ---
Exam(s) CT CHEST WO EXAM: CT CHEST WO CLINICAL HISTORY: f/u LLL collapse,J98.11,ATELECTASIS. TECHNIQUE: Imaging protocol: Axial computed tomography images were obtained and coronal and sagittal reformatted images were created and reviewed. CONTRAST MATERIAL: Noncontrast COMPARISON: CT CT CHEST PE CTA from 08/13/2021 CR XR CHEST 2V PA LATERAL from 06/29/2022 FINDINGS: Pulmonary parenchyma: No consolidation. No nodules. No atelectasis. Emphysema: None. Tracheobronchial tree: No mucous plugging. No bronchiectasis . Interstitial changes: None. Pleura: No effusion or pneumothorax. Heart: The heart is mildly dilated. The coronary arteries show severe calcifications. Status post CABG. Aorta: Ascending aorta 4.3 cm, unchanged from prior... Moderateatherosclerotic changes. Lymph nodes: No enlarged lymph nodes. Bones: Sternal wires. Degenerative changes are seen. No evidence of compression fracture. Upper abdomen: Unremarkable. IMPRESSION: No acute abnormality. RADIATION DOSE DELIVERED: 538.68mGy.cm Total DLP 538.68mGy.cm Total DLP DATA REPOSITORY: All CT scans at this facility are submitted to the National Radiology Data Registry (NRDR) Dose Index Registry (DIR) with the [employer] (ACR). RADIATION OPTIMIZATION: All CT scans at this facility use at least one of these dose optimization te chniques: automated exposure control; mA and/or kV adjustment per patient size (includes targeted exa ms where dose is matched to clinical indication); or iterative reconstruction.
== END 2023-02-16 00:46 ==
PROVIDERS: PCP Family Medicine; Visit Provider Student in an Organized Health Care Education/Training Program
DX: J98.11 Atelectasis (principal)
CPT/HCPCS: 71250

== ENCOUNTER 2023-05-24 04:32 | Outpatient (CLI) | payer MEDICARE, BC, SELFPAY ==
[2023-05-24 12:29] LABS: Anion Gap 7.7 mmol/L (3-11); BUN 21 mg/dL (7-18); CO2 28.3 mmol/L (21.0-32.0); CREATININE 1.1 mg/dL (0.70-1.30); Calcium 9.2 mg/dL (8.5-10.1); Chloride 101 mmol/L (98-107); Estimated GFR 71.32 (mL/min/1.73m2); Glucose 176 mg/dL (74-106); Potassium 4.4 mmol/L (3.5-5.1); Sodium 137 mmol/L (136-145)
== END 2023-05-24 04:33 | disposition home or self-care (01) ==
LOC: LOS 04:32
PROVIDERS: PCP Family Medicine; Visit Provider Family Medicine
DX: E87.1 Hypo-osmolality and hyponatremia (principal)
CPT/HCPCS: 36415; 80048; 99213

== ENCOUNTER 2023-05-30 02:43 | Outpatient (CLI) | payer MEDICARE, BC, SELFPAY ==
[2023-05-30 12:46] LABS: Hemoglobin A1C 5.5 % (<5.7)
== END 2023-05-30 02:44 | disposition home or self-care (01) ==
LOC: LOS 02:43
PROVIDERS: PCP Family Medicine; Visit Provider Family Medicine
DX: E11.51 Type 2 diabetes mellitus with diabetic peripheral angiopathy without gangrene (principal)
CPT/HCPCS: 36415; 83036

== ENCOUNTER → 2024-05-29 13:50 | Outpatient (BNVA) | payer MEDICARE, BC, SELFPAY | PROVIDERS: PCP Family Medicine; Visit Provider Internal Medicine Cardiovascular Disease | DX: I25.810 Atherosclerosis of coronary artery bypass graft(s) without angina pectoris (principal) | CPT/HCPCS: 99213 ==

== ENCOUNTER 2024-11-20 09:42 | Outpatient (CLI) | payer MEDICARE, BC, SELFPAY ==
[2024-11-20 13:42] LABS: CREATININE 1.1 mg/dL (0.70-1.30); Calculated LDL 53 mg/dL (<100); Cholesterol 126 mg/dL (<200); Estimated GFR 70.88 (mL/min/1.73m2); HDL Cholesterol 47 mg/dL (40-60); Potassium 4.5 mmol/L (3.5-5.1); Triglyceride 131 mg/dL (<150)
== END 2024-11-20 09:43 | disposition home or self-care (01) ==
LOC: LOS 09:43
PROVIDERS: PCP Family Medicine; Referring Provider Family Medicine; Visit Provider Family Medicine
DX: I10 Essential (primary) hypertension (principal); E78.5 Hyperlipidemia, unspecified
CPT/HCPCS: 36415; 80061; 82565; 84132

== ENCOUNTER 2025-05-06 10:23 | Outpatient (CLI) | payer MEDICARE, BC, SELFPAY ==
--- NOTE | 2025-05-06 10:15 | DI.RAD_ITS ---
Exam(s) XR FOOT RT COMPLETE EXAM: XR FOOT RT COMPLETE CLINICAL HISTORY: Right great toe pain MTPJ 1,arthritis rt foot, m19.071. TECHNIQUE: 2D digital imaging was performed of the right foot. Three images were obtained. AP, oblique and lateral views were obtained. COMPARISON: CR,XR XR TOE RT SECOND from 03/08/2020 FINDINGS: BONES: No acute fracture is present. No bony destructive lesion is seen. JOINTS: No dislocation present. There is mild narrowing of the 1st MTP joint. The joint spaces are otherwise well maintained. SOFT TISSUE: Mild vascular calcification is seen. IMPRESSION: 1. There is no acute fracture or dislocation. 2. Mild joint space narrowing of the 1st MTP joint. DATA REPOSITORY: RADIATION DOSE DELIVERED:
== END 2025-05-06 10:43 ==
LOC: DI 10:23
PROVIDERS: PCP Family Medicine; Visit Provider Physician Assistant Medical
DX: M19.071 Primary osteoarthritis, right ankle and foot (principal)
CPT/HCPCS: 73630

== ENCOUNTER 2025-05-30 07:53 | Outpatient (CLI) | payer MEDICARE, BC, SELFPAY ==
--- NOTE | 2025-05-30 07:45 | RT.EKG_ITS ---
APPROVED REPORT Exam: Resting ECG Reason for Exam: CAD PAF Patient Location: O HR:58 bpm ECG Measurements Heart Rate 58 AXIS NJ 197 P 24 QRSd 93 QRS 1 QT 428 T 37 QTc 421 Conclusion Sinus rhythm...normal P axis, V-rate 50- 99 Atrial premature beat Possible inferior infarct, old...Q >35mS, II III aVF
== END 2025-05-30 07:54 | disposition home or self-care (01) ==
LOC: DI.CARD 07:53
PROVIDERS: PCP Family Medicine; Visit Provider Internal Medicine Cardiovascular Disease
DX: I25.810 Atherosclerosis of coronary artery bypass graft(s) without angina pectoris (principal); I48.0 Paroxysmal atrial fibrillation
CPT/HCPCS: 93010

== ENCOUNTER → 2025-05-30 13:13 | Outpatient (BNVA) | payer MEDICARE, BC, SELFPAY | PROVIDERS: PCP Family Medicine; Referring Provider Family Medicine; Visit Provider Internal Medicine Cardiovascular Disease | DX: I25.810 Atherosclerosis of coronary artery bypass graft(s) without angina pectoris (principal) | CPT/HCPCS: 99213; 93005 ==